=== PATIENT | female | born 1965 | race Caucasian/White ===

== ENCOUNTER → 2016-11-11 | Outpatient (CLI) | payer MEDICARE, MEDICAID ==
[~2016-11-11] MED LIST: AC325T; ASP325T; BNZT2T; BUPR150T6; CLTR1C90; DCS100C; LITH300T27; LVT.05T; RSP1T; RSP2T; TOLTA4; TPR100T
--- NOTE | 2016-11-13 19:16 | Diagnostic Imaging Report ---
Bilateral screening mammogram The current study was also evaluated with a Computer Aided Detection (CAD) system. Indication: Screening. No current complaints stated on the questionnaire. COMPARISON: 10/05/15. FINDINGS: The breasts are composed of scattered fibroglandular densities. There are scattered benign-appearing calcifications. There is a stable 6 mm focal asymmetry in the upper-outer aspect of the left breast from multiple prior exams suggestive of benign etiology. An intramammary lymph node is also suggested in the outer aspect of the right breast. Benign-appearing calcifications are seen. Allowing for technique and positional differences, no suspicious change is seen. IMPRESSION: No significant change. ACR BI-RADS Category 2: Benign findings. Result letter will be mailed to the patient. Note: At least 10% of breast cancer is not imaged by mammography. Dictated by: Dictated on workstation # [id number]
== END ==
LOC: RAD 14:23
PROVIDERS: ATTEND Family Medicine
DX: Z12.31 Encounter for screening mammogram for malignant neoplasm of breast (principal)
CPT/HCPCS: 77067

== ENCOUNTER → 2017-12-03 | Outpatient (CLI) | payer MEDICARE, MEDICAID ==
--- NOTE | 2017-12-03 12:11 | Diagnostic Imaging Report ---
INDICATION: Routine screening. COMPARISON is made with prior study from 11/11/2016 and 10/05/2015. 2-D and 3-D bilateral screening mammography was performed Computer Aided Detection (CAD) system. FINDINGS: Scattered fibroglandular densities are identified bilaterally. There is an enlarging nodular density noted in the right breast mid depth just lateral to the nipple line and superiorly located. This does appear to be fairly well-circumscribed. There are questionable small calcifications associated with the nodule. Additional views are recommended. There are benign calcifications bilaterally. The left breast is unremarkable. The axillae are unremarkable. IMPRESSION: BI-RADS 0 Enlarging nodular density in the upper outer right breast mid depth. Additional views and ultrasound are recommended for further evaluation. ACR BI-RADS Category 0: Incomplete. (Needs additional imaging evaluation). Result letter will be mailed to the patient. Note: At least 10% of breast cancer is not imaged by mammography. Dictated by: Dictated on workstation # [id number]
== END ==
LOC: RAD 11:15
PROVIDERS: ATTEND Family Medicine
DX: Z12.31 Encounter for screening mammogram for malignant neoplasm of breast (principal)
CPT/HCPCS: 77067

== ENCOUNTER → 2017-12-14 | Outpatient (CLI) | payer MEDICARE, MEDICAID ==
--- NOTE | 2017-12-14 15:44 | Diagnostic Imaging Report ---
INDICATION: Right breast density. The patient presents for additional views. COMPARISON: Recent screening study from 12/03/2017 and mammogram from 11/11/2016. TECHNIQUE: 2D and 3D unilateral right diagnostic mammography was performed including spot compression CC and ML as well as conventional mediolateral views. FINDINGS: The additional views confirm the presence of a circumscribed nodular density in the upper and outer right breast approximately 10 cm from the nipple. This contains punctate calcifications along the margin. Further evaluation with ultrasound is recommended. IMPRESSION: Circumscribed nodular density in the upper outer right breast 10 cm from the nipple, as described. Further evaluation with ultrasound is recommended. ACR BI-RADS Category 0: Incomplete. (Needs additional imaging evaluation). Result letter will be mailed to the patient. Note: At least 10% of breast cancer is not imaged by mammography. Dictated by: Dictated on workstation # [id number]
--- NOTE | 2017-12-14 15:50 | Diagnostic Imaging Report ---
INDICATION: Right breast density. This study was performed for further evaluation. COMPARISON: Correlation is made with the diagnostic mammogram from earlier this same day. FINDINGS: Sonographic interrogation of the upper outer right breast was performed. No sonographic abnormality is seen. There does appear to be a small lipoma just below the skin surface at the 9 o'clock location of the right breast measuring 13 mm x 10 mm. No mass is identified 9-10 cm from the nipple in the upper outer right breast to account for the mammographic abnormality. IMPRESSION: No significant sonographic abnormality is seen. In particular, no definite lesion is identified in the upper outer right breast 9-10 cm from the nipple to account for the mammographic abnormality. The mammographic features are benign; however, a followup right mammogram in 6 months is recommended to show continued stability. ACR BI-RADS Category 3: Probably benign findings. Dictated by: Dictated on workstation # [id number]
== END ==
LOC: RAD 14:34
PROVIDERS: ATTEND Family Medicine
DX: N63.11 Unspecified lump in the right breast, upper outer quadrant (principal)

== ENCOUNTER → 2018-06-24 | Outpatient (CLI) | payer MEDICARE, MEDICAID ==
--- NOTE | 2018-06-24 19:21 | Diagnostic Imaging Report ---
INDICATION: Right breast density. Patient presents for six-month followup. COMPARISON: Correlation is made with prior mammograms from 12/03/2017, 11/11/2016, and 10/05/2015. TECHNIQUE: 2D and 3D unilateral right diagnostic mammography was performed. The current study was also evaluated with a Computer Aided Detection (CAD) system. FINDINGS: A circumscribed nodule in the upper-outer right breast at mid depth appears stable. There are small punctate calcifications associated with the mass. No new mass is seen. No malignant-appearing microcalcifications are identified. Axilla is unremarkable. IMPRESSION: Stable right breast nodule. Additional followup in six months is recommended to assure continued stability. ACR BI-RADS Category 3: Probably benign findings. Result letter will be mailed to the patient. Note: At least 10% of breast cancer is not imaged by mammography. Dictated by: Dictated on workstation # [id number]
== END ==
LOC: RAD 12:38
PROVIDERS: ATTEND Family Medicine
DX: N63.10 Unspecified lump in the right breast, unspecified quadrant (principal)

== ENCOUNTER → 2019-06-22 | Outpatient (CLI) | payer MEDICARE, MEDICAID ==
--- NOTE | 2019-06-22 15:56 | Diagnostic Imaging Report ---
INDICATION: 6 month followup right breast nodule. COMPARISON: Correlation is made with the prior mammograms from 12/27/2018, 06/24/2018, 12/03/2017, and 11/11/2016. FINDINGS: The circumscribed nodule with punctate calcifications in the upper and outer aspect of the right breast at mid depth appears stable. No new mass or malignant appearing microcalcifications are seen. The right axilla is unremarkable. IMPRESSION: Stable right breast nodule. This now shows 18 months of stability. An additional 6 month followup to prove 2 years of stability is recommended. ACR BI-RADS Category 3: Probably benign findings. Result letter will be mailed to the patient. Note: At least 10% of breast cancer is not imaged by mammography. Dictated by: Dictated on workstation # [id number]
== END ==
LOC: RAD 13:28
PROVIDERS: ATTEND Family Medicine
DX: N63.10 Unspecified lump in the right breast, unspecified quadrant (principal)

== ENCOUNTER 2019-09-20 20:12 | Emergency (ER) | payer MEDICARE, MEDICAID ==
[~2019-09-20] VITALS: Ht 160 cm; Wt 81.2 kg
--- NOTE | 2019-09-20 20:39 | ED Integumentary General ---
General Chief Complaint: Laceration Stated Complaint: FALL - R EYE LAC Nursing Triage Note: FELL GOING UP THE STAIRS HAS A SMALL SKIN TEAR ON RIGHT EYEBROW Source: patient Exam Limitations: no limitations History of Present Illness Date Seen by Provider: Sep 20, 2019 Time Seen by Provider: 20:39 Allergies and Home Medications Allergies Coded Allergies: No Known Drug Allergies (Verified Allergy, Unknown, 02/25/08) Past Ghvylow-Myxwfh-Aihrfv Hx Patient Social History Recent Foreign Travel: No Contact w/Someone Who Travel: No Recent Infectious Disease Expo: No Past Medical History : No (ON DEPPO SHOT SO NO PERIODS) Physical Exam Vital Signs Vital Signs - First Documented 09/20/19 20:19 Temp 36.4 Pulse 97 Resp 20 B/P (MAP) 128/85 (99) Pulse Ox 95 O2 Delivery Room Air Capillary Refill : Less Than 3 Seconds Progress/Results/Core Measures Results/Orders My Orders Orders - MIRIAM GONZALEZ Dipht,Pertuss(Acell),Tet Adult (Boostrix (09/20/19 20:45) Vital Signs/I&O 09/20/19 20:19 Temp 36.4 Pulse 97 Resp 20 B/P (MAP) 128/85 (99) Pulse Ox 95 O2 Delivery Room Air Blood Pressure Mean: 99 Departure Impression Primary Impression: Skin tear Disposition: 01 HOME, SELF-CARE Condition: Stable/Unchanged Departure-Patient Inst. Decision time for Depature: 20:51 Referrals: BRIANNA VIDES DO (PCP/Family) Primary Care Physician Patient Instructions: Laceration Repair With Glue (DC) Add. Discharge Instructions: Watch for signs of infection such as redness, swelling, drainage, pain. Follow- up with your primary care provider as needed. Let the glue fall off on its own. Return back to the emergency room for worsening symptoms or concerns as needed. All discharge instructions reviewed with patient and/or family. Voiced understanding. MIRIAM GONZALEZ Sep 20, 2019 20:39
[2019-09-20] MEDS ORDERED: TETANUS,DIPTH,PERTUSS P/F (BOOSTRIX) 0.5 ML VIAL IM ONE (20:45)
[2019-09-20 21:15] VITALS: BP 128/85
--- OUTSIDE RECORDS SUMMARY | 2019-09-20 23:26 | XMS REPORT ---
Author Author [employer] Organization [employer] Address [address] [place] [address] Care Team Providers Care Tobacco Shaker Name Role Phone RAMÍREZ MONTOYA Unavailable Unavailable AMBER SANCHEZ Unavailable Unavailable BRENDA, JUANITA Unavailable Unavailable FREDY FINN Unavailable Unavailable RAMÍREZ UMANZOR Unavailable Unavailable BRENDA, JUANITA Unavailable PALLAVI, DAWNY Unavailable PALLAVI, DAWNY Unavailable RAMÍREZ MONTOYA Unavailable Unavailable PALLAVI, DAWNY Unavailable PALLAVI, DAWNY Unavailable BRENDA, JUANITA Unavailable RAMÍREZ MONTOYA Unavailable Unavailable JOHN BASS Unavailable PALLAVI, DAWNY Unavailable RAMÍREZ MONTOYA Unavailable Unavailable DEB CROSS Unavailable PALLAVI, DAWNY Unavailable JOHN BASS Unavailable JOHN BASS Unavailable RAMÍREZ MONTOYA Unavailable Unavailable PALLAVI, DAWNY Unavailable PALLAVI, DAWNY Unavailable PALLAVI, DAWNY Unavailable JOHN BASS Unavailable PALLAVI, DAWNY Unavailable PALLAVI, DAWNY Unavailable MARY ANN SOTO Unavailable PALLAVI, DAWNY Unavailable PALLAVI, DAWNY Unavailable PALLAVI, DAWNY Unavailable PALLAVI, DAWNY Unavailable PALLAVI, DAWNY Unavailable JANLILLIERAMÍREZ Unavailable Unavailable PALLAVI, DAWNY Unavailable GELBRIANNA CRESPO DO A Unavailable Unavailable PCP, NONE Unavailable Unavailable GELLENLEONOR BRIANNA A Unavailable Unavailable PALLAVI, DAWNY Unavailable JOHN BASS Unavailable Allergies Normalized Allergy Reported Date of Reaction(s) Care Provider Facility Allergy Type classification allergen Allergy Onset DA (21 Unclassified No Known Drug 02-25-2008 - no information BRIANNA Not Available sources.) Allergies GELLENDER , DO (46989) Medications Medication Ingredient Drug Dose Dates Status Sig Sig Care Class(es) (Normalized) (Original) Provid er no Vol-Plus no 01-09-20 Active no Vol-Plus no information 27-1 MG information 18 information 27-1 MG name (7 Translation Orally Once (no sources.) s: [ a day 1 phone) Vol-Plus tablet 24h 27-1 MG, Jan, Vol-Plus 30 day(s) 27-1 MG] Active no Vol-Plus no 01-09-20 Active take 1 Vol-Plus no information 27-1 MG information 18 tablet by 27-1 MG n beth (1 source.) mouth once Orally Once (no daily a day 1 phone) tablet 24h Jan, 30 day(s) Active Problems Active Problems Problem Normalized Date of Normalized Normalized Provider Fac ility Classification Problem(s) Problem Problem Problem Sta tus Onset/Resoluti Duration on Mood disorders Bipolar Chronic Active MARY ANN contreras (20 sources.) disorder, [address] [facility] current of [facility] episode [place] ([address]) hypomanic Translations: [ - Bipolar affective disorder, current episode hypomanic F31.0, Bipolar affective disorder, current episode hypomanic, Bipolar affective disorder, current episode hypomanic, Bipolar affective disorder, current episode hypomanic, - Bipolar affective disorder, current episode hypomanic F31.0] Spondylosis; Dorsalgia, Episodic Active [facility]NA [facility] Via intervertebral unspecified GELLENDER , DO [facility] - disorders; [place] other back (24872) problems (3 sources.) Residual Encounter for Episodic Active DAWJAYCE PALLAVI Com munity codes; prophylactic [facility] unclassified fluoride of [facility] (2 sources.) administration [place] ([address]) Translations: [ - Encounter for prophylactic fluoride administration Z29.3] Other injuries Knee, leg, Episodic Active BRIANNA [facility] Vi a and conditions ankle, and GELLENDER , DO [place] due to foot injury Hospital - external [place] causes (3 (91718) sources.) Other Other abnormal Episodic Active BRIANNA Not Marisabel ilable screening for and GELLENDER , DO (98407) suspected inconclusive conditions findings on (not mental diagnostic disorders or imaging of infectious breast disease) (20 Translations: sources.) [ ENCNTR SCREEN MAMMOGRAM FOR MALIGNANT NE, OTH SCREEN MAMMO-MALIGN NEOPLASM OF CHRISTIANO] External cause Other external Episodic Active BRIANNA [facility] Via codes: cause status GELLENDER , DO [place] Unspecified (1 Hospital - source.) [place] ([address]) External cause Unspecified Episodic Active BRIANNA [facility] V ia codes: Fall (1 fall GELLENDER , DO [place] source.) Hospital - [place] (69281) Nonmalignant Unspecified Episodic Active BRIANNA [facility] Via breast lump in the GELLENDER , DO [place] conditions (10 right breast, Hospital - sources.) unspecified [place] quadrant (32431) Translations: [ UNSPECIFIED LUMP IN THE RIGHT BREAST, UP, UNSPECIFIED LUMP IN THE LEFT BREAST, UNS, UNSPECIFIED LUMP IN THE RIGHT BREAST, UN] Past or Other Problems Problem Normalized Date of Normalized Normalized Provider Fac ility Classification Problem(s) Problem Problem Problem Sta tus Onset/Resoluti Duration on Residual Encounter for no information no information RAM[facility]REZ [facility]GENEFormerly [facility] codes; prophylactic 78106 [facility] unclassified fluoride of [facility] (2 sources.) administration [place] () Translations: [ - Encounter for prophylactic fluoride administration Z29.3] External cause Other external no information no information PATRICIA HARD Not Available codes: cause status GELLENDER , DO (40830) Unspecified (2 sources.) External cause Unspecified no information no information IQRA D Not Available codes: Fall (2 fall GELLENDER , DO (05919) sources.) Nonmalignant Unspecified no information no information BRIANNA Not Available breast lump in the GELLENDER , DO (09860) conditions (6 right breast, sources.) upper outer quadrant Translations: [ UNSPECIFIED LUMP IN THE RIGHT BREAST, UN] Procedures Procedure Normalized Procedure Procedure Result Performer Facility Date 06-01-2018 Dental prophylaxis no information no name (no phone ) [facility] ([id number]) 02-09-2018 Dental prophylaxis no information no name (no phone ) [facility] (19269) 10-21-2017 Dental prophylaxis no information no name (no phone ) [facility] (03480) 04-07-2018 [facility] visit, estab pt no information no name (no jolie ne) [facility] (83544) 03-10-2018 [facility] visit, estab pt no information no name (no jolie ne) [facility] (82986) 02-10-2018 [facility] visit, estab pt no information no name (no jolie ne) [facility] ([id number]) 01-08-2018 [facility] visit, estab pt no information no name (no jolie ne) [facility] (23718) 11-27-2017 [facility] visit, estab pt no information no name (no jolie ne) [facility] (42873) 09-29-2018 [facility] visit, estab no information no name (no jolie ne) [facility] (21034) 01-01-2018 [facility] visit, estab no information no name (no jolie ne) [facility] (37072) 09-29-2017 [facility] visit, estab no information no name (no jolie ne) [facility] (00711) 02-09-2018 Intraoral periapical no information no name (no jolie ne) [facility] add [facility] 02-09-2018 [place] ([address]004) - 02-09-2018 02-09-2018 Intraoral periapical no information no name (no jolie ne) [facility] ([id number]) 03-10-2018 LAB NOT BILLED BY no information no name (no phone) [facility] (40411) 09-29-2018 Psychotherapy no information no name (no phone) [facility] ([id number]) 01-01-2018 Psychotherapy no information no name (no phone) [facility] w/patient 30 minutes [facility] ([id number]) 09-29-2017 Psychotherapy no information no name (no phone) Co Critical access hospital w/patient 30 minutes [facility] (16336) 06-01-2018 Topical fluoride no information no name (no phone) [facility]57520[facility] 02-09-2018 Topical fluoride no information no name (no phone) Critical access hospital[facility]ish [facility] (17917) 10-21-2017 Topical fluoride no information no name (no phone) [facility] access hospital[facility] (67910) Immunizations The data below is from unstructured sources No Known Immunizations No Known Immunizations No Known Immunizations No Known Immunizations No Known Immunizations No Known Immunizations No Known Immunizations No Known Immunizations No Known Immunizations No Known Immunizations No Known Immunizations No Known Immunizations No Known Immunizations No Known Immunizations No Known Immunizations No Known Immunizations No Known Immunizations No Known Immunizations No Known Immunizations No Known Immunizations No Known Immunizations No Known Immunizations No Known Immunizations No Known Immunizations No Known Immunizations No Known Immunizations No Known Immunizations No Known Immunizations No Known Immunizations No Known Immunizations No Known Immunizations No Known Immunizations No Known Immunizations No Known Immunizations No Known Immunizations No Known Immunizations No Known Immunizations No Known Immunizations No Known Immunizations No Known Immunizations No Known Immunizations No Known Immunizations No Known Immunizations No Known Immunizations No Known Immunizations No Known Immunizations No Known Immunizations No Known Immunizations No Known Immunizations No Known Immunizations No Known Immunizations No Known Immunizations No Known Immunizations No Known Immunizations No Known Immunizations No Known Immunizations No Known Immunizations No Known Immunizations No Known Immunizations No Known Immunizations No Known Immunizations No Known Immunizations No Known Immunizations No Known Immunizations No Known Immunizations Results Test Name Value Interpretation Reference Range Date Time Fa cility (Normalized) (Normalized) (Medline Reference) No panel information on 2019-01-05 1-Hydroxymidazol no information (no code) [facility] (U) [facility] [Mass/Vol] [facility] (17201) 7-Aminoclonazepa no information (no code) [facility] m (U) [Mass/Vol] [facility] (98980) Alpha no information (no code) [facility] hydroxyalprazola [facility] m (U) [Mass/Vol] [facility] (43297) Alpha no information (no code) [facility] hydroxytriazolam [facility] (U) [Mass/Vol] [facility] (62212) Amphetamines Ql no information (no code) [facility] th (U) [facility] (65516) Barbiturates Ql no information (no code) Community [facility] th (U) [facility] (02437) Benzodiazepines no information (A) [facility] Ql (U) [facility] (20424) Benzoylecgonine no information (no code) Community [facility] Ql (U) [facility] (49421) COMMENT no information (no code) [facility] (42070) Creatinine (U) 18.4 mg/dL (L) [facility] [Mass/Vol] [facility] (88097) Drug screen CONSISTENT (no code) [facility] comment (U) [facility] [Interp] [facility] (66092) Hydroxyethylflur no information (no code) Community [facility] azepam (U) [facility] [Mass/Vol] [facility] (91169) Lorazepam (U) 101 (H) [facility] [Mass/Vol] [facility] (19180) Methadone Ql (U) no information (no code) [facility] (54398) Nordiazepam (U) no information (no code) [facility] [Mass/Vol] [facility] (67342) Opiates Ql (U) no information (no code) [facility] (16355) Oxazepam (U) no information (no code) [facility] [Mass/Vol] [facility] (24152) Oxidants Ql (U) no information (no code) [facility] (69758) Oxycodone Ql (U) no information (no code) Community a [facility] [place] (25353) pH (U) 6.66 [pH] (no code) 4.6 - 8 [pH] [facility] (69428) Phencyclidine Ql no information (no code) [facility] (U) [facility] (51616) Prescribed Drug Lorazepam (no code) [facility] th 1 [facility] (63725) Specific gravity 1.003 (no code) [facility] (U) [Rel [place] [facility] (66041) Temazepam (U) no information (no code) [facility] [Mass/Vol] [facility] (11899) Tetrahydrocannab no information (no code) [facility] inol Ql (U) [facility] (52711) No panel information on 2017-01-22 Bacteria Note (no code) 01-22-2017 Not Available identified Aer 14:54-0400 (03888) cx Nom (Genital specimen) No panel information on 2017-01-21 [employer] Cyto Comment (no code) 01-21-2017 Not Availa ble stain Nom 18:51-0400 ([id number]) (Cvx/Vag) [ID] Diagnosis ICD Comment (no code) 01-21-2017 Not Availabl e code 18:51-0400 ([id number]) [Identifier] Microscopic . (no code) 01-21-2017 Not Available observation 18:51-0400 ([id number]) Other stain Nom (Unsp spec) Note: Comment (no code) 01-21-2017 Not Available 18:51-0400 ([id number]) Pathology report Comment (no code) 01-21-2017 Not Avail able final diagnosis 18:51-0400 ([id number]) Narrative Statement of Comment (no code) 01-21-2017 Not Available adequacy Cyto 18:51-0400 (67518) stain (Cvx/Vag) [Interp] no information Comment (no code) 01-21-2017 Not Availab le 18:51-0400 ([id number]) Vital Signs Vital Sign Value Interpretation Reference Date Time Care Prov ider Facility (Normalized) (Normalized) Range BMI (Body Mass 38.94 kg/m2 (no code) 15 - 25 kg/m2 10-2018 [facility] Index) 12:20-0400 09491 [facility] (59026) BMI (Body Mass 38.94 kg/m2 (no code) 15 - 25 kg/m2 03-10-2018 [facility] Index) 11:40-0400 67108 [facility] (82135) BMI (Body Mass 40.64 kg/m2 (no code) 15 - 25 kg/m2 01-08-2018 D [facility] Index) 15:20-0400 71480 [facility] (37649) BMI (Body Mass 40.93 kg/m2 (no code) 15 - 25 kg/m2 11-27-2017 [facility] Index) 16:00-0400 30145 [facility] (11020) Height 163.32 cm (no code) cm 04-07-2018 [facility] 12:200400 72391 [facility] (47984) Height 163.32 cm (no code) cm 03-10-2018 [facility] 11:40-0400 15227 [facility] (04347) Height 163.32 cm (no code) cm 01-08-2018 [facility] 15:200400 19349 [facility] (20269) Height 163.32 cm (no code) cm 11-27-2017 [facility] 16:000400 51210 [facility] (91710) Weight 103.87 kg (no code) kg 04-07-2018 [facility] 12:20-0400 43920 [facility] (74983) Weight 103.87 kg (no code) kg 03-10-2018 [facility] 11:40-0400 73953 [facility] (49122) Weight 108.41 kg (no code) kg 01-08-2018 [facility] 15:200400 49165 [facility] (26525) Weight 109.18 kg (no code) kg 11-27-2017 [facility] 16:00-0400 97406 [facility] (96514) Interventions No Information Plan of Treatment Normalized Care Care Detail Care Activity Date Care Provider F acility Activity () [facility] 04-30-2018 - MICHELLE JOHNSTONNHART [address] [facility] 04-30-2018 - [facility] F/u 60 min 04-30-2018 [place] (05051) (-60) [facility] 07-08-2018 - RAMÍREZ MONTOYA 16704 [facility] Behavior[facility] Health COUNT INCLUDES THE [facility] 07-08-2018 - [facility] F/u 60 min 07-08-2018 [place] (65657) ([facility]) [facility] 07-14-2018 - [facility] [address] [facility] F/U 20 COUNT INCLUDES THE [facility] 07-14-2018 - [facility] min 07-14-2018 [place] (85753) [facility] 08-17-2019 [facility] [address] [phone] [facility] (33814) [facility] 09-28-2019 JOHN BASS [address] ([address]) [facility] 09-07-2019 [facility] [place] [address] ([address]) [facility] 08-22-2019 - [facility] [phone] [facility] 08-22-2019 - [facility] 08-22-2019 [place] (60153) no information no information no information [facility] 667 49 [facility] (60036) Goals No Information Social History No Information Functional Status No Information Mental Status No Information Encounters Encounter Normalized Encounter Encounter Diagnosis Care Provi lenoor Organization Date Type 04-30-2018 (-60) Behavioral Schizoaffective JOHN ACUNA (no [facility] - Health F/u 60 min disorder, depressive phone) (no phone) 04-30-2018 type - 04-30-2018 06-01-2018 (D-AUDP) Encounter for RAMÍREZ MONTOYA (no [employer] - D-Developmental prophylactic fluoride phone) DENTAL (no phone) 06-01-2018 Program (Adult administration - Outreach) 06-01-2018 02-09-2018 (D-AUDP) Encounter for dental MARY ANNESTRADA SOTO (no ph one) [facility] (no - D-Developmental examination and phone) 02-09-2018 Program (Adult cleaning without - Outreach) abnormal findings 02-09-2018 05-12-2018 (PSY-FU-20) Psychiatry no information MICHELLE MEDINA T (no [facility] - F/U 20 min phone) (no phone) 05-12-2018 - 05-12-2018 04-07-2018 (PSY-FU-20) Psychiatry Schizoaffective MICHELLE NIEVESA RT (no [employer] [facility] - F/U 20 min disorder, depressive phone) (no p steve) 04-07-2018 type - 04-07-2018 03-10-2018 (PSY-FU-20) Psychiatry Schizoaffective MICHELLE NIEVESA RT (no [facility] - F/U 20 min disorder, depressive phone) (no p steve) 03-10-2018 type - 03-10-2018 02-10-2018 (PSY-FU-20) Psychiatry Schizoaffective MICHELLE JOHNSTONNHA RT (no [facility] - F/U 20 min disorder, depressive phone) (no p steve) 02-10-2018 type - 02-10-2018 09-23-2018 [facility] Disorder of teeth and MARY ANN SOTO (n o phone) [facility]GetLikemindsCes[facility] PRICE (no - supporting structures, phone) 09-23-2018 unspecified - 09-23-2018 07-04-2019 [facility] Dental caries, CHICHO TEE (no [facility] - DENTAL unspecified phone) DENTAL (no jolie ne) 07-04-2019 - 07-04-2019 06-01-2019 [facility] Encounter for dental CHICHO RAZO S (no [employer] - DENTAL examination and phone) DENTAL (no phone) 06-01-2019 cleaning without - abnormal findings 06-01-2019 08-17-2019 [facility] Schizoaffective JOHN ACUNA (no [facility] disorder, depressive phone) (no phone) type 08-10-2019 [facility] Schizoaffective DAWNY BARNHAR T (no [facility] disorder, depressive phone) (no phone) type 07-27-2019 [facility] Schizoaffective DAWNY BARNHAR T (no [facility] disorder, depressive phone) (no phone) type 07-20-2019 [facility] Schizoaffective DAWNY BARNHAR T (no [facility] - disorder, depressive phone) (no phone ) 07-20-2019 type - 07-20-2019 06-27-2019 [facility] Schizoaffective JOHN ACUNA (no [facility] - disorder, depressive phone) (no phone ) 06-27-2019 type - 06-27-2019 06-17-2019 [facility] Schizoaffective DAWNY BARNHAR T (no [facility] - disorder, depressive phone) (no phone ) 06-17-2019 type - 06-17-2019 05-06-2019 [facility] Schizoaffective DAWNY BARNHAR T (no [facility] - disorder, depressive phone) (no phone ) 05-06-2019 type - 05-06-2019 05-03-2019 [facility] Schizoaffective JOHN ACUNA (no [facility] - disorder, depressive phone) (no phone ) 05-03-2019 type - 05-03-2019 04-06-2019 [facility] Schizoaffective DAWNY BARNHAR T (no [facility] - disorder, depressive phone) (no phone ) 04-06-2019 type - 04-06-2019 03-08-2019 [facility] Schizoaffective JOHN ACUNA (no [facility] - disorder, depressive phone) (no phone ) 03-08-2019 type - 03-08-2019 01-05-2019 [facility] Schizoaffective JOHN ACUNA (no [facility] - disorder, depressive phone) (no phone ) 01-05-2019 type - 01-05-2019 01-05-2019 [facility] Schizoaffective INÉSNY PRESTONNHAR T (no [facility] - disorder, depressive phone) (no phone ) 01-05-2019 type - 01-05-2019 11-10-2018 [facility] Schizoaffective JOHN ACUNA (no [facility] - disorder, depressive phone) (no phone ) 11-10-2018 type - 11-10-2018 10-06-2018 [facility] Schizoaffective MICHELLE JOHNSTONNHAR T (no [facility] - disorder, depressive phone) (no phone ) 10-06-2018 type - 10-06-2018 09-29-2018 [facility] Schizoaffective JOHN ACUNA (no [facility] - disorder, depressive phone) (no phone ) 09-29-2018 type - 09-29-2018 08-18-2018 [facility] Schizoaffective JOHN ACUNA (no [facility] - disorder, depressive phone) (no phone ) 08-18-2018 type - 08-18-2018 07-26-2018 [facility] Schizoaffective JOHN ACUNA (no [facility] - disorder, depressive phone) (no phone ) 07-26-2018 type - 07-26-2018 07-14-2018 [facility] Schizoaffective MICHELLE NIEVESAR T (no [facility] - disorder, depressive phone) (no phone ) 07-14-2018 type - 07-14-2018 07-08-2018 [facility] Schizoaffective JOHN ACUNA (no [facility] - disorder, depressive phone) (no phone ) 07-08-2018 type - 07-08-2018 01-11-2018 [facility] no information MICHELLE OLIVO (no [facility] - phone) (no phone) 01-11-2018 - 01-11-2018 05-11-2019 [facility] Encounter for dental CHICHO STILILLIE (no [facility] DENTAL examination and phone) [facility] DENTAL (no 05-11-2019 cleaning without phone) - abnormal findings 05-11-2019 01-25-2019 [facility] Disorder of teeth and RAMÍREZTORI ANANDO N (no [facility] DENTAL supporting structures, phone) [facility] (no 01-25-2019 unspecified phone) - 01-25-2019 02-10-2018 Patient encounter no information no name (no phone) no organization name (no phone) 01-08-2018 Patient encounter no information no name (no phone) no organization name (no phone) 01-01-2018 Patient encounter no information no name (no phone) no organization name (no phone) NEGATED Patient encounter no information no name (no phone) no organization name 12-14-2017 (no phone) NEGATED Patient encounter no information no name (no phone) no organization name 12-03-2017 (no phone) NEGATED Patient encounter no information no name (no phone) no organization name 11-27-2017 (no phone) 09-29-2017 Patient encounter no information no name (no phone) no organization name (no phone) 08-19-2017 Patient encounter no information no name (no phone) no organization name (no phone) 07-28-2017 Patient encounter no information no name (no phone) no organization name (no phone) 08-17-2019 Patient encounter no information NONE PCP (no phone ) [facility] (no phone) 08-10-2019 Patient encounter no information no name (no phone) no organization name procedure (no phone) 07-20-2019 Patient encounter no information no name (no phone) no organization name procedure (no phone) 06-22-2019 Patient encounter no information no name (no phone) no organization name procedure (no phone) 06-01-2019 Patient encounter no information no name (no phone) no organization name procedure (no phone) 03-08-2019 Patient encounter no information no name (no phone) no organization name procedure (no phone) 01-05-2019 Patient encounter no information no name (no phone) no organization name procedure (no phone) 12-27-2018 Patient encounter no information no name (no phone) no organization name procedure (no phone) 11-10-2018 Patient encounter no information no name (no phone) no organization name procedure (no phone) 10-06-2018 Patient encounter no information no name (no phone) no organization name procedure (no phone) 08-18-2018 Patient encounter no information no name (no phone) no organization name procedure (no phone) 07-26-2018 Patient encounter no information no name (no phone) no organization name procedure (no phone) 07-14-2018 Patient encounter no information no name (no phone) no organization name procedure (no phone) 07-08-2018 Patient encounter no information no name (no phone) no organization name procedure (no phone) 06-24-2018 Patient encounter no information no name (no phone) no organization name procedure (no phone) 06-24-2018 Patient encounter no information no name (no phone) no organization name procedure (no phone) 12-14-2017 Patient encounter no information no name (no phone) no organization name procedure (no phone) 12-03-2017 Patient encounter no information no name (no phone) no organization name procedure (no phone) 11-11-2016 Patient encounter no information no name (no phone) no organization name procedure (no phone) 03-28-2016 Patient encounter no information no name (no phone) no organization name procedure (no phone) 03-28-2016 Patient encounter no information no name (no phone) no organization name procedure (no phone) 10-05-2015 Patient encounter no information no name (no phone) no organization name procedure (no phone) 10-05-2015 Patient encounter no information no name (no phone) no organization name procedure (no phone) 11-01-2014 Patient encounter no information no name (no phone) no organization name procedure (no phone) 11-01-2014 Patient encounter no information no name (no phone) no organization name procedure (no phone) 09-08-2014 Patient encounter no information no name (no phone) no organization name procedure (no phone) 07-22-2013 Patient encounter no information no name (no phone) no organization name procedure (no phone) 07-08-2012 Patient encounter no information no name (no phone) no organization name procedure (no phone) 07-03-2011 Patient encounter no information no name (no phone) no organization name procedure (no phone) 02-09-2018 Periodic oral no information no name (no phone) no organization name evaluation (no phone) 08-10-2019 Telephone encounter no information MICHELLE NIEVESART ( no [facility] phone) (no phone) 07-13-2019 Telephone encounter Schizoaffective DAWNY PALLAVI (no [facility] - disorder, depressive phone) (no phone ) 07-13-2019 type - 07-13-2019 06-23-2019 Telephone encounter Schizoaffective DAWNY PALLAVI (no [facility] [address] (no - disorder, depressive phone) phone) 06-23-2019 type - 06-23-2019 05-09-2019 Telephone encounter Schizoaffective DAWNY PALLAVI (no [facility] - disorder, depressive phone) (no phone ) 05-09-2019 type - 05-09-2019 05-06-2019 Telephone encounter Schizoaffective DAWNY PALLAVI (no [facility] - disorder, depressive phone) (no phone ) 05-06-2019 type - 05-06-2019 01-18-2019 Telephone encounter Schizoaffective DAWNY PALLAVI (no [facility] - disorder, depressive phone) (no phone ) 01-18-2019 type - 01-18-2019 12-30-2018 Telephone encounter Schizoaffective DAWNY PALLAVI (no [facility] - disorder, depressive phone) (no phone ) 12-30-2018 type - 12-30-2018 12-17-2018 Telephone encounter Schizoaffective DAWNY PALLAVI (no [facility] - disorder, depressive phone) (no phone ) 12-17-2018 type - 12-17-2018 11-19-2018 Telephone encounter Schizoaffective DAWNY PALLAVI (no [facility] - disorder, depressive phone) (no phone ) 11-19-2018 type - 11-19-2018 10-27-2018 Telephone encounter Schizoaffective DAWNY PALLAVI (no [facility] - disorder, depressive phone) (no phone ) 10-27-2018 type - 10-27-2018 09-29-2018 Telephone encounter Schizoaffective MICHELLE OLIVO (no [facility] - disorder, depressive phone) (no phone ) 09-29-2018 type - 09-29-2018 07-05-2018 Telephone encounter Schizoaffective MICHELLE OLIVO (no [facility] - disorder, depressive phone) (no phone ) 07-05-2018 type - 07-05-2018 06-07-2018 Telephone encounter Schizoaffective MICHELLE NIEVESART (no [facility] - disorder, depressive phone) (no phone ) 06-07-2018 type - 06-07-2018 04-16-2018 Telephone encounter Schizoaffective MICHELLE OLIVO (no [facility] - disorder, depressive phone) (no phone ) 04-16-2018 type - 04-16-2018 04-13-2018 Telephone encounter no information MICHELLE OLIVO ( no [facility] - phone) (no phone) 04-13-2018 - 04-13-2018 02-17-2018 Telephone encounter Schizoaffective MICHELLE OLIVO (no [facility] - disorder, depressive phone) (no phone ) 02-17-2018 type - 02-17-2018 02-16-2018 Telephone encounter Schizoaffective MICHELLE OLIVO (no [facility] - disorder, depressive phone) (no phone ) 02-16-2018 type - 02-16-2018 no information Encounter for dental no name (no phone) no or ganization name examination and (no phone) cleaning without abnormal findings no information Dental examination no name (no phone) no orga nization name (no phone) no information Encounter for no name (no phone) no organiza tion name gynecological (no phone) examination (general) (routine) without abnormal findings Medical Equipment No Information Payers No Information History general Narrative - Reported Note Type Note Facility History general Narrative - Reported Type Medical Schizoaffective disorder, d epressive type History Medical Bipolar affective disorder, current episode hypomanic History Surgical No Surgical history informa tion History [facility] ([id number]) Summary Purpose eClinicalWorks SubmissioneClinicalWorks SubmissioneClinicalWorks SubmissioneClinicalWorks SubmissioneClinicalWorks Submission Additional Source Comments This clinical document has been generated using [employer] software that has been certified by the Office of the National Coordinator for Health Information Technology (ONC 15.99.04.3023.Diam.[id number]) and the National Committee for Head Of Partner Development (NCQA, as an eMeasure certified technology). FOR RECORDS PERTAINING TO PATIENTS WHO ARE OR HAVE BEEN ENROLLED IN A CHEMICAL D EPENDENCY/SUBSTANCE ABUSE PROGRAM, SOME INFORMATION MAY BE OMITTED. This clinica l summary was aggregated from multiple sources. Caution should be exercised in using it in the provision of clinical care. This summary normalizes information from multiple sources, and as a consequence, information in this document may ma terially change the coding, format and clinical context of patient data. In frank tion, data may be omitted in some cases. CLINICAL DECISIONS SHOULD BE BASED ON T HE PRIMARY CLINICAL RECORDS. [employer] provides no warranty or guara ntee of the accuracy or completeness of information in this document.The followi ng information is based on time limited clinical information UNRECOGNIZED CONTENT PROVIDED BELOW FOR UNRECOGNIZED SECTION REASON FOR VISIT Requests return [facility] f/[facility] f/udepakote 02/16/2018ADULT OUTREACH CLASS [facility] f/uB f/u WB-MA, LABSMedication questionMedication questionmed refill f /u. Torres RNmed refill f/u UNRECOGNIZED CONTENT PROVIDED BELOW FOR UNRECOGNIZED SECTION MEDICAL (GENERAL) HISTORY Type Description Date Surgical History No know Surgical history
--- OUTSIDE RECORDS SUMMARY | 2019-09-20 23:27 | XMS REPORT ---
Author Author Afshan OLIVO Organization [facility] Address [address] [place] [address] Care Team Providers Care Director Ship Name Role Phone MICHELLE OLIVO Unavailable PROBLEMS Type Condition ICD9-CM Code [id number] Code Onset Dates Condition S tatus SNOMED Code Problem Bipolar affective disorder, current episode hypomanic F31.0 Active 87246138 Problem Schizoaffective disorder, depressive type F25.1 Active [id number] ALLERGIES No Information ENCOUNTERS Encounter Location Date Diagnosis [facility] [address] [id number] [address] [place] [id number] Jul, [facility] [address] [id number] [address] [place] [phone] Jul, [facility] [address] [facility] [id number] [address] [place] [id number] Jun, Schizoaffective disorder, de pressive type F25.1 [facility] [address] [id number] [address] [place] [id number] May, Encounter for prophylactic f luoride administration Z29.3 [facility] [address] [facility] [id number] [address] [place] [id number] Apr, Schizoaffective disorder, de pressive type F25.1 [facility] [address] [facility] [id number] [address] [place] [id number] Apr, Schizoaffective disorder, de pressive type F25.1 [facility] [address] [facility] [id number] [address] [place] [phone] Apr, [facility] [address] [facility] [id number] [address] [place] [phone] Apr, Schizoaffective disorder, de pressive type F25.1 and Bipolar affective disorder, current episode hypomanic F31.0 [facility] [address] [id number] [address] [place] [phone] Mar, Schizoaffective disorder, de pressive type F25.1 and Bipolar affective disorder, current episode hypomanic F31.0 [facility] [address] [id number] [address] [place] [id number] Feb, Schizoaffective disorder, de pressive type F25.1 [facility] [address] [id number] [address] [place] [phone] Feb, Schizoaffective disorder, de pressive type F25.1 [facility] [address] [facility] [id number] [address] [place] [phone] Feb, Schizoaffective disorder, de pressive type F25.1 and BMI 40.0-44.9, adult Z68.41 [facility] [address] [id number] [address] [place] [address] [phone] Feb, Dental examination Z01.20 [facility] [address] [facility] [id number] [address] [place] [phone] Jan, [facility] [address] [facility] [id number] [address] [place] [phone] Jan, Schizoaffective disorder, de pressive type F25.1 and BMI 40.0-44.9, adult Z68.41 [facility] [address] [id number] [address] [place] [phone] Dec, Schizoaffective disorder, de pressive type F25.1 [facility] [address] [facility] [id number] [address] [place] [phone] November, Schizoaffective disorder, de pressive type F25.1 and BMI 40.0-44.9, adult Z68.41 [facility] [address] [id number] [address] [place] [phone] Oct, Schizoaffective disorder, de pressive type F25.1 [facility] [address] [id number] [address] [place] [address] [phone] Oct, Dental examination Z01.20 [facility] [address] [id number] [address] [place] [phone] Sep, Schizoaffective disorder, de pressive type F25.1 [facility] [address] [id number] [address] [place] [phone] Aug, Schizoaffective disorder, de pressive type F25.1 and BMI 40.0-44.9, adult Z68.41 [facility] [address] [id number] [address] [place] [phone] Jul, Schizoaffective disorder, de pressive type F25.1 [facility] [address] [facility] [id number] [address] [place] [id number] Jul, Schizoaffective disorder, de pressive type F25.1 [facility] [address] [id number] [address] [place] [phone] Jul, Schizoaffective disorder, de pressive type F25.1 [facility] [address] [id number] [address] [place] [address] [id number] Jul, Dental examination Z01.20 [facility] [address] [id number] [address] [place] [address] [id number] Jul, Dental examination Z01.20 [facility] [address] [id number] [address] [place] [phone] Jun, Schizoaffective disorder, de pressive type F25.1 [facility] [address] [facility] [id number] [address] [place] [phone] May, Schizoaffective disorder, de pressive type F25.1 and BMI 40.0-44.9, adult Z68.41 [facility] [address] [facility] [id number] [address] [place] [phone] Apr, Schizoaffective disorder, de pressive type F25.1 [facility] [address] [id number] [address] [place] [id number] Mar, Schizoaffective disorder, de pressive type F25.1 [facility] [address] [id number] [address] [place] [address] [id number] Mar, 2017 Dental examination Z01.[id number] [place] [address] [phone] [id number] Feb, 2017 Dental examination Z01.20 [facility] [address] [id number] [address] [place] [phone] Feb, Schizoaffective disorder, de pressive type F25.1 [facility] [address] [facility] [id number] [address] [place] [phone] Feb, Schizoaffective disorder, de pressive type F25.1 [facility] [address] [facility] [id number] [address] [place] [phone] Feb, [facility] [address] [facility] [id number] [address] [place] [phone] Feb, Schizoaffective disorder, de pressive type F25.1 [facility] [address] [facility] [id number] [address] [place] [phone] Jan, Schizoaffective disorder, de pressive type F25.1 [facility] [address] [id number] [address] [place] [phone] Jan, Well woman exam with routine gynecological exam Z01.419 [facility] [address] [id number] [address] [place] [phone] Jan, Schizoaffective disorder, de pressive type F25.1 [facility] [address] [id number] [address] [place] [address] [phone] Dec, Encounter for dental examina tion and cleaning without abnormal findings Z01.[address] [facility] [address] [id number] [place] [id number] Dec, Dental examination Z01.20 [facility] [address] [id number] [address] [place] [phone] Dec, Schizoaffective disorder, de pressive type F25.1 [facility] [address] [id number] [address] [place] [phone] Oct, Schizoaffective disorder, de pressive type F25.1 [facility] [address] [id number] [address] [place] [phone] Oct, Schizoaffective disorder, de pressive type F25.1 [facility] [address] [id number] [address] [place] [address] [phone] Sep, Dental examination Z01.20 [facility] [address] [id number] [address] [place] [phone] Aug, Schizoaffective disorder, de pressive type F25.1 [facility] [address] [id number] [address] [place] [phone] Jul, Schizoaffective disorder, de pressive type F25.1 [facility] [address] [id number] [address] [place] [address] [id number] Jun, Encounter for dental examina tion and cleaning without abnormal findings Z01.[address] [facility] [address] [id number] [id number] Jun, Dental examination Z01.20 [facility] [address] [id number] [address] [place] [phone] Mar, Dental examination Z01.20 [facility] [address] [id number] [address] [place] [address] [phone] Feb, Encounter for dental examina tion and cleaning without abnormal findings Z01.20 [facility] [address] [id number] [id number] November, Encounter for dental examination Z01.20 [facility] [address] [id number] [place] [id number] Oct, Dental examination Z01.20 [facility] [address] [id number] [address] [place] [address] [id number] Oct, Encounter for dental examina tion and cleaning without abnormal findings Z01.20 [facility] [address] [id number] [address] [place] [address] [id number] Jul, Dental examination Z01.20 [facility] [address] [id number] [address] [place] [address] [phone] May, Encounter for dental examina tion Z01.20 [facility] [address] [id number] [address] [place] [address] [id number] Jan, Dental examination V72.2 IMMUNIZATIONS No Known Immunizations SOCIAL HISTORY Never Assessed REASON FOR VISIT med refill PLAN OF CARE VITAL SIGNS MEDICATIONS Medication Instructions Dosage Frequency Start Date End Date Duration S tatus Latuda 120 MG Orally Once a day 1 tablet with food 24h 30 days Active RESULTS No Results PROCEDURES No Known procedures INSTRUCTIONS MEDICATIONS ADMINISTERED No Known Medications MEDICAL (GENERAL) HISTORY Type Description Date Surgical History No know Surgical history
--- OUTSIDE RECORDS SUMMARY | 2019-09-20 23:27 | XMS REPORT ---
Author Author Afshan OLIVO Organization [facility] [address] [place] [address] Care Team Providers Care Quality Compliance Manager Name Role Phone MICHELLE OLIVO Unavailable PROBLEMS Type Condition ICD9-CM Code JDL03-MD Code Onset Dates Condition S tatus SNOMED Code Problem Schizoaffective disorder, depressive type F25.1 Active 48521992 Problem Bipolar affective disorder, current episode hypomanic F31.0 Active 22632910 ALLERGIES No Information ENCOUNTERS Encounter Location Date Diagnosis OUTREACH [facility] [place] [address] [id number] [address] 17 Aug, 2019 [facility] [place] [address] [address] Aug, [facility] [place] [address] [address] Jul, Schizoaffective disorder, depressive typ e F25.1 [facility], [place] [id number] [place] [address] Jul, Schizoaffective disorder, depressive typ e F25.1 [facility] [address] [facility] [place] [address] Jun, Caries K02.9 [facility], [place] [id number] [place] [address] Jun, Schizoaffective disorder, depressive typ e F25.1 [facility] [address] [facility] [address] [id number] [place] [address] Jun, [facility] [address] [facility] [address] [id number] [place] [address] Jun, Schizoaffective disorder, depressive type F25.1 [facility], [place] [id number] [place] [address] Jun, Schizoaffective disorder, depressive typ e F25.1 [facility] [address] [facility] [place] [id number] May, Dental examination Z01.20 and Caries K02 .9 [facility] [address] [address] [id number] [address] May, Dental examination Z01.20 ; Oral health maintenance status requiring routine preventive dental care K08.9 and Caries K02.9 [facility], [place] [address] [address] May, Schizoaffective disorder, depressive typ e F25.1 [facility], [place] [address] [address] May, Schizoaffective disorder, depressive typ e F25.1 [facility] [place] [address] [address] May, Schizoaffective disorder, depressive typ e F25.1 [facility] [place] [address] [address] Apr, Schizoaffective disorder, depressive typ e F25.1 [facility] [place] [address] [address] Apr, Schizoaffective disorder, depressive typ e F25.1 [facility] [place] [address] [address] Mar, Schizoaffective disorder, depressive typ e F25.1 [facility] [address] [address] [id number] [address] Jan, Oral health maintenance stat us requiring routine preventive dental care K08.9 [facility], [place] [address] [address] Jan, Schizoaffective disorder, depressive typ e F25.1 [facility], [place] [address] [address] Jan, Schizoaffective disorder, depressive typ e F25.1 [facility] [place] [address] [address] Jan, Schizoaffective disorder, depressive typ e F25.1 [facility] [place] [address] [address] Dec, Schizoaffective disorder, depressive typ e F25.1 [facility] [place] [address] [address] Dec, Schizoaffective disorder, depressive typ e F25.1 [facility] [place] [address] [address] November, Schizoaffective disorder, depressive typ e F25.1 [facility] [place] [address] [address] November, Schizoaffective disorder, depressive typ e F25.1 [facility] [place] [address] [address] November, Schizoaffective disorder, depressive typ e F25.1 [facility] [place] [address] [address] Oct, Schizoaffective disorder, depressive typ e F25.1 [facility] [place] [address] [address] Oct, Schizoaffective disorder, depressive typ e F25.1 [facility] [place] [address] [address] Sep, Schizoaffective disorder, depressive typ e F25.1 [facility] [place] [address] [address] Sep, Schizoaffective disorder, depressive typ e F25.1 [facility] [address] [id number] [place] [address] Sep, Oral health maintenance status requiring routine preventive dental care K08.9 ; Dental examination Z01.20 and Caries K02.9 [facility], [place] [address] [address] Aug, Schizoaffective disorder, depressive typ e F25.1 [facility] [place] [address] [address] Jul, Schizoaffective disorder, depressive typ e F25.1 [facility] [place] [address] [address] Jul, Schizoaffective disorder, depressive typ e F25.1 [facility] [place] [address] [address] Jul, Schizoaffective disorder, depressive typ e F25.1 [facility] [place] [address] [address] Jun, Schizoaffective disorder, depressive typ e F25.1 [facility] [place] [address] [address] Jun, Schizoaffective disorder, depressive typ e F25.1 [facility] [address] [id number] May, Encounter for prophylactic fluoride admi nistration Z29.3 [facility], [place] [address] [address] Apr, Schizoaffective disorder, depressive typ e F25.1 [facility] [place] [address] [address] Apr, Schizoaffective disorder, depressive typ e F25.1 [facility] [place] [address] [address] Apr, [facility] [place] [address] [address] Apr, Schizoaffective disorder, depressive typ e F25.1 and Bipolar affective disorder, current episode hypomanic F31.0 [facility], [place] [address] [address] 05 Mar, 2018 Schizoaffective disorder, depressive typ e F25.1 and Bipolar affective disorder, current episode hypomanic F31.0 [facility] [place] [address] [address] 15 Feb, 2018 Schizoaffective disorder, depressive typ e F25.1 [facility] [place] [address] [address] Feb, Schizoaffective disorder, depressive typ e F25.1 [facility] [place] [address] [address] 08 Feb, 2018 Schizoaffective disorder, depressive typ e F25.1 and BMI 40.0-44.9, adult Z68.41 [facility] [address] [id number] Feb, Dental examination Z01.20 [facility], [place] [address] [address] Jan, [facility] [place] [address] [address] Jan, Schizoaffective disorder, depressive typ e F25.1 and BMI 40.0-44.9, adult Z68.41 [address] [address] Dec, Schizoaffective disorder, depressive typ e F25.1 [facility], [place] [address] [address] November, Schizoaffective disorder, depressive typ e F25.1 and BMI 40.0-44.9, adult Z68.41 [facility] [place] [address] [address] Oct, Schizoaffective disorder, depressive typ e F25.1 [facility] [address] [id number] Oct, Dental examination Z01.20 [facility] [place] [address] [address] Sep, Schizoaffective disorder, depressive typ e F25.1 [facility], [place] [address] [address] Aug, Schizoaffective disorder, depressive typ e F25.1 and BMI 40.0-44.9, adult Z68.41 [facility] [place] [address] [address] Jul, Schizoaffective disorder, depressive typ e F25.1 [facility], [place] [address] [address] Jul, Schizoaffective disorder, depressive typ e F25.1 [facility] [place] [address] [address] Jul, Schizoaffective disorder, depressive typ e F25.1 [facility] [address] [id number] Jul, Dental examination Z01.20 [facility] [address] [id number] Jul, Dental examination Z01.20 [facility] [place] [address] [address] Jun, Schizoaffective disorder, depressive typ e F25.1 [facility], [place] [address] [address] May, Schizoaffective disorder, depressive typ e F25.1 and BMI 40.0-44.9, adult Z68.41 [facility] [place] [address] [address] Apr, Schizoaffective disorder, depressive typ e F25.1 [facility] [place] [address] [address] Mar, Schizoaffective disorder, depressive typ e F25.1 [facility] [address] [id number] Mar, Dental examination Z01.[address] [facility] [address] [id number] [facility] [id number] Feb, Dental examination Z01.20 [facility], [place] [id number] [place] [address] Feb, Schizoaffective disorder, depressive typ e F25.1 [facility] [place] [address] [address] Feb, Schizoaffective disorder, depressive typ e F25.1 [facility], [place] [address] [address] Feb, [facility] [place] [address] [address] Feb, Schizoaffective disorder, depressive typ e F25.1 [facility], [place] [address] [address] Jan, Schizoaffective disorder, depressive typ e F25.1 [facility], [place] [address] [address] Jan, Well woman exam with routine gynecologic al exam Z01.419 [facility], [place] [address] [address] Jan, Schizoaffective disorder, depressive typ e F25.1 [facility] [address] [facility] [place] [id number] Dec, Encounter for dental examination and macho aning without abnormal findings Z01.20 [facility] [address] [id number] [place] [id number] Dec, Dental examination Z01.20 [facility], [place] [address] [address] Dec, Schizoaffective disorder, depressive typ e F25.1 [facility] [place] [address] [address] Oct, Schizoaffective disorder, depressive typ e F25.1 [facility] [place] [address] [address] Oct, Schizoaffective disorder, depressive typ e F25.1 [facility] [address] [id number] Sep, Dental examination Z01.20 [facility] [place] [address] [address] 08 Aug, 2016 Schizoaffective disorder, depressive typ e F25.1 [facility] [place] [address] [address] Jul, Schizoaffective disorder, depressive typ e F25.1 [facility] [address] [id number] Jun, Encounter for dental examination and macho aning without abnormal findings Z01.20 [facility] [address] [facility] [id number] Jun, Dental examination Z01.20 [facility] [place] [address] [address] Mar, Dental examination Z01.20 [facility] [address] [id number] Feb, Encounter for dental examination and macho aning without abnormal findings Z01.20 [facility] [address] [facility] [id number] November, Encounter for dental examination Z01.20 [facility] [address] [facility] [address] [id number] [id number] Oct, Dental examination Z01.20 [facility] [address] [id number] Oct, Encounter for dental examination and macho aning without abnormal findings Z01.20 [facility] [address] [id number] Jul, Dental examination Z01.20 [facility] [address] [id number] May, Encounter for dental examination Z01.20 [facility] [address] [facility] [id number] [place] [id number] Jan, Dental examination V72.2 IMMUNIZATIONS No Known Immunizations SOCIAL HISTORY Never Assessed REASON FOR VISIT PLAN OF CARE VITAL SIGNS MEDICATIONS Medication Instructions Dosage Frequency Start Date End Date Duration S tatus Vol-Plus 27-1 MG Orally Once a day 1 tablet 24h Jan, 30 day(s) Active RESULTS No Results PROCEDURES No Known procedures INSTRUCTIONS MEDICATIONS ADMINISTERED No Known Medications MEDICAL (GENERAL) HISTORY Type Description Date Medical History Schizoaffective disorder, depressive typ e Medical History Bipolar affective disorder, current epis ode hypomanic Surgical History No Surgical history information
--- OUTSIDE RECORDS SUMMARY | 2019-09-20 23:27 | XMS REPORT ---
Author Author Afshan OLIVO Organization [facility] [address] Address [address] [place] [address] Care Team Providers Care Getterer Name Role Phone MICHELLE OLIVO Unavailable PROBLEMS Type Condition ICD9-CM Code NCU09-PB Code Onset Dates Condition S tatus SNOMED Code Problem Bipolar affective disorder, current episode hypomanic F31.0 Active [id number] Problem Schizoaffective disorder, depressive type F25.1 Active [id number] ALLERGIES No Information ENCOUNTERS Encounter Location Date Diagnosis [place] [id number] [facility] [id number] [address] [place] [address] Jul, [facility] [address] [id number] [address] [place] [address] Apr, [facility] [address] [id number] [address] [place] [address] Apr, Schizoaffective disorder, de pressive type F25.1 [facility] [address] [id number] [address] [place] [address] Apr, [facility] [address] [facility] [id number] [address] [place] [address] Apr, Schizoaffective disorder, de pressive type F25.1 and Bipolar affective disorder, current episode hypomanic F31.0 [facility] [address] [id number] [address] [place] [address] Mar, Schizoaffective disorder, de pressive type F25.1 and Bipolar affective disorder, current episode hypomanic F31.0 [facility] [address] [id number] [address] [place] [address] Feb, Schizoaffective disorder, de pressive type F25.1 [facility] [address] [id number] [address] [place] [address] Feb, Schizoaffective disorder, de pressive type F25.1 [facility] [address] [id number] [address] [place] [address] Feb, Schizoaffective disorder, de pressive type F25.1 and BMI 40.0-44.9, adult Z68.41 [facility] [address] [id number] [address] [place] [id number] Feb, Dental examination Z01.20 [facility] [address] [id number] [address] [place] [address] Jan, [facility] [address] [id number] [address] [place] [phone] Jan, Schizoaffective disorder, de pressive type F25.1 and BMI 40.0-44.9, adult Z68.41 [facility] [address] [id number] [address] [place] [address] Dec, Schizoaffective disorder, de pressive type F25.1 [facility] [address] [id number] [address] [place] [address] November, Schizoaffective disorder, de pressive type F25.1 and BMI 40.0-44.9, adult Z68.41 [facility] [address] [id number] [address] [place] [address] Oct, Schizoaffective disorder, de pressive type F25.1 [facility] [address] [id number] [address] [place] [id number] Oct, Dental examination Z01.20 [facility] [address] [id number] [address] [place] [address] Sep, Schizoaffective disorder, de pressive type F25.1 [facility] [address] [id number] [address] [place] [address] Aug, Schizoaffective disorder, de pressive type F25.1 and BMI 40.0-44.9, adult Z68.41 [facility] [address] [facility] [id number] [address] [place] [address] Jul, Schizoaffective disorder, de pressive type F25.1 [facility] [address] [facility] [id number] [address] [place] [address] Jul, Schizoaffective disorder, de pressive type F25.1 [facility] [address] [id number] [address] [place] [id number] Jul, Schizoaffective disorder, de pressive type F25.1 [facility] [address] [id number] [address] [place] [id number] Jul, Dental examination Z01.20 [facility] [address] [id number] [address] [place] [id number] Jul, Dental examination Z01.20 [facility] [address] [facility] [id number] [address] [place] [address] Jun, Schizoaffective disorder, de pressive type F25.1 [facility] [address] [facility] [id number] [address] [place] [address] May, Schizoaffective disorder, de pressive type F25.1 and BMI 40.0-44.9, adult Z68.41 [facility] [address] [facility] [id number] [address] [place] [id number] Apr, Schizoaffective disorder, de pressive type F25.1 [facility] [address] [facility] [id number] [address] [place] [address] Mar, Schizoaffective disorder, de pressive type F25.1 [facility] [address] [id number] [address] [place] [id number] Mar, Dental examination Z01.20 [place] [id number] [facility] [id number] [id number] Feb, Dental examination Z01.20 [facility] [address] [facility] [id number] [address] [place] [address] Feb, Schizoaffective disorder, de pressive type F25.1 [facility] [address] [facility] [id number] [address] [place] [phone] Feb, Schizoaffective disorder, de pressive type F25.1 [facility] [address] [facility] [id number] [address] [place] [address] Feb, [facility] [address] [facility] [id number] [address] [place] [phone] Feb, Schizoaffective disorder, de pressive type F25.1 [facility] [address] [facility] [id number] [address] [place] [phone] Jan, Schizoaffective disorder, de pressive type F25.1 [facility] [address] [facility] [id number] [address] [place] [phone] Jan, Well woman exam with routine gynecological exam Z01.419 [facility] [address] [facility] [id number] [address] [place] [phone] Jan, Schizoaffective disorder, de pressive type F25.1 [facility] [address] [id number] [address] [place] [phone] Dec, Encounter for dental examina tion and cleaning without abnormal findings Z01.20 [facility] [address] [id number] [id number] Dec, Dental examination Z01.20 [facility] [address] [facility] [id number] [address] [place] [phone] Dec, Schizoaffective disorder, de pressive type F25.1 [facility] [address] [facility] [id number] [address] [place] [phone] Oct, Schizoaffective disorder, de pressive type F25.1 [facility] [address] [id number] [address] [place] [phone] Oct, Schizoaffective disorder, de pressive type F25.1 [facility] [address] [id number] [address] [place] [id number] Sep, Dental examination Z01.20 [facility] [address] [id number] [address] [place] [phone] Aug, Schizoaffective disorder, de pressive type F25.1 [facility] [address] [id number] [address] [place] [phone] Jul, Schizoaffective disorder, de pressive type F25.1 [facility] [address] [id number] [address] [place] [id number] Jun, Encounter for dental examina tion and cleaning without abnormal findings Z01.20 [facility] [address] [id number] [id number] Jun, Dental examination Z01.20 [facility] [address] [id number] [address] [place] [phone] Mar, Dental examination Z01.20 [facility] [address] [id number] [address] [place] [id number] Feb, Encounter for dental examina tion and cleaning without abnormal findings Z01.20 [facility] [address] [id number] [id number] November, Encounter for dental examination Z01.20 [facility] [address] [id number] [id number] Oct, Dental examination Z01.20 [facility] [address] [id number] [address] [place] [phone] Oct, Encounter for dental examina tion and cleaning without abnormal findings Z01.20 [facility] [address] [id number] [address] [place] [id number] Jul, Dental examination Z01.20 [facility] [address] [id number] [address] [id number] May, Encounter for dental examina tion Z01.20 [facility] [address] [id number] [address] [id number] Jan, Dental examination V72.2 IMMUNIZATIONS No Known [...]
--- OUTSIDE RECORDS SUMMARY | 2019-09-20 23:27 | XMS REPORT ---
Author Author Afshan BASS [facility] Address [address] [place] [address] Care Team Providers Care Blow Molding Machine Operator Name Role Phone JOHN BASS Unavailable PROBLEMS Type Condition ICD9-CM Code CPO73-IT Code Onset Dates Condition S tatus SNOMED Code Problem Bipolar affective disorder, current episode hypomanic F31.0 Active 62664973 Problem Schizoaffective disorder, depressive type F25.1 Active [id number] ALLERGIES No Information ENCOUNTERS Encounter Location Date Diagnosis [facility] [address] [facility] [id number] [address] [place] [phone] Jul, [facility] [address] [facility] [id number] [address] [place] [phone] Jul, [facility] [address] [id number] [address] [place] [address] [phone] May, [facility] [address] [facility] [id number] [address] [place] [phone] Apr, Schizoaffective disorder, de pressive type F25.1 [facility] [address] [facility] [id number] [address] [place] [phone] Apr, Schizoaffective disorder, de pressive type F25.1 [facility] [address] [facility] [id number] [address] [place] [phone] Apr, [facility] [address] [facility] [id number] [address] [place] [phone] Apr, Schizoaffective disorder, de pressive type F25.1 and Bipolar affective disorder, current episode hypomanic F31.0 [facility] [address] [facility] [id number] [address] [place] [phone] Mar, Schizoaffective disorder, de pressive type F25.1 and Bipolar affective disorder, current episode hypomanic F31.0 [facility] [address] [id number] [address] [place] [phone] Feb, Schizoaffective disorder, de pressive type F25.1 [facility] [address] [id number] [address] [place] [phone] Feb, Schizoaffective disorder, de pressive type F25.1 [facility] [address] [id number] [address] [place] [phone] Feb, Schizoaffective disorder, de pressive type F25.1 and BMI 40.0-44.9, adult Z68.41 [facility] [address] [id number] [address] [place] [address] [phone] Feb, Dental examination Z01.20 [facility] [address] [id number] [address] [place] [phone] Jan, [facility] [address] [id number] [address] [place] [phone] Jan, Schizoaffective disorder, de pressive type F25.1 and BMI 40.0-44.9, adult Z68.41 [facility] [address] [id number] [address] [place] [phone] Dec, Schizoaffective disorder, de pressive type F25.1 [facility] [address] [id number] [address] [place] [phone] November, Schizoaffective disorder, de pressive type F25.1 and BMI 40.0-44.9, adult Z68.41 [facility] [address] [id number] [address] [place] [phone] Oct, Schizoaffective disorder, de pressive type F25.1 [facility] [address] [id number] [address] [place] [address] [id number] Oct, Dental examination Z01.20 [facility] [address] [id number] [address] [place] [phone] Sep, Schizoaffective disorder, de pressive type F25.1 [facility] [address] [id number] [address] [place] [phone] Aug, Schizoaffective disorder, de pressive type F25.1 and BMI 40.0-44.9, adult Z68.41 [facility] [address] [id number] [address] [place] [phone] Jul, Schizoaffective disorder, de pressive type F25.1 [facility] [address] [id number] [address] [place] [phone] Jul, Schizoaffective disorder, de pressive type F25.1 [facility] [address] [id number] [address] [place] [phone] Jul, Schizoaffective disorder, de pressive type F25.1 [facility] [address] [id number] [address] [place] [address] [phone] Jul, Dental examination Z01.20 [facility] [address] [id number] [address] [place] [address] [phone] Jul, Dental examination Z01.20 [facility] [address] [id number] [address] [place] [phone] Jun, Schizoaffective disorder, de pressive type F25.1 [facility] [address] [id number] [address] [place] [phone] May, Schizoaffective disorder, de pressive type F25.1 and BMI 40.0-44.9, adult Z68.41 [facility] [address] [id number] [address] [place] [id number] Apr, Schizoaffective disorder, de pressive type F25.1 [facility] [address] [id number] [address] [place] [phone] Mar, Schizoaffective disorder, de pressive type F25.1 [facility] [address] [id number] [address] [place] [address] [phone] Mar, 2017 Dental examination Z01.[address] [facility] [address] [id number] [id number] Feb, Dental examination Z01.20 [facility] [address] [facility] [id number] [address] [place] [phone] Feb, Schizoaffective disorder, de pressive type F25.1 [facility] [address] [id number] [address] [place] [phone] Feb, Schizoaffective disorder, de pressive type F25.1 [facility] [address] [facility] [id number] [address] [place] [phone] Feb, [facility] [address] [facility] [id number] [address] [place] [phone] Feb, Schizoaffective disorder, de pressive type F25.1 [facility] [address] [facility] [id number] [address] [place] [phone] Jan, Schizoaffective disorder, de pressive type F25.1 [facility] [address] [facility] [id number] [address] [place] [phone] Jan, Well woman exam with routine gynecological exam Z01.419 [facility] [address] [facility] [id number] [address] [place] [phone] Jan, Schizoaffective disorder, de pressive type F25.1 [facility] [address] [id number] [address] [place] [address] [phone] Dec, Encounter for dental examina tion and cleaning without abnormal findings Z01.20 [facility] [address] [id number] [id number] Dec, Dental examination Z01.20 [facility] [address] [id number] [address] [place] [phone] Dec, Schizoaffective disorder, de pressive type F25.1 [facility] [address] [id number] [address] [place] [phone] Oct, Schizoaffective disorder, de pressive type F25.1 [facility] [address] [id number] [address] [place] [phone] Oct, Schizoaffective disorder, de pressive type F25.1 [facility] [address] [id number] [address] [place] [address] [phone] Sep, Dental examination Z01.20 [facility] [address] [id number] [address] [place] [phone] Aug, Schizoaffective disorder, de pressive type F25.1 [facility] [address] [id number] [address] [place] [phone] Jul, Schizoaffective disorder, de pressive type F25.1 [facility] [address] [id number] [address] [place] [address] [phone] Jun, Encounter for dental examina tion and cleaning without abnormal findings Z01.20 [facility] [address] [id number] [place] [phone] Jun, Dental examination Z01.20 [facility] [address] [id number] [address] [place] [phone] Mar, Dental examination Z01.20 [facility] [address] [id number] [address] [place] [address] [phone] Feb, Encounter for dental examina tion and cleaning without abnormal findings Z01.20 [facility] [address] [id number] [place] [phone] November, [facility]counter [facility] examination [facility]01.20 [facility] [address] [id number] [place] [phone] Oct, Dental examination Z01.20 [facility] [address] [id number] [place] [phone] Oct, Encounter for dental examina tion and cleaning without abnormal findings Z01.20 [facility] [address] [id number] [address] [place] [address] [phone] Jul, Dental examination Z01.20 [facility] [address] [id number] [address] [place] [address] [phone] May, Encounter for dental examina tion Z01.20 [facility] [address] [id number] [address] [place] [address] [phone] Jan, Dental examination V72.2 IMMUNIZATIONS No Known Immunizations SOCIAL HISTORY Never Assessed REASON FOR VISIT f/u PLAN OF CARE Activity Details Follow Up 4 Months, prn, 4 Weeks Reaso n: VITAL SIGNS MEDICATIONS Unknown Medications RESULTS No Results PROCEDURES Procedure Date Ordered Result Body Site [facility] VISIT MENTAL HEALTH ESTAB PT Apr 30, 2018 Psychotherapy, patient &/family, 30 minutes, established patient Apr 30, 2018 INSTRUCTIONS MEDICATIONS ADMINISTERED No Known Medications
--- OUTSIDE RECORDS SUMMARY | 2019-09-20 23:27 | XMS REPORT ---
Author Author Afshan OLIVO Organization [facility] [address] Address [address] [place] [address] Care Team Providers Care Auto Body Mechanic Name Role Phone MICHELLE OLIVO Unavailable PROBLEMS Type Condition ICD9-CM Code ATZ83-TG Code Onset Dates Condition S tatus SNOMED Code Problem Bipolar affective disorder, current episode hypomanic F31.0 Active [id number] Problem Schizoaffective disorder, depressive type F25.1 Active 97515321 ALLERGIES No Information ENCOUNTERS Encounter Location Date Diagnosis [place] [address] [facility] [id number] [address] [place] [phone] Jul, [facility] [address] [id number] [address] [place] [phone] Apr, [facility] [address] [id number] [address] [place] [phone] Apr, Schizoaffective disorder, de pressive type F25.1 [facility] [address] [id number] [address] [place] [phone] Apr, [facility] [address] [facility] [id number] [address] [place] [phone] Apr, Schizoaffective disorder, de pressive type F25.1 and Bipolar affective disorder, current episode hypomanic F31.0 [facility] [address] [id number] [address] [place] [phone] Mar, Schizoaffective disorder, de pressive type F25.1 and Bipolar affective disorder, current episode hypomanic F31.0 [facility] [address] [id number] [address] [place] [phone] Feb, Schizoaffective disorder, de pressive type F25.1 [facility] [address] [id number] [address] [place] [phone] Feb, Schizoaffective disorder, de pressive type F25.1 [facility] [address] [id number] [address] [place] [phone] Feb, Schizoaffective disorder, de pressive type F25.1 and BMI 40.0-44.9, adult Z68.41 [facility] [address] [id number] [address] [place] [address] [id number] Feb, Dental examination Z01.20 [facility] [address] [id number] [address] [place] [phone] Jan, [facility] [address] [id number] [address] [place] [phone] Jan, Schizoaffective disorder, de pressive type F25.1 and BMI 40.0-44.9, adult Z68.41 [facility] [address] [id number] [address] [place] [phone] Dec, Schizoaffective disorder, de pressive type F25.1 [facility] [address] [id number] [address] [place] [phone] November, Schizoaffective disorder, de pressive type F25.1 and BMI 40.0-44.9, adult Z68.41 [facility] [address] [id number] [address] [place] [phone] Oct, Schizoaffective disorder, de pressive type F25.1 [facility] [address] [id number] [address] [place] [address] [phone] Oct, Dental examination Z01.20 [facility] [address] [id number] [address] [place] [phone] Sep, Schizoaffective disorder, de pressive type F25.1 [facility] [address] [id number] [address] [place] [phone] Aug, Schizoaffective disorder, de pressive type F25.1 and BMI 40.0-44.9, adult Z68.41 [facility] [address] [facility] [id number] [address] [place] [phone] Jul, Schizoaffective disorder, de pressive type F25.1 [facility] [address] [facility] [id number] [address] [place] [phone] Jul, Schizoaffective disorder, de pressive type F25.1 [facility] [address] [id number] [address] [place] [phone] Jul, Schizoaffective disorder, de pressive type F25.1 [facility] [address] [id number] [address] [place] [address] [phone] Jul, Dental examination Z01.20 [facility] [address] [id number] [address] [place] [address] [id number] Jul, Dental examination Z01.20 [facility] [address] [facility] [id number] [address] [place] [phone] Jun, Schizoaffective disorder, de pressive type F25.1 [facility] [address] [facility] [id number] [address] [place] [phone] May, Schizoaffective disorder, de pressive type F25.1 and BMI 40.0-44.9, adult Z68.41 [facility] [address] [facility] [id number] [address] [place] [phone] Apr, Schizoaffective disorder, de pressive type F25.1 [facility] [address] [facility] [id number] [address] [place] [phone] Mar, Schizoaffective disorder, de pressive type F25.1 [facility] [address] [id number] [address] [place] [address] [id number] Mar, Dental examination Z01.20 [place] [id number] [facility] [address] [id number] [place] [id number] Feb, Dental examination Z01.20 [facility] [address] [facility] [id number] [address] [place] [phone] Feb, Schizoaffective disorder, de pressive type F25.1 [facility] [address] [facility] [id number] [address] [place] [phone] Feb, Schizoaffective disorder, de pressive type F25.1 [facility] [address] [facility] [id number] [address] [place] [phone] Feb, [facility] [address] [facility] [id number] [address] [place] [phone] Feb, Schizoaffective disorder, de pressive type F25.1 [facility] [address] [facility] [id number] [address] [place] [phone] Jan, Schizoaffective disorder, de pressive type F25.1 [facility] [address] [facility] [id number] [address] [place] [phone] Jan, Well woman exam with routine gynecological exam Z01.419 [facility] [address] [facility] [id number] [address] [place] [phone] Jan, Schizoaffective disorder, de pressive type F25.1 [place] [address] [facility] [address] [id number] [place] [id number] Dec, Dental examination Z01.20 [facility] [address] [facility] [id number] [address] [place] [address] [id number] Dec, Encounter for dental examina tion and cleaning without abnormal findings Z01.20 [facility] [address] [facility] [id number] [address] [place] [phone] Dec, Schizoaffective disorder, de pressive type F25.1 [facility] [address] [facility] [id number] [address] [place] [phone] Oct, Schizoaffective disorder, de pressive type F25.1 [facility] [address] [id number] [address] [place] [phone] Oct, Schizoaffective disorder, de pressive type F25.1 [facility] [address] [id number] [address] [place] [address] [id number] Sep, Dental examination Z01.20 [facility] [address] [id number] [address] [place] [phone] Aug, Schizoaffective disorder, de pressive type F25.1 [facility] [address] [id number] [address] [place] [phone] Jul, Schizoaffective disorder, de pressive type F25.1 [facility] [address] [id number] [place] [id number] Jun, Dental examination Z01.20 [facility] [address] [id number] [address] [place] [address] [phone] Jun, Encounter for dental examina tion and cleaning without abnormal findings Z01.20 [facility] [address] [id number] [address] [place] [phone] Mar, Dental examination Z01.20 [facility] [address] [id number] [address] [place] [address] [id number] Feb, Encounter for dental examina tion and cleaning without abnormal findings Z01.20 [facility] [address] [id number] [place] [id number] November, Encounter for dental examination Z01.20 [facility] [address] [id number] [place] [id number] Oct, Dental examination Z01.20 [facility] [address] [id number] [address] [place] [address] [phone] Oct, Encounter for dental examina tion and cleaning without abnormal findings Z01.20 [facility] [address] [id number] [address] [place] [address] [id number] Jul, Dental examination Z01.20 [facility] [address] [id number] [place] [phone] May, Encounter for dental examina tion Z01.20 [facility] [address] [id number] [address] [id number] Jan, Dental examination V72.2 IMMUNIZATIONS No Known Immunizations SOCIAL HISTORY Never Assessed REASON FOR VISIT Medication question PLAN OF CARE VITAL SIGNS MEDICATIONS Unknown Medications RESULTS No Results PROCEDURES No Known procedures INSTRUCTIONS MEDICATIONS ADMINISTERED No Known Medications
--- OUTSIDE RECORDS SUMMARY | 2019-09-20 23:27 | XMS REPORT ---
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 Name Role Phone JOHN BASS Unavailable PROBLEMS Type Condition ICD9-CM Code MIS39-GP Code Onset Dates Condition S tatus SNOMED Code Problem Schizoaffective disorder, depressive type F25.1 Active [id number] Problem Bipolar affective disorder, current episode hypomanic F31.0 Active 25709299 ALLERGIES No Information ENCOUNTERS Encounter Location Date Diagnosis [place] [address] [address] Sep, [address] [address] Sep, OUTREACH [place] [address] [id number] [place] [address] Aug, [address] [address] Aug, Schizoaffective disorder, depressive typ e F25.1 [place] [address] [address] Aug, Schizoaffective disorder, depressive typ e F25.1 [facility] [address] [address] Aug, [facility] [address] [address] Jul, Schizoaffective disorder, depressive typ e F25.1 [place] [address] [address] Jul, Schizoaffective disorder, depressive typ e F25.1 [place] [address] [place] [id number] [place] [address] Jul, Schizoaffective disorder, depressive typ e F25.1 [facility] [address] [id number] Jun, Caries K02.9 [facility] [address] [address] Jun, Schizoaffective disorder, depressive typ e F25.1 [place] [address] [place] [address] [facility] [place] [address] Jun, [facility] [place] [address] [facility] [place] [address] Jun, Schizoaffective disorder, depressive type F25.1 [facility] [address] [address] Jun, Schizoaffective disorder, depressive typ e F25.1 [facility] [address] [id number] May, Dental examination Z01.20 and Caries K02 .9 OUTREACH [facility] [address] [place] [address] [id number] [address] May, Dental examination Z01.20 ; Oral health maintenance status requiring routine preventive dental care K08.9 and Caries K02.9 [facility] [address] [address] May, Schizoaffective disorder, depressive typ e F25.1 [facility] [address] [address] May, Schizoaffective disorder, depressive typ e F25.1 [facility] [address] [address] May, Schizoaffective disorder, depressive typ e F25.1 [facility] [address] [address] Apr, Schizoaffective disorder, depressive typ e F25.1 [facility] [address] [place] [address] [id number] [place] [address] Apr, Schizoaffective disorder, depressive typ e F25.1 [facility] [address] [place] [address] [id number] [place] [address] Mar, Schizoaffective disorder, depressive typ e F25.1 OUTREACH [facility] [address] [id number] [address] Jan, Oral health maintenance stat us requiring routine preventive dental care K08.9 [facility] [address] [address] Jan, Schizoaffective disorder, depressive typ e F25.1 [facility] [address] [address] Jan, Schizoaffective disorder, depressive typ e F25.1 [facility] [address] [address] Jan, Schizoaffective disorder, depressive typ e F25.1 [facility] [address] [address] Dec, Schizoaffective disorder, depressive typ e F25.1 [facility] [address] [address] Dec, Schizoaffective disorder, depressive typ e F25.1 [facility] [address] [address] November, Schizoaffective disorder, depressive typ e F25.1 [facility] [address] [place] [id number] [place] [address] November, Schizoaffective disorder, depressive typ e F25.1 [facility] [address] [address] November, Schizoaffective disorder, depressive typ e F25.1 [facility] [address] [address] Oct, Schizoaffective disorder, depressive typ e F25.1 [facility] [address] [address] Oct, Schizoaffective disorder, depressive typ e F25.1 [facility] [address] [address] Sep, Schizoaffective disorder, depressive typ e F25.1 [facility] [address] [address] Sep, Schizoaffective disorder, depressive typ e F25.1 [place] [address] [place] [id number] [address] Sep, Oral health maintenance status requiring routine preventive dental care K08.9 ; Dental examination Z01.20 and Caries K02.9 [place] [address] [address] Aug, Schizoaffective disorder, depressive typ e F25.1 [facility] [address] [address] Jul, Schizoaffective disorder, depressive typ e F25.1 [facility] [address] [address] Jul, Schizoaffective disorder, depressive typ e F25.1 [place] [address] [address] Jul, Schizoaffective disorder, depressive typ e F25.1 [facility] [address] [address] Jun, Schizoaffective disorder, depressive typ e F25.1 [facility] [address] [address] Jun, Schizoaffective disorder, depressive typ e F25.1 [facility] [address] [facility] [place] [id number] May, Encounter for prophylactic fluoride admi nistration Z29.3 [facility] [address] [address] Apr, Schizoaffective disorder, depressive typ e F25.1 [facility] [address] [address] Apr, Schizoaffective disorder, depressive typ e F25.1 [facility] [address] [address] Apr, [facility] [address] [address] Apr, Schizoaffective disorder, depressive typ e F25.1 and Bipolar affective disorder, current episode hypomanic F31.0 [facility] [address] [address] Mar, Schizoaffective disorder, depressive typ e F25.1 and Bipolar affective disorder, current episode hypomanic F31.0 [facility] [address] [address] Feb, Schizoaffective disorder, depressive typ e F25.1 [facility] [address] [address] Feb, Schizoaffective disorder, depressive typ e F25.1 [facility] [address] [address] Feb, Schizoaffective disorder, depressive typ e F25.1 and BMI 40.0-44.9, adult Z68.41 [facility] [address] [place] [id number] [place] [id number] Feb, Dental examination Z01.20 [facility] [address] [address] Jan, [facility] [address] [address] Jan, Schizoaffective disorder, depressive typ e F25.1 and BMI 40.0-44.9, adult Z68.41 [facility] [address] [address] Dec, Schizoaffective disorder, depressive typ e F25.1 [place] [address] [address] November, Schizoaffective disorder, depressive typ e F25.1 and BMI 40.0-44.9, adult Z68.41 [place] [address] [address] Oct, Schizoaffective disorder, depressive typ e F25.1 [facility] [address] [id number] Oct, Dental examination Z01.20 [place] [address] [address] Sep, Schizoaffective disorder, depressive typ e F25.1 [place] [address] [address] Aug, Schizoaffective disorder, depressive typ e F25.1 and BMI 40.0-44.9, adult Z68.41 [place] [address] [address] Jul, Schizoaffective disorder, depressive typ e F25.1 [place] [address] [address] Jul, Schizoaffective disorder, depressive typ e F25.1 [facility] [address] [address] Jul, Schizoaffective disorder, depressive typ e F25.1 [facility] [address] [id number] Jul, Dental examination Z01.20 [facility] [address] [id number] Jul, Dental examination Z01.20 [facility] [address] [address] Jun, Schizoaffective disorder, depressive typ e F25.1 [facility] [address] [address] May, Schizoaffective disorder, depressive typ e F25.1 and BMI 40.0-44.9, adult Z68.41 [facility] [address] [address] Apr, Schizoaffective disorder, depressive typ e F25.1 [facility] [address] [address] Mar, Schizoaffective disorder, depressive typ e F25.1 [facility] [address] [facility] [place] [address] Mar, Dental examination Z01.20 [facility] [address] [facility] [id number] Feb, Dental examination Z01.20 [place] [address] [address] Feb, Schizoaffective disorder, depressive typ e F25.1 [place] [address] [address] Feb, Schizoaffective disorder, depressive typ e F25.1 [place] [address] [address] Feb, [facility] [address] [address] Feb, Schizoaffective disorder, depressive typ e F25.1 [facility] [address] [address] Jan, Schizoaffective disorder, depressive typ e F25.1 [facility] [address] [address] Jan, Well woman exam with routine gynecologic al exam Z01.419 [facility] [address] [address] Jan, Schizoaffective disorder, depressive typ e F25.1 [facility] [address] [id number] Dec, Encounter for dental examination and macho aning without abnormal findings Z01.20 [facility] [address] [id number] [id number] Dec, Dental examination Z01.20 [facility] [address] [address] Dec, Schizoaffective disorder, depressive typ e F25.1 [facility] [address] [address] Oct, Schizoaffective disorder, depressive typ e F25.1 [facility] [address] [address] Oct, Schizoaffective disorder, depressive typ e F25.1 [facility] [address] [id number] Sep, Dental examination Z01.20 [facility] [address] [address] Aug, Schizoaffective disorder, depressive typ e F25.1 [facility] [address] [address] Jul, Schizoaffective disorder, depressive typ e F25.1 [facility] [address] [id number] Jun, Encounter for dental examination and macho aning without abnormal findings Z01.20 [facility] [address] [id number] [id number] Jun, Dental examination Z01.20 [facility] [address] [address] Mar, Dental examination Z01.20 [facility] [address] [id number] Feb, Encounter for dental examination and macho aning without abnormal findings Z01.20 [facility] [address] [id number] [place] [id number] November, Encounter for dental examination Z01.20 [facility] [address] [id number] [place] [id number] Oct, Dental examination Z01.20 [facility] [address] [place] [id number] [place] [id number] Oct, Encounter for dental examination and macho aning without abnormal findings Z01.20 [facility] [address] [id number] Jul, Dental examination Z01.20 [facility] [address] [id number] May, Encounter for dental examination Z01.20 [facility] [address] [place] [id number] [place] [id number] Jan, Dental examination V72.2 IMMUNIZATIONS No Known Immunizations SOCIAL HISTORY Never Assessed REASON FOR VISIT f/u PLAN OF CARE Activity Details Follow Up 6 Weeks Reason: VITAL SIGNS MEDICATIONS Unknown Medications RESULTS No Results PROCEDURES Procedure Date Ordered Result Body Site Psychotherapy, patient &/family, 30 minutes, established pat ient September 29, 2018 [facility] VISIT MENTAL HEALTH ESTAB PT September 29, 2018 INSTRUCTIONS MEDICATIONS ADMINISTERED No Known Medications MEDICAL (GENERAL) HISTORY Type Description Date Medical History Schizoaffective disorder, depressive typ e Medical History Bipolar affective disorder, current epis ode hypomanic Surgical History No Surgical history information
--- OUTSIDE RECORDS SUMMARY | 2019-09-20 23:27 | XMS REPORT ---
Author Author Afshan OLIVO Organization [facility] [address] [place] Address [address] [place] [address] Care Team Providers Care Bender Machine Name Role Phone MICHELLE OLIVO Unavailable PROBLEMS Type Condition ICD9-CM Code HKX96-SB Code Onset Dates Condition S tatus SNOMED Code Problem Bipolar affective disorder, current episode hypomanic F31.0 Active 89078984 Problem Schizoaffective disorder, depressive type F25.1 Active 75701100 ALLERGIES No Information ENCOUNTERS Encounter Location Date Diagnosis [place] [address] [facility] [id number] [address] [place] [address] Jul, [facility] [address] [id number] [address] [place] [address] Apr, [facility] [address] [id number] [address] [place] [address] Apr, Schizoaffective disorder, de pressive type F25.1 [facility] [address] [id number] [address] [place] [address] Apr, [facility] [address] [facility] [id number] [address] [place] [address] Apr, Schizoaffective disorder, de pressive type F25.1 and Bipolar affective disorder, current episode hypomanic F31.0 [facility] [address] [id number] [address] [place] [address] Mar, Schizoaffective disorder, de pressive type F25.1 and Bipolar affective disorder, current episode hypomanic F31.0 [facility] [address] [id number] [address] [place] [address] Feb, Schizoaffective disorder, de pressive type F25.1 [facility] [address] [id number] [address] [place] [address] Feb, Schizoaffective disorder, de pressive type F25.1 [facility] [address] [id number] [address] [place] [address] Feb, Schizoaffective disorder, de pressive type F25.1 and BMI 40.0-44.9, adult Z68.41 [facility] [address] [id number] [address] [place] [id number] Feb, Dental examination Z01.20 [facility] [address] [id number] [address] [place] [address] Jan, [facility] [address] [id number] [address] [place] [address] Jan, Schizoaffective disorder, de pressive type F25.1 and BMI 40.0-44.9, adult Z68.41 [facility] [address] [id number] [address] [place] [address] Dec, Schizoaffective disorder, de pressive type F25.1 [facility] [address] [id number] [address] [place] [address] November, Schizoaffective disorder, de pressive type F25.1 and BMI 40.0-44.9, adult Z68.41 [facility] [address] [id number] [address] [place] [address] Oct, Schizoaffective disorder, de pressive type F25.1 [facility] [address] [id number] [address] [place] [id number] Oct, Dental examination Z01.20 [facility] [address] [id number] [address] [place] [address] Sep, Schizoaffective disorder, de pressive type F25.1 [facility] [address] [id number] [address] [place] [address] Aug, Schizoaffective disorder, de pressive type F25.1 and BMI 40.0-44.9, adult Z68.41 [facility] [address] [facility] [id number] [address] [place] [address] Jul, Schizoaffective disorder, de pressive type F25.1 [facility] [address] [facility] [id number] [address] [place] [address] Jul, Schizoaffective disorder, de pressive type F25.1 [facility] [address] [id number] [address] [place] [address] Jul, Schizoaffective disorder, de pressive type F25.1 [facility] [address] [id number] [address] [place] [id number] Jul, Dental examination Z01.20 [facility] [address] [id number] [address] [place] [id number] Jul, Dental examination Z01.20 [facility] [address] [facility] [id number] [address] [place] [address] Jun, Schizoaffective disorder, de pressive type F25.1 [facility] [address] [facility] [id number] [address] [place] [address] May, Schizoaffective disorder, de pressive type F25.1 and BMI 40.0-44.9, adult Z68.41 [facility] [address] [facility] [id number] [address] [place] [address] Apr, Schizoaffective disorder, de pressive type F25.1 [facility] [address] [facility] [id number] [address] [place] [address] Mar, Schizoaffective disorder, de pressive type F25.1 [facility] [address] [id number] [address] [place] [id number] Mar, Dental examination Z01.20 [place] [address] [facility] [address] [id number] [id number] Feb, Dental examination Z01.20 [facility] [address] [facility] [id number] [address] [place] [address] Feb, Schizoaffective disorder, de pressive type F25.1 [facility] [address] [facility] [id number] [address] [place] [address] Feb, Schizoaffective disorder, de pressive type F25.1 [facility] [address] [facility] [id number] [address] [place] [address] Feb, [facility] [address] [facility] [id number] [address] [place] [address] Feb, Schizoaffective disorder, de pressive type F25.1 [facility] [address] [facility] [id number] [address] [place] [address] Jan, Schizoaffective disorder, de pressive type F25.1 [facility] [address] [facility] [id number] [address] [place] [address] Jan, Well woman exam with routine gynecological exam Z01.419 [facility] [address] [facility] [id number] [address] [place] [address] Jan, Schizoaffective disorder, de pressive type F25.1 [facility] [address] [id number] [address] [place] [id number] Dec, Encounter for dental examina tion and cleaning without abnormal findings Z01.20 [facility] [address] [id number] [id number] Dec, Dental examination Z01.20 [facility] [address] [facility] [id number] [address] [place] [address] Dec, Schizoaffective disorder, de pressive type F25.1 [facility] [address] [facility] [id number] [address] [place] [address] Oct, Schizoaffective disorder, de pressive type F25.1 [facility] [address] [id number] [address] [place] [address] Oct, Schizoaffective disorder, de pressive type F25.1 [facility] [address] [id number] [address] [place] [id number] Sep, Dental examination Z01.20 [facility] [address] [id number] [address] [place] [address] Aug, Schizoaffective disorder, de pressive type F25.1 [facility] [address] [id number] [address] [place] [address] Jul, Schizoaffective disorder, de pressive type F25.1 [facility] [address] [id number] [address] [place] [id number] Jun, Encounter for dental examina tion and cleaning without abnormal findings Z01.20 [facility] [address] [id number] [id number] Jun, Dental examination Z01.20 [facility] [address] [id number] [address] [place] [address] Mar, Dental examination Z01.20 [facility] [address] [id number] [address] [place] [id number] Feb, Encounter for dental examina tion and cleaning without abnormal findings Z01.20 [facility] [address] [id number] [id number] November, Encounter for dental examination Z01.20 [facility] [address] [id number] [id number] Oct, Dental examination Z01.20 [facility] [address] [id number] [address] [place] [address] [id number] Oct, Encounter for dental examina tion and cleaning without abnormal findings Z01.20 [facility] [address] [id number] [address] [place] [id number] Jul, Dental examination Z01.20 [facility] [address] [id number] [address] [place] [id number] May, Encounter for dental examina tion Z01.20 [facility] [address] [id number] [address] [place] [id number] Jan, Dental examination V72.2 IMMUNIZATIONS No Known Immunizations SOCIAL HISTORY Never Assessed REASON FOR VISIT f/max Macdonald RN PLAN OF CARE Activity Details Follow Up 3 Months Reason: VITAL SIGNS Height 64.3 in 2018-04-07 Weight 229 lbs 2018-04-07 Heart Rate 78 bpm 2018-04-07 Respiratory Rate 20 2018-04-07 BMI 38.94 kg/m2 2018-04-07 Blood pressure systolic 128 mmHg 2018-04-07 Blood pressure diastolic 72 mmHg 2018-04-07 MEDICATIONS Medication Instructions Dosage Frequency Start Date End Date Duration S tatus Levothyroxine Sodium 88 MCG Orally Once a day 1 tablet 24h Active Depakote ER 500 mg Orally 2 times a day 2 tablet 12h 30 days Active Lorazepam 1 MG Orally Once a day 1 tablet at bedtime as needed 24h 30 days Active Oxybutynin Chloride 5 mg Orally Once a day 1 tablet 24h Active Vol-Plus 27-1 MG Orally Once a day 1 tablet 24h Jan, 30 day(s) Active Loratadine 10 MG Orally Once a day 1 tablet 24h Active Imipramine HCl 10 mg Orally Once a day 2 tablets at bedtime 24h Active Acetaminophen 325 MG Orally every 6 hrs 1 tablet as needed 6h Active Aspirin 325 MG Orally Once a day 1 tablet 24h Active Docusate Sodium 100 mg Orally twice a day 1 capsule as needed 12h Active Latuda 120 MG Orally Once a day 1 tablet with food 24h 30 days Active Topamax 25 MG Orally Once a day 1 tablet 24h 30 days Active Depo-Provera 150 MG/ML 1 ml A ctive RESULTS No Results PROCEDURES Procedure Date Ordered Result Body Site [facility] VISIT ESTABLISHED PATIENT Apr 07, 2018 INSTRUCTIONS MEDICATIONS ADMINISTERED No Known Medications
--- OUTSIDE RECORDS SUMMARY | 2019-09-20 23:27 | XMS REPORT ---
Author Author Afshan MONTOYA Organization [facility] Address [address] [place] [address] Phone Unavailable Care Team Providers Care Quality Control Lab Tech Name Role Phone RAMÍREZ MONTOYA Unavailable Unavailable PROBLEMS Type Condition ICD9-CM Code DZO02-AI Code Onset Dates Condition S tatus SNOMED Code Problem Bipolar affective disorder, current episode hypomanic F31.0 Active 00994927 Problem Schizoaffective disorder, depressive type F25.1 Active [id number] ALLERGIES Substance Reaction Event Type Date Status Risperidone Unknown Drug Allergy May, Active Risperdal Unknown Drug Allergy May, Active ENCOUNTERS Encounter Location Date Diagnosis [place] [address] [id number] [place] [phone] Jul, [facility] [id number] [address] [place] [phone] Jul, [facility] [id number] [place] [address] [phone] May, Encounter for prophylactic f luoride administration Z29.3 [place] [address] [id number] [address] [place] [phone] Apr, Schizoaffective disorder, de pressive type F25.1 [facility] [address] [id number] [address] [place] [phone] Apr, Schizoaffective disorder, de pressive type F25.1 [facility] [address] [id number] [address] [place] [phone] Apr, [facility] [address] [id number] [address] [place] [phone] Apr, Schizoaffective disorder, de pressive type F25.1 and Bipolar affective disorder, current episode hypomanic F31.0 [place] [address] [id number] [address] [place] [phone] Mar, Schizoaffective disorder, de pressive type F25.1 and Bipolar affective disorder, current episode hypomanic F31.0 [facility] [address] [id number] [address] [place] [phone] Feb, Schizoaffective disorder, de pressive type F25.1 [facility] [address] [id number] [address] [place] [phone] Feb, Schizoaffective disorder, de pressive type F25.1 [facility] [address] [id number] [address] [place] [phone] Feb, Schizoaffective disorder, de pressive type F25.1 and BMI 40.0-44.9, adult Z68.41 [facility] [address] [id number] [address] [place] [address] [phone] Feb, Dental examination Z01.20 [facility] [address] [id number] [address] [place] [phone] Jan, [facility] [address] [facility] [id number] [address] [place] [phone] Jan, Schizoaffective disorder, de pressive type F25.1 and BMI 40.0-44.9, adult Z68.41 [facility] [address] [id number] [address] [place] [phone] Dec, Schizoaffective disorder, de pressive type F25.1 [facility] [address] [id number] [address] [place] [phone] November, Schizoaffective disorder, de pressive type F25.1 and BMI 40.0-44.9, adult Z68.41 [facility] [address] [id number] [address] [place] [phone] Oct, Schizoaffective disorder, de pressive type F25.1 [facility] [address] [id number] [address] [place] [address] [phone] Oct, Dental examination Z01.20 [facility] [address] [id number] [address] [place] [phone] Sep, Schizoaffective disorder, de pressive type F25.1 [facility] [address] [id number] [address] [place] [phone] Aug, Schizoaffective disorder, de pressive type F25.1 and BMI 40.0-44.9, adult Z68.41 [facility] [address] [id number] [address] [place] [phone] Jul, Schizoaffective disorder, de pressive type F25.1 [facility] [address] [id number] [address] [place] [phone] Jul, Schizoaffective disorder, de pressive type F25.1 [facility] [address] [id number] [address] [place] [phone] Jul, Schizoaffective disorder, de pressive type F25.1 [facility] [address] [id number] [address] [place] [address] [phone] Jul, Dental examination Z01.20 [facility] [address] [id number] [address] [place] [address] [phone] Jul, Dental examination Z01.20 [facility] [address] [id number] [address] [place] [phone] Jun, Schizoaffective disorder, de pressive type F25.1 [facility] [address] [id number] [address] [place] [phone] May, Schizoaffective disorder, de pressive type F25.1 and BMI 40.0-44.9, adult Z68.41 [facility] [address] [id number] [address] [place] [phone] Apr, Schizoaffective disorder, de pressive type F25.1 [facility] [address] [id number] [address] [place] [phone] Mar, Schizoaffective disorder, de pressive type F25.1 [facility] [address] [id number] [address] [place] [address] [phone] Mar, 2017 Dental examination Z01.20 [facility] [address] [id number] [id number] Feb, Dental examination Z01.20 [facility] [address] [id number] [address] [place] [phone] Feb, Schizoaffective disorder, de pressive type F25.1 [facility] [address] [id number] [address] [place] [phone] Feb, Schizoaffective disorder, de pressive type F25.1 [facility] [address] [facility] [id number] [address] [place] [phone] Feb, [facility] [address] [id number] [address] [place] [phone] Feb, Schizoaffective disorder, de pressive type F25.1 [facility] [address] [facility] [id number] [address] [place] [phone] Jan, Schizoaffective disorder, de pressive type F25.1 [facility] [address] [facility] [id number] [address] [place] [phone] Jan, Well woman exam with routine gynecological exam Z01.419 [facility] [address] [id number] [address] [place] [phone] Jan, Schizoaffective disorder, de pressive type F25.1 [facility] [address] [id number] [id number] Dec, Dental examination Z01.20 [facility] [address] [id number] [address] [place] [address] [phone] Dec, Encounter for dental examina tion and cleaning without abnormal findings Z01.20 [facility] [address] [id number] [address] [place] [phone] Dec, Schizoaffective disorder, de pressive type F25.1 [facility] [address] [id number] [address] [place] [phone] Oct, Schizoaffective disorder, de pressive type F25.1 [facility] [address] [id number] [address] [place] [phone] Oct, Schizoaffective disorder, de pressive type F25.1 [facility] [address] [id number] [address] [place] [address] [phone] Sep, Dental examination Z01.20 [facility] [address] [id number] [address] [place] [phone] Aug, Schizoaffective disorder, de pressive type F25.1 [facility] [address] [id number] [address] [place] [phone] Jul, Schizoaffective disorder, de pressive type F25.1 [facility] [address] [id number] [id number] Jun, Dental examination Z01.20 [facility] [address] [id number] [address] [place] [address] [phone] Jun, Encounter for dental examina tion and cleaning without abnormal findings Z01.20 [facility] [address] [id number] [address] [place] [phone] Mar, Dental examination Z01.20 [facility] [address] [id number] [address] [place] [address] [phone] Feb, Encounter for dental examina tion and cleaning without abnormal findings Z01.20 [facility] [address] [id number] [place] [phone] November, Encounter for dental examination Z01.20 [facility] [address] [id number] [place] [id number] Oct, Dental examination Z01.20 [facility] [address] [id number] [address] [place] [address] [phone] Oct, Encounter for dental examina tion and cleaning without abnormal findings Z01.20 [facility] [address] [id number] [address] [place] [address] [phone] Jul, Dental examination Z01.20 [facility] [address] [id number] [address] [place] [address] [phone] May, Encounter for dental examina tion Z01.20 [facility] [address] [id number] [address] [place] [address] [phone] Jan, Dental examination V72.2 IMMUNIZATIONS No Known Immunizations SOCIAL HISTORY Never Assessed REASON FOR VISIT PLAN OF CARE Activity Details Follow Up 3 Months Reason:on site reca ll VITAL SIGNS MEDICATIONS Medication Instructions Dosage Frequency Start Date End Date Duration S tatus Depakote ER 500 mg Orally 2 times a day 2 tablet 12h 30 days Active Topamax 25 MG Orally Once a day 1 tablet 24h 30 days Active Depo-Provera 150 MG/ML 1 ml A ctive Latuda 120 MG Orally Once a day 1 tablet with food 24h 30 days Active Aspirin 325 MG Orally Once a day 1 tablet 24h Active Acetaminophen 325 MG Orally every 6 hrs 1 tablet as needed 6h Active Lorazepam 1 MG Orally Once a day 1 tablet at bedtime as needed 24h 30 days Active Vol-Plus 27-1 MG Orally Once a day 1 tablet 24h Jan, 30 day(s) Active Oxybutynin Chloride 5 mg Orally Once a day 1 tablet 24h Active Loratadine 10 MG Orally Once a day 1 tablet 24h Active Docusate Sodium 100 mg Orally twice a day 1 capsule as needed 12h Active Imipramine HCl 10 mg Orally Once a day 2 tablets at bedtime 24h Active Levothyroxine Sodium 88 MCG Orally Once a day 1 tablet 24h Active RESULTS No Results PROCEDURES Procedure Date Ordered Result Body Site PROPHYLAXIS - ADULT Jun 01, 2018 TOPICAL FLUORIDE VARNISH Jun 01, 2018 INSTRUCTIONS MEDICATIONS ADMINISTERED No Known Medications MEDICAL (GENERAL) HISTORY Type Description Date Surgical History No know Surgical history
--- OUTSIDE RECORDS SUMMARY | 2019-09-20 23:28 | XMS REPORT ---
Author Author Afshan OLIVO Organization [facility] [address] Address [address] [place] [address] Care Team Providers Care Surgical Device Sales Representative Name Role Phone MICHELLE OLIVO Unavailable PROBLEMS Type Condition ICD9-CM Code AQP58-QK Code Onset Dates Condition S tatus SNOMED Code Problem Bipolar affective disorder, current episode hypomanic F31.0 Active 17926446 Problem Schizoaffective disorder, depressive type F25.1 Active 17481975 ALLERGIES No Information ENCOUNTERS Encounter Location Date Diagnosis [place] [address] [id number] [address] [place] [phone] May, [place] [address] [address] [id number] [address] [place] [phone] Apr, [place] [address] [place] [address] [id number] [address] [place] [phone] Apr, [place] [address] [id number] [address] [place] [phone] Mar, Schizoaffective disorder, de pressive type F25.1 and Bipolar affective disorder, current episode hypomanic F31.0 [place] [address] [id number] [address] [place] [phone] Feb, Schizoaffective disorder, de pressive type F25.1 [place] [address] [facility] [id number] [address] [place] [phone] Feb, Schizoaffective disorder, de pressive type F25.1 [place] [address] [facility] [id number] [address] [place] [phone] Feb, Schizoaffective disorder, de pressive type F25.1 and BMI 40.0-44.9, adult Z68.41 [facility] [address] [id number] [place] [id number] Feb, Dental examination Z01.20 [facility] [address] [id number] [address] [place] [phone] Jan, [facility] [address] [id number] [address] [place] [phone] Jan, Schizoaffective disorder, de pressive type F25.1 and BMI 40.0-44.9, adult Z68.41 [facility] [address] [id number] [address] [place] [phone] Dec, Schizoaffective disorder, de pressive type F25.1 [facility] [address] [id number] [address] [place] [phone] November, Schizoaffective disorder, de pressive type F25.1 and BMI 40.0-44.9, adult Z68.41 [facility] [address] [id number] [address] [place] [phone] Oct, Schizoaffective disorder, de pressive type F25.1 [facility] [address] [id number] [address] [place] [address] [phone] Oct, Dental examination Z01.20 [facility] [address] [id number] [address] [place] [phone] Sep, Schizoaffective disorder, de pressive type F25.1 [facility] [address] [id number] [address] [place] [phone] Aug, Schizoaffective disorder, de pressive type F25.1 and BMI 40.0-44.9, adult Z68.41 [facility] [address] [id number] [address] [place] [phone] Jul, Schizoaffective disorder, de pressive type F25.1 [facility] [address] [id number] [address] [place] [phone] Jul, Schizoaffective disorder, de pressive type F25.1 [facility] [address] [id number] [address] [place] [phone] Jul, Schizoaffective disorder, de pressive type F25.1 [facility] [address] [id number] [address] [place] [address] [id number] Jul, Dental examination Z01.20 [facility] [address] [id number] [address] [place] [address] [id number] Jul, Dental examination Z01.20 [facility] [address] [id number] [address] [place] [phone] Jun, Schizoaffective disorder, de pressive type F25.1 [facility] [address] [id number] [address] [place] [phone] May, Schizoaffective disorder, de pressive type F25.1 and BMI 40.0-44.9, adult Z68.41 [facility] [address] [facility] [id number] [address] [place] [phone] Apr, Schizoaffective disorder, de pressive type F25.1 [facility] [address] [facility] [id number] [address] [place] [phone] Mar, Schizoaffective disorder, de pressive type F25.1 [facility] [address] [id number] [address] [place] [address] [id number] Mar, Dental examination Z01.20 [facility] [id number] [place] [address] [phone] Feb, Dental examination Z01.20 [facility] [address] [id number] [address] [place] [phone] Feb, Schizoaffective disorder, de pressive type F25.1 [facility] [address] [facility] [id number] [address] [place] [phone] Feb, Schizoaffective disorder, de pressive type F25.1 [facility] [address] [id number] [address] [place] [phone] Feb, [facility] [address] [id number] [address] [place] [phone] Feb, Schizoaffective disorder, de pressive type F25.1 [facility] [address] [id number] [address] [place] [phone] Jan, Schizoaffective disorder, de pressive type F25.1 [facility] [address] [id number] [address] [place] [phone] Jan, Well woman exam with routine gynecological exam Z01.419 [facility] [address] [id number] [address] [place] [phone] Jan, Schizoaffective disorder, de pressive type F25.1 [facility] [address] [id number] [address] [place] [address] [phone] Dec, Encounter for dental examina tion and cleaning without abnormal findings Z01.[id number] [place] [address] [phone] Dec, Dental examination Z01.20 [facility] [address] [id number] [address] [place] [phone] Dec, Schizoaffective disorder, de pressive type F25.1 [facility] [address] [id number] [address] [place] [phone] Oct, Schizoaffective disorder, de pressive type F25.1 [facility] [address] [id number] [address] [place] [phone] Oct, Schizoaffective disorder, de pressive type F25.1 [facility] [address] [id number] [address] [place] [address] [id number] Sep, Dental examination Z01.20 [facility] [address] [id number] [address] [place] [phone] 08 Aug, 2016 Schizoaffective disorder, de pressive type F25.1 [facility] [address] [id number] [address] [place] [phone] Jul, Schizoaffective disorder, de pressive type F25.1 [facility] [address] [id number] [address] [place] [address] [phone] Jun, Encounter for dental examina tion and cleaning without abnormal findings Z01.20 [facility] [address] [id number] [phone] Jun, Dental examination Z01.20 [facility] [address] [id number] [address] [place] [phone] Mar, Dental examination Z01.20 [facility] [address] [id number] [address] [place] [address] [phone] Feb, Encounter for dental examina tion and cleaning without abnormal findings Z01.20 [facility] [address] [id number] [phone] November, Encounter for dental examination Z01.20 [facility] [address] [facility] [address] [id number] [id number] Oct, Dental examination Z01.20 [facility] [address] [id number] [address] [place] [address] [phone] Oct, Encounter for dental examina tion and cleaning without abnormal findings Z01.20 [facility] [address] [id number] [address] [place] [address] [id number] Jul, Dental examination Z01.20 [facility] [address] [id number] [address] [place] [address] [phone] May, Encounter for dental examina tion Z01.20 [facility] [address] [id number] [address] [place] [address] [id number] Jan, Dental examination V72.2 IMMUNIZATIONS No Known Immunizations SOCIAL HISTORY Never Assessed REASON FOR VISIT depakote 02/16/2018 PLAN OF CARE VITAL SIGNS MEDICATIONS Medication Instructions Dosage Frequency Start Date End Date Duration S gretta Depakote ER 500 mg Orally 2 times a day 1 tablet in tablet in the Am and 2 tabs at night 12h 30 days Active RESULTS No Results PROCEDURES No Known procedures INSTRUCTIONS MEDICATIONS ADMINISTERED No Known Medications
--- OUTSIDE RECORDS SUMMARY | 2019-09-20 23:28 | XMS REPORT ---
Author Author Afshan OLIVO [facility] Address [address] [place] [address] Care Team Providers Care Well Logging Mud Analysis Captain Name Role Phone PALLAVI, DAWJAYCE Unavailable PROBLEMS Type Condition ICD9-CM Code LZM26-HC Code Onset Dates Condition S tatus SNOMED Code Problem Schizoaffective disorder, depressive type F25.1 Active [id number] ALLERGIES No Information ENCOUNTERS Encounter Location Date Diagnosis [place] [address] [place] [id number] [address] [place] [phone] May, [facility] [address] [place] [id number] [address] [place] [phone] Apr, [facility] [address] [id number] [address] [place] [phone] Mar, [place] [address] [place] [id number] [address] [place] [phone] Feb, Schizoaffective disorder, de pressive type F25.1 [place] [address] [place] [id number] [address] [place] [phone] Feb, Schizoaffective disorder, de pressive type F25.1 [facility] [address] [place] [id number] [address] [place] [phone] 08 Feb, 2018 Schizoaffective disorder, de pressive type F25.1 and BMI 40.0-44.9, adult Z68.41 [facility] [address] [facility] [id number] [address] [place] [address] [phone] Feb, Dental examination Z01.20 [facility] [address] [place] [id number] [address] [place] [phone] Jan, [place] [id number] [facility] [id number] [address] [place] [phone] Jan, Schizoaffective disorder, de pressive type F25.1 and BMI 40.0-44.9, adult Z68.41 [facility] [address] [facility] [id number] [address] [place] [phone] Dec, Schizoaffective disorder, de pressive type F25.1 [facility] [address] [facility] [id number] [address] [place] [phone] November, Schizoaffective disorder, de pressive type F25.1 and BMI 40.0-44.9, adult Z68.41 [facility] [address] [facility] [id number] [address] [place] [phone] Oct, Schizoaffective disorder, de pressive type F25.1 [facility] [address] [facility] [id number] [address] [place] [address] [phone] Oct, Dental examination Z01.20 [facility] [address] [facility] [id number] [address] [place] [phone] Sep, Schizoaffective disorder, de pressive type F25.1 [facility] [address] [facility] [id number] [address] [place] [phone] Aug, Schizoaffective disorder, de pressive type F25.1 and BMI 40.0-44.9, adult Z68.41 [facility] [address] [facility] [id number] [address] [place] [phone] Jul, Schizoaffective disorder, de pressive type F25.1 [facility] [address] [facility] [id number] [address] [place] [phone] Jul, Schizoaffective disorder, de pressive type F25.1 [facility] [address] [facility] [id number] [address] [place] [phone] Jul, Schizoaffective disorder, de pressive type F25.1 [facility] [address] [id number] [address] [place] [address] [id number] Jul, Dental examination Z01.20 [facility] [address] [id number] [address] [place] [address] [phone] Jul, Dental examination Z01.20 [facility] [address] [id number] [address] [place] [phone] Jun, Schizoaffective disorder, de pressive type F25.1 [facility] [address] [id number] [address] [place] [phone] May, Schizoaffective disorder, de pressive type F25.1 and BMI 40.0-44.9, adult Z68.41 [facility] [address] [id number] [address] [place] [phone] Apr, Schizoaffective disorder, de pressive type F25.1 [facility] [address] [facility] [id number] [address] [place] [phone] Mar, Schizoaffective disorder, de pressive type F25.1 [facility] [address] [id number] [address] [place] [address] [phone] Mar, Dental examination Z01.20 [place] [id number] [facility] [id number] [place] [address] [id number] Feb, Dental examination Z01.20 [facility] [address] [facility] [id number] [address] [place] [phone] Feb, Schizoaffective disorder, de pressive type F25.1 [facility] [address] [id number] [address] [place] [phone] Feb, Schizoaffective disorder, de pressive type F25.1 [facility] [address] [id number] [address] [place] [phone] Feb, [facility] [address] [id number] [address] [place] [phone] Feb, Schizoaffective disorder, de pressive type F25.1 [facility] [address] [facility] [id number] [address] [place] [phone] Jan, Schizoaffective disorder, de pressive type F25.1 [facility] [address] [id number] [address] [place] [phone] Jan, Well woman exam with routine gynecological exam Z01.419 [facility] [address] [id number] [address] [place] [phone] Jan, Schizoaffective disorder, de pressive type F25.1 [facility] [address] [facility] [id number] [place] [address] [phone] Dec, Dental examination Z01.20 [facility] [address] [id number] [address] [place] [address] [phone] Dec, Encounter for dental examina tion and cleaning without abnormal findings Z01.20 [facility] [address] [id number] [address] [place] [phone] Dec, Schizoaffective disorder, de pressive type F25.1 [facility] [address] [facility] [id number] [address] [place] [phone] Oct, Schizoaffective disorder, de pressive type F25.1 [facility] [address] [facility] [id number] [address] [place] [phone] Oct, Schizoaffective disorder, de pressive type F25.1 [facility] [address] [id number] [address] [place] [address] [phone] Sep, Dental examination Z01.20 [facility] [address] [id number] [address] [place] [phone] Aug, Schizoaffective disorder, de pressive type F25.1 [facility] [address] [facility] [id number] [address] [place] [phone] Jul, Schizoaffective disorder, de pressive type F25.1 [facility] [address] [facility] [address] [id number] [place] [phone] Jun, Dental examination Z01.20 [facility] [address] [id number] [address] [place] [address] [id number] Jun, Encounter for dental examina tion and cleaning without abnormal findings Z01.20 [facility] [address] [id number] [address] [place] [phone] Mar, Dental examination Z01.20 [facility] [address] [id number] [address] [place] [address] [phone] Feb, Encounter for dental examina tion and cleaning without abnormal findings Z01.20 [facility] [address] [facility] [address] [id number] [place] [phone] November, Encounter for dental examination Z01.20 [facility] [address] [facility] [address] [id number] [place] [id number] Oct, Dental examination Z01.20 [facility] [address] [id number] [address] [place] [address] [phone] Oct, Encounter for dental examina tion and cleaning without abnormal findings Z01.20 [facility] [address] [id number] [address] [place] [address] [phone] Jul, Dental examination Z01.20 [facility] [address] [id number] [address] [place] [address] [phone] May, Encounter for dental examina tion Z01.20 [facility] [address] [id number] [address] [place] [address] [phone] Jan, Dental examination V72.2 IMMUNIZATIONS No Known Immunizations SOCIAL HISTORY Never Assessed REASON FOR VISIT Requests return call PLAN OF CARE VITAL SIGNS MEDICATIONS Unknown Medications RESULTS No Results PROCEDURES No Known procedures INSTRUCTIONS MEDICATIONS ADMINISTERED No Known Medications
--- OUTSIDE RECORDS SUMMARY | 2019-09-20 23:28 | XMS REPORT ---
Author Author Afshan OLIVO Organization [facility] [address] Address [address] [place] [address] Care Team Providers Care Software Engineering Manager Name Role Phone MICHELLE OLIVO Unavailable PROBLEMS Type Condition ICD9-CM Code XXB64-EI Code Onset Dates Condition S tatus SNOMED Code Problem Bipolar affective disorder, current episode hypomanic F31.0 Active 04194475 Problem Schizoaffective disorder, depressive type F25.1 Active [id number] ALLERGIES No Information ENCOUNTERS Encounter Location Date Diagnosis [place] [address] [place] [id number] [address] [place] [phone] May, [place] [address] [place] [id number] [address] [place] [phone] Apr, [place] [address] [place] [id number] [address] [place] [phone] Apr, [place] [address] [place] [id number] [address] [place] [phone] Mar, Schizoaffective disorder, de pressive type F25.1 and Bipolar affective disorder, current episode hypomanic F31.0 [place] [address] [place] [id number] [address] [place] [phone] Feb, Schizoaffective disorder, de pressive type F25.1 [place] [address] [facility] [id number] [address] [place] [phone] Feb, Schizoaffective disorder, de pressive type F25.1 [place] [address] [facility] [id number] [address] [place] [phone] Feb, Schizoaffective disorder, de pressive type F25.1 and BMI 40.0-44.9, adult Z68.41 [facility] [address] [id number] [place] [id number] Feb, Dental examination Z01.20 [facility] [place] [address] [id number] [address] [place] [phone] Jan, [facility] [place] [address] [id number] [address] [place] [phone] Jan, Schizoaffective disorder, de pressive type F25.1 and BMI 40.0-44.9, adult Z68.41 [facility] [place] [address] [id number] [address] [place] [phone] Dec, Schizoaffective disorder, de pressive type F25.1 [facility] [place] [address] [id number] [address] [place] [phone] November, Schizoaffective disorder, de pressive type F25.1 and BMI 40.0-44.9, adult Z68.41 [facility] [place] [address] [id number] [address] [place] [phone] Oct, Schizoaffective disorder, de pressive type F25.1 [facility] [address] [id number] [address] [place] [address] [phone] Oct, Dental examination Z01.20 [facility] [place] [address] [id number] [address] [place] [phone] Sep, Schizoaffective disorder, de pressive type F25.1 [facility] [place] [address] [id number] [address] [place] [phone] Aug, Schizoaffective disorder, de pressive type F25.1 and BMI 40.0-44.9, adult Z68.41 [facility] [place] [address] [id number] [address] [place] [phone] Jul, Schizoaffective disorder, de pressive type F25.1 [facility] [place] [address] [id number] [address] [place] [phone] Jul, Schizoaffective disorder, de pressive type F25.1 [facility] [place] [address] [id number] [address] [place] [phone] Jul, Schizoaffective disorder, de pressive type F25.1 [facility] [address] [id number] [address] [place] [address] [phone] Jul, Dental examination Z01.20 [facility] [address] [id number] [address] [place] [address] [phone] Jul, Dental examination Z01.20 [facility] [place] [address] [id number] [address] [place] [phone] Jun, Schizoaffective disorder, de pressive type F25.1 [facility] [place] [address] [id number] [address] [place] [phone] May, Schizoaffective disorder, de pressive type F25.1 and BMI 40.0-44.9, adult Z68.41 [facility] [place] [address] [facility] [id number] [address] [place] [phone] Apr, Schizoaffective disorder, de pressive type F25.1 [facility] [place] [address] [facility] [id number] [address] [place] [phone] Mar, Schizoaffective disorder, de pressive type F25.1 [facility] [address] [id number] [address] [place] [address] [phone] Mar, Dental examination Z01.20 [facility] [address] [id number] [place] [address] [phone] Feb, Dental examination Z01.20 [facility] [place] [address] [id number] [address] [place] [phone] Feb, Schizoaffective disorder, de pressive type F25.1 [facility] [place] [address] [facility] [id number] [address] [place] [phone] Feb, Schizoaffective disorder, de pressive type F25.1 [facility] [place] [address] [id number] [address] [place] [phone] Feb, [facility] [place] [address] [id number] [address] [place] [phone] Feb, Schizoaffective disorder, de pressive type F25.1 [facility] [place] [address] [id number] [address] [place] [phone] Jan, Schizoaffective disorder, de pressive type F25.1 [facility] [place] [address] [id number] [address] [place] [phone] Jan, Well woman exam with routine gynecological exam Z01.419 [facility] [place] [address] [id number] [address] [place] [phone] Jan, Schizoaffective disorder, de pressive type F25.1 [facility] [address] [id number] [address] [place] [address] [phone] Dec, Encounter for dental examina tion and cleaning without abnormal findings Z01.[address] [id number] [place] [address] [phone] Dec, Dental examination Z01.20 [facility] [place] [address] [id number] [address] [place] [phone] Dec, Schizoaffective disorder, de pressive type F25.1 [facility] [place] [address] [id number] [address] [place] [phone] Oct, Schizoaffective disorder, de pressive type F25.1 [facility] [place] [address] [id number] [address] [place] [phone] Oct, Schizoaffective disorder, de pressive type F25.1 [facility] [address] [id number] [address] [place] [address] [phone] Sep, Dental examination Z01.20 [facility] [place] [address] [id number] [address] [place] [phone] 08 Aug, 2016 Schizoaffective disorder, de pressive type F25.1 [facility] [place] [address] [id number] [address] [place] [phone] Jul, Schizoaffective disorder, de pressive type F25.1 [facility] [address] [id number] [address] [place] [address] [phone] Jun, Encounter for dental examina tion and cleaning without abnormal findings Z01.20 [facility] [address] [address] [id number] [id number] Jun, Dental examination Z01.20 [facility] [place] [address] [id number] [address] [place] [phone] Mar, Dental examination Z01.20 [facility] [address] [id number] [address] [place] [address] [phone] Feb, Encounter for dental examina tion and cleaning without abnormal findings Z01.20 [facility] [address] [id number] [id number] November, Encounter for dental examination Z01.20 [facility] [address] [facility] [address] [id number] [place] [phone] Oct, Dental examination Z01.20 [facility] [address] [id number] [address] [place] [address] [phone] Oct, Encounter for dental examina tion and cleaning without abnormal findings Z01.20 [facility] [address] [id number] [address] [place] [address] [phone] Jul, Dental examination Z01.20 [facility] [address] [id number] [address] [place] [address] [phone] May, Encounter for dental examina tion Z01.20 [facility] [address] [id number] [address] [place] [address] [phone] Jan, Dental examination V72.2 IMMUNIZATIONS No Known Immunizations SOCIAL HISTORY Never Assessed REASON FOR VISIT f/u PLAN OF CARE Activity Details Follow Up 3 Months Reason: VITAL SIGNS MEDICATIONS Medication Instructions Dosage Frequency Start Date End Date Duration S tatus Topamax 25 MG Orally Once a day 1 tablet 24h 30 days Active Oxybutynin Chloride 5 mg Orally Once a day 1 tablet 24h Active Latuda 80 MG Orally Once a day 1 tablet with food 24h 30 days Active Depakote ER 500 mg Orally 2 times a day 1 tablet in tablet in the Am and 2 tabs at night 12h 30 days Active Levothyroxine Sodium 88 MCG Orally Once a day 1 tablet 24h Active Docusate Sodium 100 mg Orally twice a day 1 capsule as needed 12h Active Depo-Provera 150 MG/ML 1 ml A ctive Vol-Plus 27-1 MG Orally Once a day 1 tablet 24h Jan, 30 day(s) Active Aspirin 325 MG Orally Once a day 1 tablet 24h Active Imipramine HCl 10 mg Orally Once a day 2 tablets at bedtime 24h Active Acetaminophen 325 MG Orally every 6 hrs 1 tablet as needed 6h Active Lorazepam 1 MG Orally Once a day 1 tablet at bedtime as needed 24h 30 days Active Latuda 20 mg Orally Once a day 1 tablet with food 24h 30 day(s) Active Loratadine 10 MG Orally Once a day 1 tablet 24h Active RESULTS No Results PROCEDURES Procedure Date Ordered Result Body Site [facility] VISIT ESTABLISHED PATIENT Feb 10, 2018 INSTRUCTIONS MEDICATIONS ADMINISTERED No Known Medications
--- OUTSIDE RECORDS SUMMARY | 2019-09-20 23:28 | XMS REPORT ---
Author Author Afshan OLIVO Organization [facility] [address] Address [address] [place] [address] Care Team Providers Care Technical Project Coordinator Name Role Phone MICHELLE OLIVO Unavailable PROBLEMS Type Condition ICD9-CM Code [id number] Code Onset Dates Condition S tatus SNOMED Code Problem Bipolar affective disorder, current episode hypomanic F31.0 Active 05422495 Problem Schizoaffective disorder, depressive type F25.1 Active 12240075 ALLERGIES No Information ENCOUNTERS Encounter Location Date Diagnosis [place] [address] [id number] [address] [place] [phone] May, [place] [address] [place] [id number] [address] [place] [phone] Apr, [place] [address] [place] [id number] [address] [place] [phone] Apr, [place] [address] [place] [id number] [address] [place] [phone] Mar, Schizoaffective disorder, de pressive type F25.1 and Bipolar affective disorder, current episode hypomanic F31.0 [place] [address] [place] [id number] [address] [place] [phone] Feb, Schizoaffective disorder, de pressive type F25.1 [place] [address] [facility] [id number] [address] [place] [phone] Feb, Schizoaffective disorder, de pressive type F25.1 [place] [address] [facility] [id number] [address] [place] [phone] Feb, Schizoaffective disorder, de pressive type F25.1 and BMI 40.0-44.9, adult Z68.41 [facility] [address] [id number] [place] [id number] Feb, Dental examination Z01.20 [facility] [address] [id number] [address] [place] [phone] Jan, [facility] [address] [id number] [address] [place] [phone] Jan, Schizoaffective disorder, de pressive type F25.1 and BMI 40.0-44.9, adult Z68.41 [facility] [address] [id number] [address] [place] [phone] Dec, Schizoaffective disorder, de pressive type F25.1 [facility] [address] [id number] [address] [place] [phone] November, Schizoaffective disorder, de pressive type F25.1 and BMI 40.0-44.9, adult Z68.41 [facility] [address] [id number] [address] [place] [phone] Oct, Schizoaffective disorder, de pressive type F25.1 [facility] [address] [id number] [address] [place] [address] [id number] Oct, Dental examination Z01.20 [facility] [address] [id number] [address] [place] [phone] Sep, Schizoaffective disorder, de pressive type F25.1 [facility] [address] [id number] [address] [place] [phone] Aug, Schizoaffective disorder, de pressive type F25.1 and BMI 40.0-44.9, adult Z68.41 [facility] [address] [id number] [address] [place] [phone] Jul, Schizoaffective disorder, de pressive type F25.1 [facility] [address] [id number] [address] [place] [phone] Jul, Schizoaffective disorder, de pressive type F25.1 [facility] [address] [id number] [address] [place] [phone] Jul, Schizoaffective disorder, de pressive type F25.1 [facility] [address] [id number] [address] [place] [address] [phone] Jul, Dental examination Z01.20 [facility] [address] [id number] [address] [place] [address] [id number] Jul, Dental examination Z01.20 [facility] [address] [id number] [address] [place] [phone] Jun, Schizoaffective disorder, de pressive type F25.1 [facility] [address] [id number] [address] [place] [phone] May, Schizoaffective disorder, de pressive type F25.1 and BMI 40.0-44.9, adult Z68.41 [facility] [address] [facility] [id number] [address] [place] [phone] Apr, Schizoaffective disorder, de pressive type F25.1 [facility] [address] [facility] [id number] [address] [place] [phone] Mar, Schizoaffective disorder, de pressive type F25.1 [facility] [address] [id number] [address] [place] [address] [phone] Mar, Dental examination Z01.20 [facility] IRZZO [facility] [id number] [place] [address] [id number] Feb, Dental examination Z01.20 [facility] [address] [id number] [address] [place] [phone] Feb, Schizoaffective disorder, de pressive type F25.1 [facility] [address] [facility] [id number] [address] [place] [phone] Feb, Schizoaffective disorder, de pressive type F25.1 [facility] [address] [id number] [address] [place] [phone] Feb, [facility] [address] [id number] [address] [place] [phone] Feb, Schizoaffective disorder, de pressive type F25.1 [facility] [address] [id number] [address] [place] [phone] Jan, Schizoaffective disorder, de pressive type F25.1 [facility] [address] [id number] [address] [place] [phone] Jan, Well woman exam with routine gynecological exam Z01.419 [facility] [address] [id number] [address] [place] [phone] Jan, Schizoaffective disorder, de pressive type F25.1 [facility] [address] [id number] [address] [place] [address] [phone] Dec, Encounter for dental examina tion and cleaning without abnormal findings Z01.[id number] [place] [address] [id number] Dec, Dental examination Z01.20 [facility] [address] [id number] [address] [place] [phone] Dec, Schizoaffective disorder, de pressive type F25.1 [facility] [address] [id number] [address] [place] [phone] Oct, Schizoaffective disorder, de pressive type F25.1 [facility] [address] [id number] [address] [place] [phone] Oct, Schizoaffective disorder, de pressive type F25.1 [facility] [address] [id number] [address] [place] [address] [id number] Sep, Dental examination Z01.20 [facility] [address] [id number] [address] [place] [phone] 08 Aug, 2016 Schizoaffective disorder, de pressive type F25.1 [facility] [address] [id number] [address] [place] [phone] Jul, Schizoaffective disorder, de pressive type F25.1 [facility] [address] [id number] [address] [place] [address] [phone] Jun, Encounter for dental examina tion and cleaning without abnormal findings Z01.20 [facility] [address] [id number] [id number] Jun, Dental examination Z01.20 [facility] [address] [id number] [address] [place] [phone] Mar, Dental examination Z01.20 [facility] [address] [id number] [address] [place] [address] [phone] Feb, Encounter for dental examina tion and cleaning without abnormal findings Z01.20 [facility] [address] [id number] [phone] November, Encounter for dental examination Z01.20 [facility] [address] [facility] [address] [id number] [id number] Oct, Dental examination Z01.20 [facility] [address] [id number] [address] [place] [address] [id number] Oct, Encounter for dental examina tion and cleaning without abnormal findings Z01.20 [facility] [address] [id number] [address] [place] [address] [phone] Jul, Dental examination Z01.20 [facility] [address] [id number] [address] [place] [address] [phone] May, Encounter for dental examina tion Z01.20 [facility] [address] [id number] [address] [place] [address] [id number] Jan, Dental examination V72.2 IMMUNIZATIONS No Known Immunizations SOCIAL HISTORY Never Assessed REASON FOR VISIT BH f/u WB-MA, LABS PLAN OF CARE Activity Details Follow Up 4 Weeks Reason: VITAL SIGNS Height 64.3 in 2018-01-08 Weight 239 lbs 2018-01-08 Heart Rate 76 bpm 2018-01-08 Respiratory Rate 20 2018-01-08 BMI 40.64 kg/m2 2018-01-08 Blood pressure systolic 122 mmHg 2018-01-08 Blood pressure diastolic 80 mmHg 2018-01-08 MEDICATIONS Medication Instructions Dosage Frequency Start Date End Date Duration S tatus Imipramine HCl 10 mg Orally Once a day 2 tablets at bedtime 24h Active Depo-Provera 150 MG/ML 1 ml A ctive Levothyroxine Sodium 88 MCG Orally Once a day 1 tablet 24h Active Aspirin 325 MG Orally Once a day 1 tablet 24h Active Depakote ER 500 mg Orally 2 times a day 1 tablets in the Am and 2 a t night 12h 30 days Active Latuda 80 MG Orally Once a day 1 tablet with food 24h 30 days Active Latuda 20 mg Orally Once a day 1 tablet with food 24h November, 30 days Active Loratadine 10 MG Orally Once a day 1 tablet 24h Active Zovirax 5 % Externally every 3 hrs 1 application to affected area 3h Not-Taking Docusate Sodium 100 mg Orally twice a day 1 capsule as needed 12h Active Topamax 25 MG Orally Once a day 1 tablet 24h 30 days Active Acetaminophen 325 MG Orally every 6 hrs 1 tablet as needed 6h Active Oxybutynin Chloride 5 mg Orally Once a day 1 tablet 24h Active Vol-Plus 27-1 MG Orally Once a day 1 tablet 24h Jan, 30 day(s) Active Lorazepam 1 MG Orally Once a day 1 tablet at bedtime as needed 24h 30 days Active RESULTS No Results PROCEDURES Procedure Date Ordered Result Body Site [facility] V[facility] ESTABLISHED PATIENT January 08, 2018 INSTRUCTIONS MEDICATIONS ADMINISTERED No Known Medications
--- OUTSIDE RECORDS SUMMARY | 2019-09-20 23:28 | XMS REPORT ---
Author Author Afshan MONTOYA Organization [facility] Address [address] [place] [address] Phone Unavailable Care Team Providers Care Housing Inspector Name Role Phone RAMÍREZ MONTOYA Unavailable Unavailable PROBLEMS Type Condition ICD9-CM Code [id number] Code Onset Dates Condition S tatus SNOMED Code Problem Schizoaffective disorder, depressive type F25.1 Active [id number] ALLERGIES Substance Reaction Event Type Date Status Risperidone Unknown Drug Allergy Oct, Active Risperdal Unknown Drug Allergy Oct, Active ENCOUNTERS Encounter Location Date Diagnosis [facility] [address] [facility] [place] [id number] [address] [place] [phone] Apr, [facility] [address] [place] [id number] [address] [place] [phone] Feb, [id number] [place] [address] [phone] Feb, [facility] [address] [facility] [place] [id number] [address] [place] [phone] Jan, [facility] [address] [place] [address] [id number] [address] [place] [phone] Jan, Schizoaffective disorder, de pressive type F25.1 and BMI 40.0-44.9, adult Z68.41 [facility] [address] [facility] [place] [id number] [address] [place] [phone] Dec, Schizoaffective disorder, de pressive type F25.1 [facility] [address] [facility] [place] [id number] [address] [place] [phone] November, Schizoaffective disorder, de pressive type F25.1 and BMI 40.0-44.9, adult Z68.41 [facility] [address] [facility] [place] [id number] [address] [place] [phone] Oct, Schizoaffective disorder, de pressive type F25.1 [facility] [address] [id number] [address] [place] [address] [phone] Oct, Dental examination Z01.20 [facility] [address] [facility] [place] [id number] [address] [place] [phone] Sep, Schizoaffective disorder, de pressive type F25.1 [facility] [address] [facility] [place] [id number] [address] [place] [phone] Aug, Schizoaffective disorder, de pressive type F25.1 and BMI 40.0-44.9, adult Z68.41 [facility] [address] [facility] [place] [id number] [address] [place] [phone] Jul, Schizoaffective disorder, de pressive type F25.1 [facility] [address] [facility] [place] [id number] [address] [place] [phone] Jul, Schizoaffective disorder, de pressive type F25.1 [facility] [address] [facility] [place] [id number] [address] [place] [phone] Jul, Schizoaffective disorder, de pressive type F25.1 [facility] [address] [id number] [address] [place] [address] [id number] Jul, Dental examination Z01.20 [facility] [address] [id number] [address] [place] [address] [id number] Jul, Dental examination Z01.20 [facility] [address] [facility] [place] [id number] [address] [place] [phone] Jun, Schizoaffective disorder, de pressive type F25.1 [facility] [address] [facility] [place] [id number] [address] [place] [phone] May, Schizoaffective disorder, de pressive type F25.1 and BMI 40.0-44.9, adult Z68.41 [facility] [address] [facility] [place] [id number] [address] [place] [phone] Apr, Schizoaffective disorder, de pressive type F25.1 [facility] [address] [facility] [place] [id number] [address] [place] [phone] Mar, Schizoaffective disorder, de pressive type F25.1 [facility] [address] [id number] [address] [place] [address] [id number] Mar, 2017 Dental examination Z01.20 [place] [id number] [facility] [id number] [place] [id number] Feb, Dental examination Z01.20 [facility] [address] [facility] [place] [id number] [address] [place] [phone] Feb, Schizoaffective disorder, de pressive type F25.1 [facility] [address] [facility] [place] [id number] [address] [place] [phone] Feb, Schizoaffective disorder, de pressive type F25.1 [facility] [address] [facility] [place] [id number] [address] [place] [phone] Feb, [facility] [address] [facility] [place] [id number] [address] [place] [phone] Feb, Schizoaffective disorder, de pressive type F25.1 [facility] [address] [facility] [place] [id number] [address] [place] [phone] Jan, Schizoaffective disorder, de pressive type F25.1 [facility] [address] [facility] [place] [id number] [address] [place] [phone] Jan, Well woman exam with routine gynecological exam Z01.419 [facility] [address] [id number] [address] [place] [phone] Jan, Schizoaffective disorder, de pressive type F25.1 [facility] [address] [id number] [address] [place] [address] [id number] Dec, Encounter for dental examina tion and cleaning without abnormal findings Z01.20 [facility] [address] [id number] [place] [id number] Dec, Dental examination Z01.20 [facility] [address] [id number] [address] [place] [phone] Dec, Schizoaffective disorder, de pressive type F25.1 [facility] [address] [id number] [address] [place] [phone] Oct, Schizoaffective disorder, de pressive type F25.1 [facility] [address] [id number] [address] [place] [phone] Oct, Schizoaffective disorder, de pressive type F25.1 [facility] [address] [id number] [address] [place] [address] [id number] Sep, Dental examination Z01.20 [facility] [address] [id number] [address] [place] [phone] Aug, Schizoaffective disorder, de pressive type F25.1 [facility] [address] [id number] [address] [place] [phone] Jul, Schizoaffective disorder, de pressive type F25.1 [facility] [address] [id number] [address] [place] [address] [id number] Jun, Encounter for dental examina tion and cleaning without abnormal findings Z01.20 [facility] [address] [id number] [place] [id number] Jun, Dental examination Z01.20 [facility] [address] [id number] [address] [place] [phone] Mar, Dental examination Z01.20 [facility] [address] [id number] [address] [place] [address] [phone] Feb, Encounter for dental examina tion and cleaning without abnormal findings Z01.20 [facility] [address] [id number] [place] [id number] November, Encounter for dental examination Z01.20 [facility] [address] [id number] [place] [id number] Oct, Dental examination Z01.20 [facility] [address] [id number] [address] [place] [address] [id number] Oct, Encounter for dental examina tion and cleaning without abnormal findings Z01.20 [facility] [address] [id number] [address] [place] [address] [id number] Jul, Dental examination Z01.20 [facility] [address] [id number] [address] [place] [address] [id number] May, Encounter for dental examina tion Z01.20 [facility] [address] [id number] [address] [place] [address] [phone] Jan, Dental examination V72.2 IMMUNIZATIONS No Known Immunizations SOCIAL HISTORY Never Assessed REASON FOR VISIT PLAN OF CARE Activity Details Follow Up prn Reason: VITAL SIGNS MEDICATIONS Medication Instructions Dosage Frequency Start Date End Date Duration S tatus Loratadine 10 MG Orally Once a day 1 tablet 24h Active Imipramine HCl 10 mg Orally Once a day 2 tablets at bedtime 24h Active Aspirin 325 MG Orally Once a day 1 tablet 24h Active Depo-Provera 150 MG/ML 1 ml A ctive Lorazepam 1 MG Orally Once a day 1 tablet at bedtime as needed 24h 30 days Active Topamax 25 MG Orally Once a day 1 tablet 24h 30 days Active Docusate Sodium 100 mg Orally twice a day 1 capsule as needed 12h Active Levothyroxine Sodium 88 MCG Orally Once a day 1 tablet 24h Active Acetaminophen 325 MG Orally every 6 hrs 1 tablet as needed 6h Active Latuda 80 MG Orally Once a day 1 tablet with food 24h 30 days Active Oxybutynin Chloride 5 mg Orally Once a day 1 tablet 24h Active Depakote ER 500 mg Orally 2 times a day 2 tablets 12h 25 Oct, 2016 30 days Active Zovirax 5 % Externally every 3 hrs 1 application to affected area 3h Not-Taking RESULTS No Results PROCEDURES Procedure Date Ordered Result Body Site PROPHYLAXIS - ADULT October 21, 2017 TOPICAL FLUORIDE VARNISH October 21, 2017 INSTRUCTIONS MEDICATIONS ADMINISTERED No Known Medications
--- OUTSIDE RECORDS SUMMARY | 2019-09-20 23:28 | XMS REPORT ---
Author Author Afshan OLIVO [address] Address [address] [place] [address] Care Team Providers Care Robot Operator Name Role Phone INÉS OLIVOJAYCE Unavailable PROBLEMS Type Condition ICD9-CM Code DUD42-GJ Code Onset Dates Condition S tatus SNOMED Code Problem Schizoaffective disorder, depressive type F25.1 Active 54978732 ALLERGIES Substance Reaction Event Type Date Status Risperidone Unknown Drug Allergy November, Active Risperdal Unknown Drug Allergy November, Active ENCOUNTERS Encounter Location Date Diagnosis [place] [address] [id number] [address] [place] [phone] May, [place] [address] [id number] [address] [place] [phone] Apr, [place] [address] [phone] Feb, Schizoaffective disorder, de pressive type F25.1 [facility] [address] [place] [phone] Feb, Schizoaffective disorder, de pressive type F25.1 [facility] [address] [id number] [address] [place] [phone] 08 Feb, 2018 Schizoaffective disorder, de pressive type F25.1 and BMI 40.0-44.9, adult Z68.41 [facility] [address] [id number] [address] [place] [address] [id number] 07 Feb, 2018 Dental examination Z01.20 [facility] [address] [id number] [address] [place] [phone] Jan, [facility] [address] [place] [phone] Jan, Schizoaffective disorder, de pressive type F25.1 and BMI 40.0-44.9, adult Z68.41 [facility] [address] [facility] [id number] [address] [place] [phone] Dec, Schizoaffective disorder, de pressive type F25.1 [facility] [address] [facility] [id number] [address] [place] [phone] November, Schizoaffective disorder, de pressive type F25.1 and BMI 40.0-44.9, adult Z68.41 [facility] [address] [facility] [id number] [address] [place] [phone] Oct, Schizoaffective disorder, de pressive type F25.1 [facility] [address] [id number] [address] [place] [address] [phone] Oct, Dental examination Z01.20 [facility] [address] [facility] [id number] [address] [place] [phone] Sep, Schizoaffective disorder, de pressive type F25.1 [facility] [address] [facility] [id number] [address] [place] [phone] Aug, Schizoaffective disorder, de pressive type F25.1 and BMI 40.0-44.9, adult Z68.41 [facility] [address] [facility] [id number] [address] [place] [phone] Jul, Schizoaffective disorder, de pressive type F25.1 [facility] [address] [facility] [id number] [address] [place] [phone] Jul, Schizoaffective disorder, de pressive type F25.1 [facility] [address] [facility] [id number] [address] [place] [phone] Jul, Schizoaffective disorder, de pressive type F25.1 [facility] [address] [id number] [address] [place] [address] [id number] Jul, Dental examination Z01.20 [facility] [address] [id number] [address] [place] [address] [phone] Jul, Dental examination Z01.20 [facility] [address] [facility] [id number] [address] [place] [phone] Jun, Schizoaffective disorder, de pressive type F25.1 [facility] [address] [facility] [id number] [address] [place] [phone] May, Schizoaffective disorder, de pressive type F25.1 and BMI 40.0-44.9, adult Z68.41 [facility] [address] [facility] [id number] [address] [place] [phone] Apr, Schizoaffective disorder, de pressive type F25.1 [facility] [address] [facility] [id number] [address] [place] [phone] Mar, Schizoaffective disorder, de pressive type F25.1 [facility] [address] [id number] [address] [place] [address] [phone] Mar, Dental examination Z01.20 [place] [address] [facility] [id number] [place] [address] [phone] Feb, Dental examination Z01.20 [facility] [address] [facility] [id number] [address] [place] [phone] Feb, Schizoaffective disorder, de pressive type F25.1 [facility] [address] [facility] [id number] [address] [place] [phone] Feb, Schizoaffective disorder, de pressive type F25.1 [facility] [address] [facility] [id number] [address] [place] [phone] Feb, [facility] [address] [facility] [id number] [address] [place] [phone] Feb, Schizoaffective disorder, de pressive type F25.1 [facility] [address] [id number] [address] [place] [phone] Jan, Schizoaffective disorder, de pressive type F25.1 [facility] [address] [id number] [address] [place] [phone] Jan, Well woman exam with routine gynecological exam Z01.419 [facility] [address] [id number] [address] [place] [phone] Jan, Schizoaffective disorder, de pressive type F25.1 [facility] [address] [id number] [address] [place] [address] [phone] Dec, Encounter for dental examina tion and cleaning without abnormal findings Z01.20 [facility] [address] [facility] [id number] [place] [id number] Dec, Dental examination Z01.20 [facility] [address] [id number] [address] [place] [phone] Dec, Schizoaffective disorder, de pressive type F25.1 [facility] [address] [id number] [address] [place] [phone] Oct, Schizoaffective disorder, de pressive type F25.1 [facility] [address] [id number] [address] [place] [phone] Oct, Schizoaffective disorder, de pressive type F25.1 [facility] [address] [id number] [address] [place] [address] [phone] Sep, Dental examination Z01.20 [facility] [address] [id number] [address] [place] [phone] Aug, Schizoaffective disorder, de pressive type F25.1 [facility] [address] [id number] [address] [place] [phone] Jul, Schizoaffective disorder, de pressive type F25.1 [facility] [address] [id number] [address] [place] [address] [phone] Jun, Encounter for dental examina tion and cleaning without abnormal findings Z01.20 [facility] [address] [facility] [id number] [place] [id number] Jun, Dental examination Z01.20 [facility] [address] [id number] [address] [place] [phone] Mar, Dental examination Z01.20 [facility] [address] [id number] [address] [place] [address] [phone] Feb, Encounter for dental examina tion and cleaning without abnormal findings Z01.20 [facility] [address] [id number] [id number] November, Encounter for dental examination Z01.20 [facility] [address] [facility] [id number] [place] [phone] Oct, Dental examination Z01.20 [facility] [address] [id number] [address] [place] [address] [phone] Oct, Encounter for dental examina tion and cleaning without abnormal findings Z01.20 [facility] [address] [id number] [address] [place] [address] [id number] Jul, Dental examination Z01.20 [facility] [address] [id number] [address] [place] [address] [phone] May, Encounter for dental examina tion Z01.20 [facility] [address] [id number] [address] [place] [address] [phone] Jan, Dental examination V72.2 IMMUNIZATIONS No Known Immunizations SOCIAL HISTORY Never Assessed REASON FOR VISIT BH f/u hearing voices. JjournotRN PLAN OF CARE Activity Details Follow Up 6 Weeks Reason: VITAL SIGNS Height 64.3 in 2017-11-27 Weight 240.7 lbs 2017-11-27 Heart Rate 76 bpm 2017-11-27 Respiratory Rate 22 2017-11-27 BMI 40.93 kg/m2 2017-11-27 Blood pressure systolic 124 mmHg 2017-11-27 Blood pressure diastolic 76 mmHg 2017-11-27 MEDICATIONS Medication Instructions Dosage Frequency Start Date End Date Duration S tatus Latuda 80 MG Orally Once a day 1 tablet with food 24h 30 days Active Oxybutynin Chloride 5 mg Orally Once a day 1 tablet 24h Active Topamax 25 MG Orally Once a day 1 tablet 24h 30 days Active Depakote ER 500 mg Orally 2 times a day 2 tablets 12h 30 days Active Latuda 20 mg Orally Once a day 1 tablet with food 24h November, 30 day(s) Active Docusate Sodium 100 mg Orally twice a day 1 capsule as needed 12h Active Loratadine 10 MG Orally Once a day 1 tablet 24h Active Imipramine HCl 10 mg Orally Once a day 2 tablets at bedtime 24h Active Aspirin 325 MG Orally Once a day 1 tablet 24h Active Levothyroxine Sodium 88 MCG Orally Once a day 1 tablet 24h Active Depo-Provera 150 MG/ML 1 ml A ctive Lorazepam 1 MG Orally Once a day 1 tablet at bedtime as needed 24h 30 days Active Zovirax 5 % Externally every 3 hrs 1 application to affected area 3h Not-Taking Acetaminophen 325 MG Orally every 6 hrs 1 tablet as needed 6h Active RESULTS No Results PROCEDURES Procedure Date Ordered Result Body Site [facility] VISIT ESTABLISHED PATIENT November 27, 2017 INSTRUCTIONS MEDICATIONS ADMINISTERED No Known Medications
--- OUTSIDE RECORDS SUMMARY | 2019-09-20 23:28 | XMS REPORT ---
Author Author Afshan BASS Organization [facility] Address [address] [place] [address] Care Team Providers Care Application Engineer Name Role Phone JOHN BASS Unavailable PROBLEMS Type Condition ICD9-CM Code ZCJ36-PS Code Onset Dates Condition S tatus SNOMED Code Problem Schizoaffective disorder, depressive type F25.1 Active [id number] ALLERGIES No Information ENCOUNTERS Encounter Location Date Diagnosis [facility] [address] [id number] [address] [place] [phone] May, [facility] [address] [id number] [address] [place] [phone] Apr, [facility] [address] [id number] [address] [place] [phone] Mar, [facility] [address] [phone] 15 Feb, 2018 Schizoaffective disorder, de pressive type F25.1 [facility] [address] [id number] [address] [place] [phone] Feb, Schizoaffective disorder, de pressive type F25.1 [facility] [address] [address] [id number] [address] [place] [phone] 08 Feb, 2018 Schizoaffective disorder, de pressive type F25.1 and BMI 40.0-44.9, adult Z68.41 [facility] [address] [id number] [address] [place] [address] [id number] 07 Feb, 2018 Dental examination Z01.20 [facility] [address] [facility] [id number] [address] [place] [phone] Jan, [facility] [address] [facility] [id number] [address] [place] [phone] Jan, Schizoaffective disorder, de pressive type F25.1 and BMI 40.0-44.9, adult Z68.41 [facility] [address] [facility] [id number] [address] [place] [phone] Dec, Schizoaffective disorder, de pressive type F25.1 [facility] [address] [facility] [id number] [address] [place] [phone] November, Schizoaffective disorder, de pressive type F25.1 and BMI 40.0-44.9, adult Z68.41 [facility] [address] [facility] [id number] [address] [place] [phone] Oct, Schizoaffective disorder, de pressive type F25.1 [facility] [address] [facility] [id number] [address] [place] [address] [phone] Oct, Dental examination Z01.20 [facility] [address] [facility] [id number] [address] [place] [phone] Sep, Schizoaffective disorder, de pressive type F25.1 [facility] [address] [facility] [id number] [address] [place] [phone] Aug, Schizoaffective disorder, de pressive type F25.1 and BMI 40.0-44.9, adult Z68.41 [facility] [address] [facility] [id number] [address] [place] [phone] Jul, Schizoaffective disorder, de pressive type F25.1 [facility] [address] [facility] [id number] [address] [place] [phone] Jul, Schizoaffective disorder, de pressive type F25.1 [facility] [address] [facility] [id number] [address] [place] [phone] Jul, Schizoaffective disorder, de pressive type F25.1 [facility] [address] [id number] [address] [place] [address] [id number] Jul, Dental examination Z01.20 [facility] [address] [id number] [address] [place] [address] [id number] Jul, Dental examination Z01.20 [facility] [address] [id number] [address] [place] [phone] Jun, Schizoaffective disorder, de pressive type F25.1 [facility] [address] [id number] [address] [place] [phone] May, Schizoaffective disorder, de pressive type F25.1 and BMI 40.0-44.9, adult Z68.41 [facility] [address] [id number] [address] [place] [phone] Apr, Schizoaffective disorder, de pressive type F25.1 [facility] [address] [facility] [id number] [address] [place] [phone] Mar, Schizoaffective disorder, de pressive type F25.1 [facility] [address] [id number] [address] [place] [address] [phone] Mar, Dental examination Z01.20 [place] [address] [facility] [id number] [place] [address] [phone] Feb, Dental examination Z01.20 [facility] [address] [facility] [id number] [address] [place] [phone] Feb, Schizoaffective disorder, de pressive type F25.1 [facility] [address] [id number] [address] [place] [phone] Feb, Schizoaffective disorder, de pressive type F25.1 [facility] [address] [id number] [address] [place] [phone] Feb, [facility] [address] [id number] [address] [place] [phone] Feb, Schizoaffective disorder, de pressive type F25.1 [facility] [address] [id number] [address] [place] [phone] Jan, Schizoaffective disorder, de pressive type F25.1 [facility] [address] [id number] [address] [place] [phone] Jan, Well woman exam with routine gynecological exam Z01.419 [facility] [address] [id number] [address] [place] [phone] Jan, Schizoaffective disorder, de pressive type F25.1 [facility] [address] [id number] [address] [place] [address] [id number] Dec, Encounter for dental examina tion and cleaning without abnormal findings Z01.20 [place] [address] [facility] [id number] [place] [id number] Dec, Dental examination Z01.20 [facility] [address] [id number] [address] [place] [phone] Dec, Schizoaffective disorder, de pressive type F25.1 [facility] [address] [id number] [address] [place] [phone] Oct, Schizoaffective disorder, de pressive type F25.1 [facility] [address] [id number] [address] [place] [phone] Oct, Schizoaffective disorder, de pressive type F25.1 [facility] [address] [id number] [address] [place] [address] [phone] Sep, Dental examination Z01.20 [facility] [address] [id number] [address] [place] [phone] Aug, Schizoaffective disorder, de pressive type F25.1 [facility] [address] [id number] [address] [place] [phone] Jul, Schizoaffective disorder, de pressive type F25.1 [facility] [address] [id number] [address] [place] [address] [id number] Jun, Encounter for dental examina tion and cleaning without abnormal findings Z01.20 [facility] [address] [id number] [id number] Jun, Dental examination Z01.20 [facility] [address] [id number] [address] [place] [phone] Mar, Dental examination Z01.20 [facility] [address] [id number] [address] [place] [address] [id number] Feb, Encounter for dental examina tion and cleaning without abnormal findings Z01.20 [facility] [address] [facility] [address] [id number] [place] [id number] November, Encounter for dental examination Z01.20 [facility] [address] [facility] [address] [id number] [place] [id number] Oct, Dental examination Z01.20 [facility] [address] [id number] [address] [place] [address] [phone] Oct, Encounter for dental examina tion and cleaning without abnormal findings Z01.20 [facility] [address] [id number] [address] [place] [address] [id number] Jul, Dental examination Z01.20 [facility] [address] [id number] [address] [place] [address] [id number] May, Encounter for dental examina tion Z01.20 [facility] [address] [id number] [address] [place] [address] [phone] Jan, Dental examination V72.2 IMMUNIZATIONS No Known Immunizations SOCIAL HISTORY Never Assessed REASON FOR VISIT f/u PLAN OF CARE Activity Details Follow Up 4 Months, prn Reason: VITAL SIGNS MEDICATIONS Unknown Medications RESULTS No Results PROCEDURES Procedure Date Ordered Result Body Site [facility] VISIT MENTAL HEALTH ESTAB PT January 01, 2018 Psychotherapy, patient &/family, 30 minutes, established pat ient January 01, 2018 INSTRUCTIONS MEDICATIONS ADMINISTERED No Known Medications
--- OUTSIDE RECORDS SUMMARY | 2019-09-20 23:28 | XMS REPORT ---
Author Author Afshan SOTO Organization [facility] Address [address] [place] [address] Care Team Providers Care Drier Attendant Name Role Phone MARY ANN SOTO Unavailable PROBLEMS Type Condition ICD9-CM Code [id number] Code Onset Dates Condition S tatus SNOMED Code Problem Bipolar affective disorder, current episode hypomanic F31.0 Active 74356551 Problem Schizoaffective disorder, depressive type F25.1 Active [id number] ALLERGIES Substance Reaction Event Type Date Status Risperidone Unknown Drug Allergy Feb, Active Risperdal Unknown Drug Allergy Feb, Active ENCOUNTERS Encounter Location Date Diagnosis [place] [address] [id number] [address] [place] [phone] May, [facility] [address] [id number] [address] [place] [phone] Apr, [facility] [address] [id number] [address] [place] [phone] Apr, [facility] [address] [id number] [address] [place] [phone] Mar, Schizoaffective disorder, de pressive type F25.1 and Bipolar affective disorder, current episode hypomanic F31.0 [facility] [address] [facility] [id number] [address] [place] [phone] Feb, Schizoaffective disorder, de pressive type F25.1 [facility] [address] [facility] [id number] [address] [place] [phone] Feb, Schizoaffective disorder, de pressive type F25.1 [facility] [address] [id number] [address] [place] [phone] Feb, Schizoaffective disorder, de pressive type F25.1 and BMI 40.0-44.9, adult Z68.41 [facility] [address] [id number] [address] [place] [address] [phone] Feb, Dental examination Z01.20 [facility] [address] [id number] [address] [place] [phone] Jan, [facility] [address] [id number] [address] [place] [phone] Jan, Schizoaffective disorder, de pressive type F25.1 and BMI 40.0-44.9, adult Z68.41 [facility] [address] [id number] [address] [place] [phone] Dec, Schizoaffective disorder, de pressive type F25.1 [facility] [address] [id number] [address] [place] [phone] November, Schizoaffective disorder, de pressive type F25.1 and BMI 40.0-44.9, adult Z68.41 [facility] [address] [id number] [address] [place] [phone] Oct, Schizoaffective disorder, de pressive type F25.1 [facility] [address] [id number] [address] [place] [address] [phone] Oct, Dental examination Z01.20 [facility] [address] [id number] [address] [place] [phone] Sep, Schizoaffective disorder, de pressive type F25.1 [facility] [address] [id number] [address] [place] [phone] Aug, Schizoaffective disorder, de pressive type F25.1 and BMI 40.0-44.9, adult Z68.41 [facility] [address] [id number] [address] [place] [phone] Jul, Schizoaffective disorder, de pressive type F25.1 [facility] [address] [id number] [address] [place] [phone] Jul, Schizoaffective disorder, de pressive type F25.1 [facility] [address] [id number] [address] [place] [phone] Jul, Schizoaffective disorder, de pressive type F25.1 [facility] [address] [id number] [address] [place] [address] [phone] Jul, Dental examination Z01.20 [facility] [address] [id number] [address] [place] [address] [phone] Jul, Dental examination Z01.20 [facility] [address] [facility] [id number] [address] [place] [phone] Jun, Schizoaffective disorder, de pressive type F25.1 [facility] [address] [id number] [address] [place] [phone] May, Schizoaffective disorder, de pressive type F25.1 and BMI 40.0-44.9, adult Z68.41 [facility] [address] [id number] [address] [place] [phone] Apr, Schizoaffective disorder, de pressive type F25.1 [facility] [address] [facility] [id number] [address] [place] [phone] Mar, Schizoaffective disorder, de pressive type F25.1 [facility] [address] [id number] [address] [place] [address] [phone] Mar, Dental examination Z01.20 [facility] [address] [address] [facility] [id number] [place] [address] [phone] Feb, Dental examination Z01.20 [facility] [address] [facility] [id number] [address] [place] [phone] Feb, Schizoaffective disorder, de pressive type F25.1 [facility] [address] [id number] [address] [place] [phone] Feb, Schizoaffective disorder, de pressive type F25.1 [facility] [address] [facility] [id number] [address] [place] [phone] Feb, [facility] [address] [facility] [id number] [address] [place] [phone] Feb, Schizoaffective disorder, de pressive type F25.1 [facility] [address] [facility] [id number] [address] [place] [phone] Jan, Schizoaffective disorder, de pressive type F25.1 [facility] [address] [facility] [id number] [address] [place] [phone] Jan, Well woman exam with routine gynecological exam Z01.419 [facility] [address] [facility] [id number] [address] [place] [phone] Jan, Schizoaffective disorder, de pressive type F25.[address] [place] [id number] [place] [address] [phone] Dec, Dental examination Z01.20 [facility] [address] [id number] [address] [place] [address] [phone] Dec, Encounter for dental examina tion and cleaning without abnormal findings Z01.20 [facility] [address] [facility] [id number] [address] [place] [phone] Dec, Schizoaffective disorder, de pressive type F25.1 [facility] [address] [id number] [address] [place] [phone] Oct, Schizoaffective disorder, de pressive type F25.1 [facility] [address] [facility] [id number] [address] [place] [phone] Oct, Schizoaffective disorder, de pressive type F25.1 [facility] [address] [id number] [address] [place] [address] [phone] Sep, Dental examination Z01.20 [facility] [address] [id number] [address] [place] [phone] Aug, Schizoaffective disorder, de pressive type F25.1 [facility] [address] [id number] [address] [place] [phone] Jul, Schizoaffective disorder, de pressive type F25.1 [facility] [address] [id number] [address] [place] [address] [phone] Jun, Encounter for dental examina tion and cleaning without abnormal findings Z01.20 [facility] [address] [id number] [phone] Jun, Dental examination Z01.20 [facility] [address] [id number] [address] [place] [phone] Mar, Dental examination Z01.20 [facility] [address] [id number] [address] [place] [address] [phone] Feb, Encounter for dental examina tion and cleaning without abnormal findings Z01.20 [facility] [address] [id number] [phone] November, Encounter for dental examination Z01.20 [facility] [address] [id number] [phone] Oct, Dental examination Z01.20 [facility] [address] [id number] [address] [place] [address] [phone] Oct, Encounter for dental examina tion and cleaning without abnormal findings Z01.20 [facility] [address] [id number] [address] [place] [address] [phone] Jul, Dental examination Z01.20 [facility] [address] [id number] [address] [place] [address] [phone] May, Encounter for dental examina tion Z01.20 [facility] [address] [id number] [address] [place] [address] [phone] Jan, Dental examination V72.2 IMMUNIZATIONS No Known Immunizations SOCIAL HISTORY Never Assessed REASON FOR VISIT ADULT OUTREACH CLASS [facility] PLAN OF CARE Activity Details Follow Up prn Reason:restorative VITAL SIGNS MEDICATIONS Medication Instructions Dosage Frequency Start Date End Date Duration S tatus Latuda 80 MG Orally Once a day 1 tablet with food 24h 30 days Active Oxybutynin Chloride 5 mg Orally Once a day 1 tablet 24h Active Topamax 25 MG Orally Once a day 1 tablet 24h 30 days Active Lorazepam 1 MG Orally Once a day 1 tablet at bedtime as needed 24h 30 days Active Imipramine HCl 10 mg Orally Once a day 2 tablets at bedtime 24h Active Zovirax 5 % Externally every 3 hrs 1 application to affected area 3h Not-Taking Depo-Provera 150 MG/ML 1 ml A ctive Aspirin 325 MG Orally Once a day 1 tablet 24h Active Levothyroxine Sodium 88 MCG Orally Once a day 1 tablet 24h Active Vol-Plus 27-1 MG Orally Once a day 1 tablet 24h Jan, 30 day(s) Active Acetaminophen 325 MG Orally every 6 hrs 1 tablet as needed 6h Active Depakote ER 500 mg Orally 2 times a day 1 tablets in the Am and 2 a t night 12h 30 days Active Latuda 20 mg Orally Once a day 1 tablet with food 24h November, 30 days Active Docusate Sodium 100 mg Orally twice a day 1 capsule as needed 12h Active Loratadine 10 MG Orally Once a day 1 tablet 24h Active RESULTS No Results PROCEDURES Procedure Date Ordered Result Body Site PERIODIC ORAL EXAMINATION Feb 09, 2018 INTRAORL-PERIAPICAL 1 FILM [id number] Feb 09, 2018 TOPICAL FLUORIDE VARNISH Feb 09, 2018 INTRAORL-PERIAPICAL EA ADD FILM Feb 09, 2018 INTRAORL-PERIAPICAL EA ADD FILM Feb 09, 2018 PROPHYLAXIS - ADULT Feb 09, 2018 INTRAORL-PERIAPICAL EA ADD FILM Feb 09, 2018 INSTRUCTIONS MEDICATIONS ADMINISTERED No Known Medications
--- OUTSIDE RECORDS SUMMARY | 2019-09-20 23:28 | XMS REPORT ---
Author Author Afshan OLIVO [facility] [address] Address [address] [place] [address] Care Team Providers Care Thermodynamicist Name Role Phone PALLAVI, DAWJAYCE Unavailable PROBLEMS Type Condition ICD9-CM Code FEV39-SJ Code Onset Dates Condition S tatus SNOMED Code Problem Schizoaffective disorder, depressive type F25.1 Active [id number] ALLERGIES No Information ENCOUNTERS Encounter Location Date Diagnosis [place] [address] [id number] [address] [place] [phone] Apr, [place] [address] [place] [address] [id number] [address] [place] [phone] Feb, [address] [id number] [place] [address] [id number] Feb, [place] [address] [id number] [address] [place] [phone] Jan, [place] [address] [id number] [address] [place] [phone] Jan, Schizoaffective disorder, de pressive type F25.1 and BMI 40.0-44.9, adult Z68.41 [facility] [address] [id number] [address] [place] [phone] Dec, Schizoaffective disorder, de pressive type F25.1 [place] [address] [id number] [address] [place] [phone] November, Schizoaffective disorder, de pressive type F25.1 and BMI 40.0-44.9, adult Z68.41 [facility] [address] [id number] [address] [place] [phone] Oct, Schizoaffective disorder, de pressive type F25.1 [facility] [address] [id number] [address] [place] [address] [phone] Oct, Dental examination Z01.20 [facility] [address] [id number] [address] [place] [phone] Sep, Schizoaffective disorder, de pressive type F25.1 [facility] [address] [id number] [address] [place] [phone] Aug, Schizoaffective disorder, de pressive type F25.1 and BMI 40.0-44.9, adult Z68.41 [facility] [address] [id number] [address] [place] [phone] Jul, Schizoaffective disorder, de pressive type F25.1 [facility] [address] [id number] [address] [place] [phone] Jul, Schizoaffective disorder, de pressive type F25.1 [facility] [address] [id number] [address] [place] [phone] Jul, Schizoaffective disorder, de pressive type F25.1 [facility] [address] [id number] [address] [place] [address] [phone] Jul, Dental examination Z01.20 [facility] [address] [id number] [address] [place] [address] [phone] Jul, Dental examination Z01.20 [facility] [address] [id number] [address] [place] [phone] Jun, Schizoaffective disorder, de pressive type F25.1 [facility] [address] [facility] [id number] [address] [place] [phone] May, Schizoaffective disorder, de pressive type F25.1 and BMI 40.0-44.9, adult Z68.41 [facility] [address] [id number] [address] [place] [phone] Apr, Schizoaffective disorder, de pressive type F25.1 [facility] [address] [id number] [address] [place] [phone] Mar, Schizoaffective disorder, de pressive type F25.1 [facility] [address] [id number] [address] [place] [address] [id number] 07 Mar, 2017 Dental examination Z01.[address] [id number] [id number] 30 Feb, 2017 Dental examination Z01.20 [facility] [address] [id number] [address] [place] [phone] Feb, Schizoaffective disorder, de pressive type F25.1 [facility] [address] [id number] [address] [place] [phone] Feb, Schizoaffective disorder, de pressive type F25.1 [facility] [address] [id number] [address] [place] [phone] Feb, [facility] [address] [id number] [address] [place] [phone] Feb, Schizoaffective disorder, de pressive type F25.1 [facility] [address] [id number] [address] [place] [phone] Jan, Schizoaffective disorder, de pressive type F25.1 [facility] [address] [id number] [address] [place] [phone] Jan, Well woman exam with routine gynecological exam Z01.419 [facility] [address] [id number] [address] [place] [phone] 05 Jan, 2017 Schizoaffective disorder, de pressive type F25.1 [facility] [address] [id number] [address] [place] [address] [id number] 27 Dec, 2016 Encounter for dental examina tion and cleaning without abnormal findings Z01.20 [facility] [address] [id number] [id number] Dec, Dental examination Z01.20 [facility] [address] [id number] [address] [place] [phone] Dec, Schizoaffective disorder, de pressive type F25.1 [facility] [address] [id number] [address] [place] [phone] Oct, Schizoaffective disorder, de pressive type F25.1 [facility] [address] [id number] [address] [place] [phone] Oct, Schizoaffective disorder, de pressive type F25.1 [facility] [address] [id number] [address] [place] [address] [phone] Sep, Dental examination Z01.20 [facility] [address] [id number] [address] [place] [phone] Aug, Schizoaffective disorder, de pressive type F25.1 [facility] [address] [id number] [address] [place] [phone] Jul, Schizoaffective disorder, de pressive type F25.1 [facility] [address] [id number] [address] [place] [address] [phone] Jun, Encounter for dental examina tion and cleaning without abnormal findings Z01.20 [facility] [address] [id number] [id number] Jun, Dental examination Z01.20 [facility] [address] [id number] [address] [place] [phone] Mar, Dental examination Z01.20 [facility] [address] [id number] [address] [place] [address] [phone] Feb, Encounter for dental examina tion and cleaning without abnormal findings Z01.20 [facility] [address] [id number] [phone] November, Encounter for dental examination Z01.[address] [facility] [address] [id number] [place] [phone] Oct, Dental examination Z01.20 [facility] [address] [id number] [address] [place] [address] [id number] Oct, Encounter for dental examina tion and cleaning without abnormal findings Z01.20 [facility] [address] [id number] [address] [place] [address] [phone] Jul, Dental examination Z01.20 [facility] [address] [id number] [address] [place] [address] [phone] May, Encounter for dental examina tion Z01.20 [facility] [address] [id number] [address] [place] [address] [phone] Jan, Dental examination V72.2 IMMUNIZATIONS No Known Immunizations SOCIAL HISTORY Never Assessed [facility]AN OF CARE VITAL SIGNS MEDICATIONS Medication Instructions Dosage Frequency Start Date End Date Duration S danyaus Lorazepam 1 MG Orally Once a day 1 tablet at bedtime as needed 24h 30 days Active RESULTS No Results PROCEDURES No Known procedures INSTRUCTIONS MEDICATIONS ADMINISTERED No Known Medications
--- OUTSIDE RECORDS SUMMARY | 2019-09-20 23:28 | XMS REPORT ---
Author Author Afshan OLIVO Organization [facility] [address] Address [address] [place] [address] Care Team Providers Care Filing Machine Operator Name Role Phone MICHELLE OLIVO Unavailable PROBLEMS Type Condition ICD9-CM Code AHD90-BQ Code Onset Dates Condition S tatus SNOMED Code Problem Bipolar affective disorder, current episode hypomanic F31.0 Active 22730263 Problem Schizoaffective disorder, depressive type F25.1 Active 24318885 ALLERGIES No Information ENCOUNTERS Encounter Location Date Diagnosis [place] [address] [place] [id number] [address] [place] [phone] May, [place] [address] [place] [id number] [address] [place] [phone] Apr, [place] [address] [place] [id number] [address] [place] [phone] Apr, [place] [address] [place] [id number] [address] [place] [phone] Mar, Schizoaffective disorder, de pressive type F25.1 and Bipolar affective disorder, current episode hypomanic F31.0 [place] [address] [place] [id number] [address] [place] [phone] Feb, Schizoaffective disorder, de pressive type F25.1 [place] [address] [address] [facility] [id number] [address] [place] [phone] Feb, Schizoaffective disorder, de pressive type F25.1 [place] [address] [address] [facility] [id number] [address] [place] [phone] Feb, Schizoaffective disorder, de pressive type F25.1 and BMI 40.0-44.9, adult Z68.41 [facility] [address] [id number] [place] [id number] Feb, Dental examination Z01.20 [facility] [address] [id number] [address] [place] [phone] Jan, [facility] [address] [id number] [address] [place] [phone] Jan, Schizoaffective disorder, de pressive type F25.1 and BMI 40.0-44.9, adult Z68.41 [facility] [address] [id number] [address] [place] [phone] Dec, Schizoaffective disorder, de pressive type F25.1 [facility] [address] [id number] [address] [place] [phone] November, Schizoaffective disorder, de pressive type F25.1 and BMI 40.0-44.9, adult Z68.41 [facility] [address] [id number] [address] [place] [phone] Oct, Schizoaffective disorder, de pressive type F25.1 [facility] [address] [id number] [address] [place] [address] [phone] Oct, Dental examination Z01.20 [facility] [address] [id number] [address] [place] [phone] Sep, Schizoaffective disorder, de pressive type F25.1 [facility] [address] [id number] [address] [place] [phone] Aug, Schizoaffective disorder, de pressive type F25.1 and BMI 40.0-44.9, adult Z68.41 [facility] [address] [id number] [address] [place] [phone] Jul, Schizoaffective disorder, de pressive type F25.1 [facility] [address] [id number] [address] [place] [phone] Jul, Schizoaffective disorder, de pressive type F25.1 [facility] [address] [id number] [address] [place] [phone] Jul, Schizoaffective disorder, de pressive type F25.1 [facility] [address] [id number] [address] [place] [address] [phone] Jul, Dental examination Z01.20 [facility] [address] [id number] [address] [place] [address] [phone] Jul, Dental examination Z01.20 [facility] [address] [id number] [address] [place] [phone] Jun, Schizoaffective disorder, de pressive type F25.1 [facility] [address] [id number] [address] [place] [phone] May, Schizoaffective disorder, de pressive type F25.1 and BMI 40.0-44.9, adult Z68.41 [facility] [address] [facility] [id number] [address] [place] [phone] Apr, Schizoaffective disorder, de pressive type F25.1 [facility] [address] [facility] [id number] [address] [place] [phone] Mar, Schizoaffective disorder, de pressive type F25.1 [facility] [address] [id number] [address] [place] [address] [phone] Mar, Dental examination Z01.20 [facility] [id number] [place] [address] [phone] Feb, Dental examination Z01.20 [facility] [address] [id number] [address] [place] [phone] Feb, Schizoaffective disorder, de pressive type F25.1 [facility] [address] [facility] [id number] [address] [place] [phone] Feb, Schizoaffective disorder, de pressive type F25.1 [facility] [address] [id number] [address] [place] [phone] Feb, [facility] [address] [id number] [address] [place] [phone] Feb, Schizoaffective disorder, de pressive type F25.1 [facility] [address] [id number] [address] [place] [phone] Jan, Schizoaffective disorder, de pressive type F25.1 [facility] [address] [id number] [address] [place] [phone] Jan, Well woman exam with routine gynecological exam Z01.419 [facility] [address] [id number] [address] [place] [phone] Jan, Schizoaffective disorder, de pressive type F25.1 [facility] [address] [id number] [address] [place] [address] [phone] Dec, Encounter for dental examina tion and cleaning without abnormal findings Z01.[id number] [place] [address] [phone] Dec, Dental examination Z01.20 [facility] [address] [id number] [address] [place] [phone] Dec, Schizoaffective disorder, de pressive type F25.1 [facility] [address] [id number] [address] [place] [phone] Oct, Schizoaffective disorder, de pressive type F25.1 [facility] [address] [id number] [address] [place] [phone] Oct, Schizoaffective disorder, de pressive type F25.1 [facility] [address] [id number] [address] [place] [address] [phone] Sep, Dental examination Z01.20 [facility] [address] [id number] [address] [place] [phone] 08 Aug, 2016 Schizoaffective disorder, de pressive type F25.1 [facility] [address] [id number] [address] [place] [phone] Jul, Schizoaffective disorder, de pressive type F25.1 [facility] [address] [id number] [address] [place] [address] [phone] Jun, Encounter for dental examina tion and cleaning without abnormal findings Z01.20 [facility] [address] [id number] [phone] Jun, Dental examination Z01.20 [facility] [address] [id number] [address] [place] [phone] Mar, Dental examination Z01.20 [facility] [address] [id number] [address] [place] [address] [phone] Feb, Encounter for dental examina tion and cleaning without abnormal findings Z01.20 [facility] [address] [id number] [phone] November, Encounter for dental examination Z01.20 [facility] [address] [facility] [address] [id number] [phone] Oct, Dental examination Z01.20 [facility] [address] [id number] [address] [place] [address] [phone] Oct, Encounter for dental examina tion and cleaning without abnormal findings Z01.20 [facility] [address] [id number] [address] [place] [address] [phone] Jul, Dental examination Z01.20 [facility] [address] [id number] [address] [place] [address] [phone] May, Encounter for dental examina tion Z01.20 [facility] [address] [id number] [address] [place] [address] [phone] Jan, Dental examination V72.2 IMMUNIZATIONS No Known Immunizations SOCIAL HISTORY Never Assessed REASON FOR VISIT f/u PLAN OF CARE Activity Details Follow Up 2 Months Reason: Pending Test VALPROIC ACID/DEPAKOTE VITAL SIGNS Height 64.3 in 2018-03-10 Weight 229 lbs 2018-03-10 Heart Rate 88 bpm 2018-03-10 Respiratory Rate 20 2018-03-10 BMI 38.94 kg/m2 2018-03-10 Blood pressure systolic 138 mmHg 2018-03-10 Blood pressure diastolic 82 mmHg 2018-03-10 MEDICATIONS Medication Instructions Dosage Frequency Start Date End Date Duration S tatus Acetaminophen 325 MG Orally every 6 hrs 1 tablet as needed 6h Active Latuda 20 mg Orally Once a day 1 tablet with food 24h 30 day(s) Active Loratadine 10 MG Orally Once a day 1 tablet 24h Active Aspirin 325 MG Orally Once a day 1 tablet 24h Active Topamax 25 MG Orally Once a day 1 tablet 24h 30 days Active Latuda 120 MG Orally Once a day 1 tablet with food 24h 30 days Active Depakote ER 500 mg Orally 2 times a day 2 tablet 12h Mar, 30 days Active Depakote ER 500 mg Orally 2 times a day 1 tablet in tablet in the Am and 2 tabs at night 12h 30 days Active Vol-Plus 27-1 MG Orally Once a day 1 tablet 24h Jan, 30 day(s) Active Docusate Sodium 100 mg Orally twice a day 1 capsule as needed 12h Active Imipramine HCl 10 mg Orally Once a day 2 tablets at bedtime 24h Active Depo-Provera 150 MG/ML 1 ml A ctive Levothyroxine Sodium 88 MCG Orally Once a day 1 tablet 24h Active Lorazepam 1 MG Orally Once a day 1 tablet at bedtime as needed 24h 30 days Active Oxybutynin Chloride 5 mg Orally Once a day 1 tablet 24h Active RESULTS No Results PROCEDURES Procedure Date Ordered Result Body Site [facility] VISIT ESTABLISHED PATIENT Mar 10, 2018 LAB NOT BILLED BY [facility] Mar 10, 2018 INSTRUCTIONS MEDICATIONS ADMINISTERED No Known Medications
--- OUTSIDE RECORDS SUMMARY | 2019-09-20 23:29 | XMS REPORT ---
Author Author Afshan GUTIERREZ Organization [facility] Address [address] [place] [address] Care Team Providers Care Slps Name Role Phone JUANITA GUTIERREZ Unavailable PROBLEMS Type Condition ICD9-CM Code PDC82-QK Code Onset Dates Condition S tatus SNOMED Code Problem Encounter for dental examination Z01.20 Active 218839154 Assessment Dental examination Z01.20 Mar, Active [id number] ALLERGIES Substance Reaction Event Type Date Status N.K.D.A. Unknown Non Drug Allergy Mar, Unknown SOCIAL HISTORY No smoking Hx information available PLAN OF CARE VITAL SIGNS Blood pressure systolic 133 mmHg 2016-03-12 Blood pressure diastolic 85 mmHg 2016-03-12 MEDICATIONS Medication Instructions Dosage Frequency Start Date End Date Duration S tatus Divalproex Sodium 500 MG Orally Once a day 1 tablet 24h Active Lorazepam 1 tab Active Imipramine HCl 10 MG Act lance Zovirax 5 % Externally every 3 hrs 1 application to affected area 3h Active Doc-Q-Lace Active Loratadine 10 MG Orally Once a day 1 tablet 24h Active Oxybutynin Chloride 5 MG Orally Twice a day 1 tablet 12h Active Aspirin 81 MG Orally Once a day 1 tablet 24h Active Acetaminophen 325 MG Orally every 6 hrs 1 tablet as needed 6h Active Topamax 100 MG Orally Twice a day 1 tablet 12h Active Latuda 80 MG Orally Once a day 1 tablet with food 24h Active Levothyroxine Sodium 75 MCG Orally Once a day 1 tablet 24h Active Depo-Provera 150 MG/ML 1 ml A ctive RESULTS No Results PROCEDURES Procedure Date Ordered Related Diagnosis Body Site RESIN COMPOS - 3 SURFACES ANTERIOR Mar 12, 2016 Dental Outreach adjust balance Mar 12, 2016 Billing Notes on claim Mar 12, 2016 IMMUNIZATIONS No Known Immunizations
--- OUTSIDE RECORDS SUMMARY | 2019-09-20 23:29 | XMS REPORT ---
Author Author Afshan BASS [facility] Address [address] [place] [address] Care Team Providers Care Health Support Specialist Name Role Phone JOHN BASS Unavailable PROBLEMS Type Condition ICD9-CM Code CWO82-RE Code Onset Dates Condition S tatus SNOMED Code Problem Schizoaffective disorder, depressive type F25.1 Active [id number] ALLERGIES No Information ENCOUNTERS Encounter Location Date Diagnosis [place] [address] [phone] Dec, [place] [address] [phone] November, [place] [address] [place] [id number] [address] [place] [phone] Oct, [place] [address] [place] [id number] [place] [phone] Sep, Schizoaffective disorder, de pressive type F25.1 [place] [address] [place] [id number] [address] [place] [phone] Aug, Schizoaffective disorder, de pressive type F25.1 and BMI 40.0-44.9, adult Z68.41 [place] [address] [place] [id number] [address] [place] [phone] Jul, Schizoaffective disorder, de pressive type F25.1 [place] [address] [place] [id number] [address] [place] [phone] Jul, Schizoaffective disorder, de pressive type F25.1 [place] [address] [place] [id number] [address] [place] [phone] Jul, Schizoaffective disorder, de pressive type F25.1 [facility] [address] [id number] [address] [place] [address] [phone] Jul, Dental examination Z01.20 [facility] [address] [id number] [address] [place] [address] [phone] Jul, Dental examination Z01.20 [facility] [address] [id number] [address] [place] [phone] Jun, Schizoaffective disorder, de pressive type F25.1 [facility] [address] [id number] [address] [place] [phone] May, Schizoaffective disorder, de pressive type F25.1 and BMI 40.0-44.9, adult Z68.41 [facility] [address] [facility] [id number] [address] [place] [phone] Apr, Schizoaffective disorder, de pressive type F25.1 [facility] [address] [id number] [address] [place] [phone] Mar, Schizoaffective disorder, de pressive type F25.1 [facility] [address] [id number] [address] [place] [address] [phone] Mar, Dental examination Z01.[id number] [place] [address] [phone] Feb, Dental examination Z01.20 [facility] [address] [facility] [id number] [address] [place] [phone] Feb, Schizoaffective disorder, de pressive type F25.1 [facility] [address] [facility] [id number] [address] [place] [phone] Feb, Schizoaffective disorder, de pressive type F25.1 [facility] [address] [facility] [id number] [address] [place] [phone] Feb, [facility] [address] [id number] [address] [place] [phone] Feb, Schizoaffective disorder, de pressive type F25.1 [facility] [address] [id number] [address] [place] [phone] Jan, Schizoaffective disorder, de pressive type F25.1 [facility] [address] [id number] [address] [place] [phone] Jan, Well woman exam with routine gynecological exam Z01.419 [facility] [address] [id number] [address] [place] [phone] Jan, Schizoaffective disorder, de pressive type F25.1 [facility] [address] [id number] [address] [place] [address] [phone] Dec, Encounter for dental examina tion and cleaning without abnormal findings Z01.[id number] [place] [address] [phone] Dec, Dental examination Z01.20 [facility] [address] [id number] [address] [place] [phone] Dec, Schizoaffective disorder, de pressive type F25.1 [facility] [address] [id number] [address] [place] [phone] Oct, Schizoaffective disorder, de pressive type F25.1 [facility] [address] [id number] [address] [place] [phone] Oct, Schizoaffective disorder, de pressive type F25.1 [facility] [address] [id number] [address] [place] [address] [id number] Sep, Dental examination Z01.20 [facility] [address] [id number] [address] [place] [phone] Aug, Schizoaffective disorder, de pressive type F25.1 [facility] [address] [id number] [address] [place] [phone] Jul, Schizoaffective disorder, de pressive type F25.1 [facility] [address] [id number] [address] [place] [address] [phone] Jun, Encounter for dental examina tion and cleaning without abnormal findings Z01.20 [facility] [address] [facility] [id number] [phone] Jun, Dental examination Z01.20 [facility] [address] [id number] [address] [place] [phone] Mar, Dental examination Z01.20 [facility] [address] [id number] [address] [place] [address] [phone] Feb, Encounter for dental examina tion and cleaning without abnormal findings Z01.20 [facility] [address] [id number] [phone] November, Encounter for dental examination Z01.20 [facility] [address] [id number] [phone] Oct, Dental examination Z01.20 [facility] [address] [id number] [address] [place] [address] [phone] Oct, Encounter for dental examina tion and cleaning without abnormal findings Z01.20 [facility] [address] [id number] [address] [place] [address] [phone] Jul, Dental examination Z01.20 [facility] [address] [id number] [address] [place] [address] [phone] May, Encounter for dental examina tion Z01.20 [facility] [address] [id number] [address] [place] [address] [phone] Jan, Dental examination V72.2 IMMUNIZATIONS No Known Immunizations SOCIAL HISTORY Never Assessed REASON FOR VISIT BH f/u PLAN OF CARE Activity Details Follow Up 2 Weeks, 1 hour. Next availa ble Reason: VITAL SIGNS MEDICATIONS Unknown Medications RESULTS No Results PROCEDURES Procedure Date Ordered Result Body Site [facility] VISIT MENTAL HEALTH ESTAB PT January 27, 2017 Psychotherapy, patient &/family, 45 minutes, established pat ient January 27, 2017 INSTRUCTIONS MEDICATIONS ADMINISTERED No Known Medications
--- OUTSIDE RECORDS SUMMARY | 2019-09-20 23:29 | XMS REPORT ---
Author Author Afshan FINN [facility] [employer] Address Unknown Phone Unavailable Care Team Providers Care Sheep Or Calf Grader Name Role Phone FREDY FINN Unavailable Allergies, Adverse Reactions, Alerts Substance Reaction Event Type N.K.D.A. Info Not Available Non Drug Allergy Problems Problem Type Condition Code Onset Dates Condition Statu s Assessment Dental examination Z01.20 Active Problem Encounter for dental examination Z01.20 Active Medications Medication Code System Code Instructions Start Date End Date Status Dosage Lorazepam ND 0 Oral 1 tab Loratadine [facility] [address]-77 10 MG Orally Once a day 1 tablet Zovirax [facility] [address]-33 5 % Externally every 3 hrs 1 application to affected area Topamax [facility] [address]-66 100 MG Orally Twice a day 1 tablet Oxybutynin Chloride [facility] [address]-86 5 MG Orally Twice a day 1 tablet Levothyroxine Sodium [facility] [address]-00 75 MCG Orally Once a day 1 tablet Depo-Provera [facility] [address]-78 150 MG/ML Intramuscular 1 ml Divalproex Sodium [facility] [address]-87 500 MG Orally Once a day 1 tablet Imipramine HCl [facility] [address]-72 10 MG Orally not defined Aspirin [facility] [address]-30 81 MG Orally Once a day 1 tablet Acetaminophen [facility] [address]-28 325 MG Orally every 6 hrs 1 tablet as needed Latuda [facility] [address]-29 80 MG Orally Once a day 1 tablet with food Docusate Sodium [facility] [address]-56 100 MG Orally Once a day 1 capsule as needed Procedures Procedure Coding System Code Date Billing Notes on claim CPT-4 EC109 Jul 09, 016 RESIN COMPOS - 3 SURFACES ANTERIOR CPT-4 D2332 May 09, 2015 Results No Known Results Summary Purpose eClinicalWorks Submission
--- OUTSIDE RECORDS SUMMARY | 2019-09-20 23:29 | XMS REPORT ---
Author Author Afshan MONTOYA Organization [facility] Address [address] [place] [address] Phone Unavailable Care Team Providers Care Marshmallow Maker Name Role Phone RAMÍREZ MONTOYA Unavailable Unavailable PROBLEMS Type Condition ICD9-CM Code PCL96-OT Code Onset Dates Condition S tatus SNOMED Code Problem Schizoaffective disorder, depressive type F25.1 Active [id number] ALLERGIES No Information ENCOUNTERS Encounter Location Date Diagnosis [place] [address] [address] Dec, [place] [address] [address] November, [place] [address] [address] Oct, Schizoaffective disorder, de pressive type F25.1 [facility] [address] [place] [id number] [address] [place] [address] [phone] Oct, Dental examination Z01.20 [place] [address] [place] [id number] [address] [place] [phone] Sep, Schizoaffective disorder, de pressive type F25.1 [place] [address] [place] [id number] [address] [place] [phone] Aug, Schizoaffective disorder, de pressive type F25.1 and BMI 40.0-44.9, adult Z68.41 [place] [address] [place] [id number] [address] [place] [phone] Jul, Schizoaffective disorder, de pressive type F25.1 [facility] [address] [place] [id number] [address] [place] [phone] Jul, Schizoaffective disorder, de pressive type F25.1 [facility] [address] [id number] [address] [place] [phone] Jul, Schizoaffective disorder, de pressive type F25.1 [facility] [address] [id number] [address] [place] [address] [id number] Jul, Dental examination Z01.20 [facility] [address] [id number] [address] [place] [address] [phone] Jul, Dental examination Z01.20 [facility] [address] [id number] [address] [place] [phone] Jun, Schizoaffective disorder, de pressive type F25.1 [facility] [address] [id number] [address] [place] [phone] May, Schizoaffective disorder, de pressive type F25.1 and BMI 40.0-44.9, adult Z68.41 [facility] [address] [id number] [address] [place] [phone] Apr, Schizoaffective disorder, de pressive type F25.1 [facility] [address] [id number] [address] [place] [phone] Mar, Schizoaffective disorder, de pressive type F25.1 [facility] [address] [id number] [address] [place] [address] [phone] Mar, Dental examination Z01.20 [facility] [address] [id number] [phone] Feb, Dental examination Z01.20 [facility] [address] [id number] [address] [place] [phone] Feb, Schizoaffective disorder, de pressive type F25.1 [facility] [address] [id number] [address] [place] [phone] Feb, Schizoaffective disorder, de pressive type F25.1 [facility] [address] [facility] [id number] [address] [place] [phone] Feb, [facility] [address] [facility] [id number] [address] [place] [phone] Feb, Schizoaffective disorder, de pressive type F25.1 [facility] [address] [facility] [id number] [address] [place] [phone] Jan, Schizoaffective disorder, de pressive type F25.1 [facility] [address] [facility] [id number] [address] [place] [phone] Jan, Well woman exam with routine gynecological exam Z01.419 [facility] [address] [facility] [id number] [address] [place] [phone] Jan, Schizoaffective disorder, de pressive type F25.[address] [place] [id number] [place] [address] [phone] Dec, Dental examination Z01.20 [facility] [address] [id number] [address] [place] [address] [id number] Dec, Encounter for dental examina tion and cleaning without abnormal findings Z01.20 [facility] [address] [facility] [id number] [address] [place] [phone] Dec, Schizoaffective disorder, de pressive type F25.1 [facility] [address] [facility] [id number] [address] [place] [phone] Oct, Schizoaffective disorder, de pressive type F25.1 [facility] [address] [id number] [address] [place] [phone] Oct, Schizoaffective disorder, de pressive type F25.1 [facility] [address] [id number] [address] [place] [address] [phone] Sep, Dental examination Z01.20 [facility] [address] [id number] [address] [place] [phone] Aug, Schizoaffective disorder, de pressive type F25.1 [facility] [address] [id number] [address] [place] [phone] Jul, Schizoaffective disorder, de pressive type F25.[facility] [address] [id number] [phone] Jun, Dental examination Z01.20 [facility] [address] [id number] [address] [place] [address] [phone] Jun, Encounter for dental examina tion and cleaning without abnormal findings Z01.20 [facility] [address] [id number] [address] [place] [phone] Mar, Dental examination Z01.20 [facility] [address] [id number] [address] [place] [address] [phone] Feb, Encounter for dental examina tion and cleaning without abnormal findings Z01.20 [facility] [address] [id number][place] [phone] November, Encounter for dental examination Z01.20 [facility] [address] [id number][place] [id number] Oct, Dental examination Z01.20 [facility] [address] [id number] [address] [place] [address] [phone] Oct, Encounter for dental examina tion and cleaning without abnormal findings Z01.20 [facility] [address] [id number] [address] [place] [address] [phone] Jul, Dental examination Z01.20 [facility] [address] [id number] [address] [place] [address] [phone] May, Encounter for dental examina tion Z01.20 [facility] [address] [id number] [address] [place] [address] [phone] Jan, Dental examination V72.2 IMMUNIZATIONS No Known Immunizations SOCIAL HISTORY Never Assessed REASON FOR VISIT ADULT OUTREACH CLASS [facility] PLAN OF CARE Activity Details Follow Up 3 Months Reason:ON SITE RECA LL VITAL SIGNS MEDICATIONS Unknown Medications RESULTS No Results PROCEDURES Procedure Date Ordered Result Body Site PROPHYLAXIS - ADULT Mar 12, 2017 TOPICAL FLUORIDE VARNISH Mar 12, 2017 INSTRUCTIONS MEDICATIONS ADMINISTERED No Known Medications
--- OUTSIDE RECORDS SUMMARY | 2019-09-20 23:29 | XMS REPORT ---
Author Author Afshan BASS [facility] Address [address] [place] [address] Care Team Providers Care Senior Financial Reporting Accountant Name Role Phone JOHN BASS Unavailable PROBLEMS Type Condition ICD9-CM Code WFD24-HR Code Onset Dates Condition S tatus SNOMED Code Problem Schizoaffective disorder, depressive type F25.1 Active [id number] ALLERGIES No Information ENCOUNTERS Encounter Location Date Diagnosis [place] [address] [place] [id number] [address] [place] [phone] Dec, [place] [address] [address] November, [place] [address] [place] [id number] [address] [place] [phone] Oct, Schizoaffective disorder, de pressive type F25.1 [facility] [address] [place] [id number] [address] [place] [address] [phone] Oct, Dental examination Z01.20 [place] [address] [place] [id number] [address] [place] [phone] Sep, Schizoaffective disorder, de pressive type F25.1 [facility] [address] [place] [id number] [address] [place] [phone] Aug, Schizoaffective disorder, de pressive type F25.1 and BMI 40.0-44.9, adult Z68.41 [facility] [address] [place] [id number] [address] [place] [phone] Jul, Schizoaffective disorder, de pressive type F25.1 [place] [address] [place] [id number] [address] [place] [phone] Jul, Schizoaffective disorder, de pressive type F25.1 [facility] [address] [id number] [address] [place] [phone] Jul, Schizoaffective disorder, de pressive type F25.1 [facility] [address] [id number] [address] [place] [address] [phone] Jul, Dental examination Z01.20 [facility] [address] [id number] [address] [place] [address] [phone] Jul, Dental examination Z01.20 [facility] [address] [id number] [address] [place] [phone] Jun, Schizoaffective disorder, de pressive type F25.1 [facility] [address] [id number] [address] [place] [phone] May, Schizoaffective disorder, de pressive type F25.1 and BMI 40.0-44.9, adult Z68.41 [facility] [address] [facility] [id number] [address] [place] [phone] Apr, Schizoaffective disorder, de pressive type F25.1 [facility] [address] [facility] [id number] [address] [place] [phone] Mar, Schizoaffective disorder, de pressive type F25.1 [facility] [address] [id number] [address] [place] [address] [phone] Mar, Dental examination Z01.20 [facility] [address] [id number] [id number] Feb, Dental examination Z01.20 [facility] [address] [facility] [id number] [address] [place] [phone] Feb, Schizoaffective disorder, de pressive type F25.1 [facility] [address] [facility] [id number] [address] [place] [phone] Feb, Schizoaffective disorder, de pressive type F25.1 [facility] [address] [id number] [address] [place] [phone] Feb, [facility] [address] [id number] [address] [place] [phone] Feb, Schizoaffective disorder, de pressive type F25.1 [facility] [address] [id number] [address] [place] [phone] Jan, Schizoaffective disorder, de pressive type F25.1 [facility] [address] [id number] [address] [place] [phone] Jan, Well woman exam with routine gynecological exam Z01.419 [facility] [address] [facility] [id number] [address] [place] [phone] Jan, Schizoaffective disorder, de pressive type F25.1 [facility] [address] [id number] [address] [place] [address] [phone] Dec, Encounter for dental examina tion and cleaning without abnormal findings Z01.[id number] [place] [address] [phone] Dec, Dental examination Z01.20 [facility] [address] [facility] [id number] [address] [place] [phone] Dec, Schizoaffective disorder, de pressive type F25.1 [facility] [address] [id number] [address] [place] [phone] Oct, Schizoaffective disorder, de pressive type F25.1 [facility] [address] [id number] [address] [place] [phone] Oct, Schizoaffective disorder, de pressive type F25.1 [facility] [address] [id number] [address] [place] [address] [phone] Sep, Dental examination Z01.20 [facility] [address] [id number] [address] [place] [phone] 08 Aug, 2016 Schizoaffective disorder, de pressive type F25.1 [facility] [address] [id number] [address] [place] [phone] Jul, Schizoaffective disorder, de pressive type F25.1 [facility] [address] [id number] [address] [place] [address] [phone] Jun, Encounter for dental examina tion and cleaning without abnormal findings Z01.20 [facility] [address] [id number] [phone] Jun, Dental examination Z01.20 [facility] [address] [id number] [address] [place] [phone] Mar, Dental examination Z01.20 [facility] [address] [id number] [address] [place] [address] [phone] Feb, Encounter for dental examina tion and cleaning without abnormal findings Z01.20 [facility] [address] [id number] [phone] November, Encounter for dental examination Z01.20 [facility] [address] [id number][place] [phone] Oct, Dental examination Z01.20 [facility] [address] [id number] [address] [place] [address] [phone] Oct, Encounter for dental examina tion and cleaning without abnormal findings Z01.20 [facility] [address] [id number] [address] [place] [address] [phone] Jul, Dental examination Z01.20 [facility] [address] [id number] [address] [place] [address] [phone] May, Encounter for dental examina tion Z01.20 [facility] [address] [id number] [address] [place] [address] [phone] Jan, Dental examination V72.2 IMMUNIZATIONS No Known Immunizations SOCIAL HISTORY Never Assessed REASON FOR VISIT f/u PLAN OF CARE Activity Details Follow Up 3 months Reason: VITAL SIGNS MEDICATIONS Unknown Medications RESULTS No Results PROCEDURES Procedure Date Ordered Result Body Site [facility] VISIT MENTAL HEALTH ESTAB PT Apr 23, 2017 Psychotherapy, patient &/family, 30 minutes, established patient Apr 23, 2017 INSTRUCTIONS MEDICATIONS ADMINISTERED No Known Medications
--- OUTSIDE RECORDS SUMMARY | 2019-09-20 23:29 | XMS REPORT ---
Author Author Afshan OLIVO Organization [facility] Address [address] [place] [address] Care Team Providers Care Manager Loss Prevention Name Role Phone MICHELLE OLIVO Unavailable PROBLEMS Type Condition ICD9-CM Code SFL66-OW Code Onset Dates Condition S tatus SNOMED Code Problem Schizoaffective disorder, depressive type F25.1 Active [id number] Problem Encounter for dental examination Z01.20 Active 008514279 ALLERGIES Substance Reaction Event Type Date Status Risperidone Unknown Drug Allergy Jul, Active Risperdal Unknown Drug Allergy Jul, Active SOCIAL HISTORY No smoking Hx information available PLAN OF CARE Activity Details Follow Up 4 Weeks Reason: VITAL SIGNS Height 64.3 in 2016-07-23 Weight 248.8 lbs 2016-07-23 Heart Rate 84 bpm 2016-07-23 Respiratory Rate 20 2016-07-23 BMI 42.30 kg/m2 2016-07-23 Blood pressure systolic 140 mmHg 2016-07-23 Blood pressure diastolic 106 mmHg 2016-07-23 MEDICATIONS Medication Instructions Dosage Frequency Start Date End Date Duration S tatus Depo-Provera 150 MG/ML 1 ml A ctive Aspirin 325 MG Orally Once a day 1 tablet 24h Active Zovirax 5 % Externally every 3 hrs 1 application to affected area 3h Active Loratadine 10 MG Orally Once a day 1 tablet 24h Active Latuda 120 MG Orally Once a day 1 tablet with food 24h Active Oxybutynin Chloride 5 mg Orally Once a day 1 tablet 24h Active Levothyroxine Sodium 75 MCG Orally Once a day 1 tablet 24h Active Divalproex Sodium 500 MG Orally twice a day 2 tablets 12h Active Docusate Sodium 100 MG Orally Once a day 1 capsule as needed 24h Active Topamax 100 MG Orally Once a day 2 tablets 24h Active Acetaminophen 325 MG Orally every 6 hrs 1 tablet as needed 6h Active Lorazepam 2 MG Orally Once a day 1 tablet at bedtime as needed 24h Active Imipramine HCl 10 mg Orally Once a day 2 tablets at bedtime 24h Active RESULTS No Results PROCEDURES Procedure Date Ordered Related Diagnosis Body Site MH Office Visit, Est Pt., Level 3 Jul 23, 2016 IMMUNIZATIONS No Known Immunizations
--- OUTSIDE RECORDS SUMMARY | 2019-09-20 23:29 | XMS REPORT ---
Author Author Afshan GUTIERREZ Organization [facility] Address [address] [place] [address] Care Team Providers Care Travel Assistant Name Role Phone BRENDA JUANITA Unavailable PROBLEMS Type Condition ICD9-CM Code EGG92-TB Code Onset Dates Condition S tatus SNOMED Code Problem Schizoaffective disorder, depressive type F25.1 Active 47871706 ALLERGIES No Information ENCOUNTERS Encounter Location Date Diagnosis [place] [address] [place] [id number] [address] [place] [phone] Dec, [place] [address] [phone] November, [facility] [address] [place] [id number] [address] [place] [address] [phone] Oct, Dental examination Z01.20 [place] [address] [place] [id number] [address] [place] [phone] Sep, Schizoaffective disorder, de pressive type F25.1 [place] [address] [place] [id number] [address] [place] [phone] Aug, Schizoaffective disorder, de pressive type F25.1 and BMI 40.0-44.9, adult Z68.41 [facility] [address] [place] [id number] [address] [place] [phone] Jul, Schizoaffective disorder, de pressive type F25.1 [facility] [address] [place] [id number] [address] [place] [phone] Jul, Schizoaffective disorder, de pressive type F25.1 [place] [address] [place] [id number] [address] [place] [phone] Jul, Schizoaffective disorder, de pressive type F25.1 [facility] [address] [id number] [address] [place] [place] [address] [phone] Jul, Dental examination Z01.20 [facility] [address] [id number] [address] [place] [place] [address] [phone] Jul, Dental examination Z01.20 [facility] [address] [facility] [id number] [address] [place] [phone] Jun, Schizoaffective disorder, de pressive type F25.1 [facility] [address] [facility] [id number] [address] [place] [phone] May, Schizoaffective disorder, de pressive type F25.1 and BMI 40.0-44.9, adult Z68.41 [facility] [address] [facility] [id number] [address] [place] [phone] Apr, Schizoaffective disorder, de pressive type F25.1 [facility] [address] [facility] [id number] [address] [place] [phone] Mar, Schizoaffective disorder, de pressive type F25.1 [facility] [address] [id number] [address] [place] [address] [phone] Mar, Dental examination Z01.[id number] [place] [address] [phone] Feb, Dental examination Z01.20 [facility] [address] [facility] [id number] [address] [place] [phone] Feb, Schizoaffective disorder, de pressive type F25.1 [facility] [address] [facility] [id number] [address] [place] [phone] Feb, Schizoaffective disorder, de pressive type F25.1 [facility] [address] [facility] [id number] [address] [place] [phone] Feb, [facility] [address] [id number] [address] [place] [phone] Feb, Schizoaffective disorder, de pressive type F25.1 [facility] [address] [id number] [address] [place] [phone] Jan, Schizoaffective disorder, de pressive type F25.1 [facility] [address] [id number] [address] [place] [phone] Jan, Well woman exam with routine gynecological exam Z01.419 [facility] [address] [id number] [address] [place] [phone] Jan, Schizoaffective disorder, de pressive type F25.1 [facility] [address] [id number] [address] [place] [place] [address] [phone] Dec, Encounter for dental examina tion and cleaning without abnormal findings Z01.[id number] [place] [address] [phone] Dec, Dental examination Z01.20 [facility] [address] [id number] [address] [place] [phone] Dec, Schizoaffective disorder, de pressive type F25.1 [facility] [address] [facility] [id number] [address] [place] [phone] Oct, Schizoaffective disorder, de pressive type F25.1 [facility] [address] [id number] [address] [place] [phone] Oct, Schizoaffective disorder, de pressive type F25.1 [facility] [address] [id number] [address] [place] [place] [address] [phone] Sep, Dental examination Z01.20 [facility] [address] [id number] [address] [place] [phone] Aug, Schizoaffective disorder, de pressive type F25.1 [facility] [address] [id number] [address] [place] [phone] Jul, Schizoaffective disorder, de pressive type F25.1 [facility] [address] [id number] [address] [place] [address] [phone] Jun, Encounter for dental examina tion and cleaning without abnormal findings Z01.20 [facility] [address] [id number] [phone] Jun, Dental examination Z01.20 [facility] [address] [id number] [address] [place] [phone] Mar, Dental examination Z01.20 [facility] [address] [id number] [address] [place] [place] [address] [phone] Feb, Encounter for dental examina tion and cleaning without abnormal findings Z01.20 [facility] [address] [id number] [id number] November, Encounter for dental examination Z01.20 [facility] [address] [id number] [id number] Oct, Dental examination Z01.20 [facility] [address] [id number] [address] [place] [address] [phone] Oct, Encounter for dental examina tion and cleaning without abnormal findings Z01.20 [facility] [address] [id number] [address] [place] [address] [phone] Jul, Dental examination Z01.20 [facility] [address] [id number] [address] [place] [address] [phone] May, Encounter for dental examina tion Z01.20 [facility] [address] [id number] [address] [place] [address] [phone] Jan, Dental examination V72.2 IMMUNIZATIONS No Known Immunizations SOCIAL HISTORY Never Assessed REASON FOR VISIT PLAN OF CARE VITAL SIGNS MEDICATIONS Unknown Medications RESULTS No Results PROCEDURES Procedure Date Ordered Result Body Site INTRAORL-PERIAPICAL 1 FILM [id number] Mar 04, 2017 RESIN COMPOS - 3 SURFACES ANTERIOR Mar 04, 2017 INSTRUCTIONS MEDICATIONS ADMINISTERED No Known Medications
--- OUTSIDE RECORDS SUMMARY | 2019-09-20 23:29 | XMS REPORT ---
Author Author Afshan MONTOYA Organization [facility] Address [address] [place] [address] Phone Unavailable Care Team Providers Care Sewage Plant Operator Name Role Phone RAMÍREZ MONTOYA Unavailable Unavailable PROBLEMS Type Condition ICD9-CM Code AAK91-TD Code Onset Dates Condition S tatus SNOMED Code Problem Schizoaffective disorder, depressive type F25.1 Active 82855409 ALLERGIES Substance Reaction Event Type Date Status Risperidone Unknown Drug Allergy Jul, Active Risperdal Unknown Drug Allergy Jul, Active ENCOUNTERS Encounter Location Date Diagnosis [facility] [place] [address] [id number] [address] [place] [phone] Jan, [facility] [place] [id number] [place] [phone] Dec, [facility] [place] [address] [id number] [address] [place] [phone] November, Schizoaffective disorder, de pressive type F25.1 and BMI 40.0-44.9, adult Z68.41 [facility] [place] [address] [id number] [address] [place] [phone] Oct, Schizoaffective disorder, de pressive type F25.1 [facility] [address] [id number] [address] [place] [address] [id number] Oct, Dental examination Z01.20 [facility] [place] [address] [facility] [id number] [address] [place] [phone] Sep, Schizoaffective disorder, de pressive type F25.1 [facility] [place] [address] [facility] [id number] [address] [place] [phone] Aug, Schizoaffective disorder, de pressive type F25.1 and BMI 40.0-44.9, adult Z68.41 [facility] [place] [address] [id number] [address] [place] [phone] Jul, Schizoaffective disorder, de pressive type F25.1 [facility] [place] [address] [id number] [address] [place] [phone] Jul, Schizoaffective disorder, de pressive type F25.1 [facility] [place] [address] [id number] [address] [place] [phone] Jul, Schizoaffective disorder, de pressive type F25.1 [facility] [address] [id number] [address] [place] [address] [id number] Jul, Dental examination Z01.20 [facility] [address] [id number] [address] [place] [address] [phone] Jul, Dental examination Z01.20 [facility] [place] [address] [facility] [id number] [address] [place] [phone] Jun, Schizoaffective disorder, de pressive type F25.1 [facility] [place] [address] [facility] [id number] [address] [place] [phone] May, Schizoaffective disorder, de pressive type F25.1 and BMI 40.0-44.9, adult Z68.41 [facility] [place] [address] [facility] [id number] [address] [place] [phone] Apr, Schizoaffective disorder, de pressive type F25.1 [facility] [place] [address] [id number] [address] [place] [phone] Mar, Schizoaffective disorder, de pressive type F25.1 [facility] [address] [id number] [address] [place] [address] [id number] Mar, Dental examination Z01.20 [facility] [address] [id number] [id number] Feb, Dental examination Z01.20 [facility] [place] [address] [facility] [id number] [address] [place] [phone] Feb, Schizoaffective disorder, de pressive type F25.1 [facility] [place] [address] [facility] [id number] [address] [place] [phone] Feb, Schizoaffective disorder, de pressive type F25.1 [facility] [place] [address] [facility] [id number] [address] [place] [phone] Feb, [facility] [place] [address] [facility] [id number] [address] [place] [phone] Feb, Schizoaffective disorder, de pressive type F25.1 [facility] [place] [address] [facility] [id number] [address] [place] [phone] Jan, Schizoaffective disorder, de pressive type F25.1 [facility] [place] [address] [facility] [id number] [address] [place] [phone] Jan, Well woman exam with routine gynecological exam Z01.419 [facility] [place] [address] [facility] [id number] [address] [place] [phone] Jan, Schizoaffective disorder, de pressive type F25.[address] [id number] [place] [address] [id number] Dec, Dental examination Z01.20 [facility] [address] [facility] [id number] [address] [place] [address] [id number] Dec, Encounter for dental examina tion and cleaning without abnormal findings Z01.20 [facility] [place] [address] [facility] [id number] [address] [place] [phone] Dec, Schizoaffective disorder, de pressive type F25.1 [facility] [place] [address] [facility] [id number] [address] [place] [phone] Oct, Schizoaffective disorder, de pressive type F25.1 [facility] [place] [address] [facility] [id number] [address] [place] [phone] Oct, Schizoaffective disorder, de pressive type F25.1 [facility] [address] [id number] [address] [place] [address] [phone] Sep, Dental examination Z01.20 [facility] [place] [address] [id number] [address] [place] [phone] 08 Aug, 2016 Schizoaffective disorder, de pressive type F25.1 [facility] [place] [address] [id number] [address] [place] [phone] Jul, Schizoaffective disorder, de pressive type F25.1 [facility] [address] [id number] [id number] Jun, Dental examination Z01.20 [facility] [address] [id number] [address] [place] [address] [phone] Jun, Encounter for dental examina tion and cleaning without abnormal findings Z01.20 [facility] [place] [address] [id number] [address] [place] [phone] Mar, Dental examination Z01.20 [facility] [address] [id number] [address] [place] [address] [phone] Feb, Encounter for dental examina tion and cleaning without abnormal findings Z01.20 [facility] [address] [id number] [phone] November, Encounter for dental examination Z01.20 [facility] [address] [id number] [place] [id number] Oct, Dental examination Z01.20 [facility] [address] [id number] [address] [place] [address] [phone] Oct, Encounter for dental examina tion and cleaning without abnormal findings Z01.20 [facility] [address] [id number] [address] [place] [address] [id number] Jul, Dental examination Z01.20 [facility] [address] [id number] [address] [place] [address] [phone] May, Encounter for dental examina tion Z01.20 [facility] [address] [id number] [address] [place] [phone] Jan, Dental examination V72.2 IMMUNIZATIONS No Known Immunizations SOCIAL HISTORY Never Assessed REASON FOR VISIT ADULT OUTREACH CLASS [facility] PLAN OF CARE Activity Details Follow Up 3 Months Reason:ON SITE RECA LL VITAL SIGNS MEDICATIONS Medication Instructions Dosage Frequency Start Date End Date Duration S tatus Zovirax 5 % Externally every 3 hrs 1 application to affected area 3h Unknown Latuda 80 MG Orally Once a day 1 tablet with food 24h 30 days Unknown Depakote ER 500 mg Orally 2 times a day 2 tablets 12h 25 Oct, 2016 30 days Unknown Imipramine HCl 10 mg Orally Once a day 2 tablets at bedtime 24h Unknown Lorazepam 1 MG Orally Once a day 1 tablet at bedtime as needed 24h 30 days Unknown Loratadine 10 MG Orally Once a day 1 tablet 24h Unknown Oxybutynin Chloride 5 mg Orally Once a day 1 tablet 24h Unknown Aspirin 325 MG Orally Once a day 1 tablet 24h Unknown Levothyroxine Sodium 88 MCG Orally Once a day 1 tablet 24h Unknown Acetaminophen 325 MG Orally every 6 hrs 1 tablet as needed 6h Unknown Topamax 25 MG Orally Once a day 1 tablet 24h 30 days Unknown Docusate Sodium 100 mg Orally twice a day 1 capsule as needed 12h Unknown Depo-Provera 150 MG/ML 1 ml U nknown RESULTS No Results PROCEDURES Procedure Date Ordered Result Body Site PROPHYLAXIS - ADULT Jul 08, 2017 TOPICAL FLUORIDE VARNISH Jul 08, 2017 INSTRUCTIONS MEDICATIONS ADMINISTERED No Known Medications
--- OUTSIDE RECORDS SUMMARY | 2019-09-20 23:29 | XMS REPORT ---
Author Author Afshan OLIVO Organization [facility] Address [address] [place] [address] Care Team Providers Care Physician Relations Specialist Name Role Phone PALLAVI, MICHELLE Unavailable PROBLEMS Type Condition ICD9-CM Code RAT14-IW Code Onset Dates Condition S tatus SNOMED Code Problem Schizoaffective disorder, depressive type F25.1 Active [id number] ALLERGIES No Information ENCOUNTERS Encounter Location Date Diagnosis [address] [id number] [place] [phone] Jan, [address] [address] [id number] [address] [place] [phone] Dec, [address] [place] [address] [place] [phone] November, Schizoaffective disorder, de pressive type F25.1 and BMI 40.0-44.9, adult Z68.41 [address] [address] [id number] [address] [place] [phone] Oct, Schizoaffective disorder, de pressive type F25.1 [facility] [address] [facility] [id number] [address] [place] [address] [phone] Oct, Dental examination Z01.20 [facility] [address] [id number] [address] [place] [phone] Sep, Schizoaffective disorder, de pressive type F25.1 [address] [address] [id number] [address] [place] [phone] 14 Aug, 2017 Schizoaffective disorder, de pressive type F25.1 and BMI 40.0-44.9, adult Z68.41 [address] [place] [address] [id number] [address] [place] [phone] Jul, Schizoaffective disorder, de pressive type F25.1 [facility] [address] [id number] [address] [place] [phone] Jul, Schizoaffective disorder, de pressive type F25.1 [facility] [address] [id number] [address] [place] [phone] Jul, Schizoaffective disorder, de pressive type F25.1 [facility] [address] [id number] [address] [place] [address] [phone] Jul, Dental examination Z01.20 [facility] [address] [id number] [address] [place] [address] [id number] Jul, Dental examination Z01.20 [facility] [address] [id number] [address] [place] [phone] Jun, Schizoaffective disorder, de pressive type F25.1 [facility] [address] [id number] [address] [place] [phone] May, Schizoaffective disorder, de pressive type F25.1 and BMI 40.0-44.9, adult Z68.41 [facility] [address] [facility] [id number] [address] [place] [phone] Apr, Schizoaffective disorder, de pressive type F25.1 [facility] [address] [facility] [id number] [address] [place] [phone] Mar, Schizoaffective disorder, de pressive type F25.1 [facility] [address] [id number] [address] [place] [address] [id number] Mar, Dental examination Z01.20 [facility] [address] [id number] [id number] Feb, Dental examination Z01.20 [facility] [address] [id number] [address] [place] [phone] Feb, Schizoaffective disorder, de pressive type F25.1 [facility] [address] [facility] [id number] [address] [place] [phone] Feb, Schizoaffective disorder, de pressive type F25.1 [facility] [address] [facility] [id number] [address] [place] [phone] Feb, [facility] [address] [facility] [id number] [address] [place] [phone] Feb, Schizoaffective disorder, de pressive type F25.1 [facility] [address] [facility] [id number] [address] [place] [phone] Jan, Schizoaffective disorder, de pressive type F25.1 [facility] [address] [facility] [id number] [address] [place] [phone] Jan, Well woman exam with routine gynecological exam Z01.419 [facility] [address] [facility] [id number] [address] [place] [phone] Jan, Schizoaffective disorder, de pressive type F25.1 [facility] [address] [id number] [address] [place] [address] [phone] Dec, Encounter for dental examina tion and cleaning without abnormal findings Z01.[id number] [place] [address] [id number] Dec, Dental examination Z01.20 [facility] [address] [facility] [id number] [address] [place] [phone] Dec, Schizoaffective disorder, de pressive type F25.1 [facility] [address] [facility] [id number] [address] [place] [phone] Oct, Schizoaffective disorder, de pressive type F25.1 [facility] [address] [facility] [id number] [address] [place] [phone] Oct, Schizoaffective disorder, de pressive type F25.1 [facility] [address] [id number] [address] [place] [address] [id number] Sep, Dental examination Z01.20 [facility] [address] [id number] [address] [place] [phone] 08 Aug, 2016 Schizoaffective disorder, de pressive type F25.1 [facility] [address] [id number] [address] [place] [phone] Jul, Schizoaffective disorder, de pressive type F25.1 [facility] [address] [id number] [address] [place] [address] [id number] Jun, Encounter for dental examina tion and cleaning without abnormal findings Z01.20 [facility] [address] [id number] [id number] Jun, Dental examination Z01.20 [facility] [address] [id number] [address] [place] [phone] Mar, Dental examination Z01.20 [facility] [address] [id number] [address] [place] [address] [id number] Feb, Encounter for dental examina tion and cleaning without abnormal findings Z01.20 [facility] [address] [id number] [id number] November, Encounter for dental examination Z01.20 [facility] [address] [place] [address] AVE [id number] [id number] Oct, Dental examination Z01.20 [facility] [address] [id number] [address] [place] [address] [id number] Oct, Encounter for dental examina tion and cleaning without abnormal findings Z01.20 [facility] [address] [id number] [address] [place] [address] [phone] Jul, Dental examination Z01.20 [facility] [address] [id number] [address] [place] [address] [phone] May, Encounter for dental examina tion Z01.20 [facility] [address] [id number] [address] [place] [id number] Jan, Dental examination V72.2 IMMUNIZATIONS No Known Immunizations SOCIAL HISTORY Never Assessed REASON FOR VISIT med refill PLAN OF CARE VITAL SIGNS MEDICATIONS Medication Instructions Dosage Frequency Start Date End Date Duration S tatus Topamax 25 MG Orally Once a day 1 tablet 24h 30 days Active Depakote ER 500 mg Orally 2 times a day 2 tablets 12h Oct, 30 days Active RESULTS No Results PROCEDURES No Known procedures INSTRUCTIONS MEDICATIONS ADMINISTERED No Known Medications
--- OUTSIDE RECORDS SUMMARY | 2019-09-20 23:29 | XMS REPORT ---
Author Author Afshan BASS [facility] Address [address] [place] [address] Care Team Providers Care Channel Marketing Specialist Name Role Phone JOHN BASS Unavailable PROBLEMS Type Condition ICD9-CM Code QRC09-ZS Code Onset Dates Condition S tatus SNOMED Code Problem Schizoaffective disorder, depressive type F25.1 Active [id number] ALLERGIES No Information ENCOUNTERS Encounter Location Date Diagnosis [place] [address] [address] [place] [id number] [address] [place] [phone] Apr, [place] [address] [place] [id number] [address] [place] [phone] Feb, [id number] [place] [phone] Feb, [facility] [address] [facility] [id number] [address] [place] [phone] Jan, [place] [address] [address] [facility] [id number] [address] [place] [phone] Jan, Schizoaffective disorder, de pressive type F25.1 and BMI 40.0-44.[address], [address] [facility] [address] [facility] [id number] [address] [place] [phone] Dec, Schizoaffective disorder, de pressive type F25.1 [place] [address] [facility] [id number] [address] [place] [phone] November, Schizoaffective disorder, de pressive type F25.1 and BMI 40.0-44.[address], [address] [facility] [address] [facility] [id number] [address] [place] [phone] Oct, Schizoaffective disorder, de pressive type F25.1 [facility] [address] [id number] [address] [place] [phone] Oct, Dental examination Z01.20 [facility] [address] [id number] [address] [place] [phone] Sep, Schizoaffective disorder, de pressive type F25.1 [facility] [address] [id number] [address] [place] [phone] Aug, Schizoaffective disorder, de pressive type F25.1 and BMI 40.0-44.9, adult Z68.41 [facility] [address] [id number] [address] [place] [phone] Jul, Schizoaffective disorder, de pressive type F25.1 [facility] [address] [id number] [address] [place] [phone] Jul, Schizoaffective disorder, de pressive type F25.1 [facility] [address] [id number] [address] [place] [phone] Jul, Schizoaffective disorder, de pressive type F25.1 [facility] [address] [id number] [address] [place] [address] [phone] Jul, Dental examination Z01.20 [facility] [address] [id number] [address] [place] [address] [phone] Jul, Dental examination Z01.20 [facility] [address] [id number] [address] [place] [phone] Jun, Schizoaffective disorder, de pressive type F25.1 [facility] [address] [facility] [id number] [address] [place] [phone] May, Schizoaffective disorder, de pressive type F25.1 and BMI 40.0-44.9, adult Z68.41 [facility] [address] [id number] [address] [place] [phone] Apr, Schizoaffective disorder, de pressive type F25.1 [facility] [address] [id number] [address] [place] [phone] Mar, Schizoaffective disorder, de pressive type F25.1 [facility] [address] [id number] [address] [place] [address] [phone] Mar, 2017 Dental examination Z01.20 [place] [id number] [facility] [id number] [place] [phone] Feb, Dental examination Z01.20 [facility] [address] [id number] [address] [place] [phone] Feb, Schizoaffective disorder, de pressive type F25.1 [facility] [address] [id number] [address] [place] [phone] Feb, Schizoaffective disorder, de pressive type F25.1 [facility] [address] [id number] [address] [place] [phone] Feb, [facility] [address] [id number] [address] [place] [phone] Feb, Schizoaffective disorder, de pressive type F25.1 [facility] [address] [id number] [address] [place] [phone] Jan, Schizoaffective disorder, de pressive type F25.1 [facility] [address] [id number] [address] [place] [phone] Jan, Well woman exam with routine gynecological exam Z01.419 [facility] [address] [id number] [address] [place] [phone] 05 Jan, 2017 Schizoaffective disorder, de pressive type F25.1 [facility] [address] [id number] [address] [place] [address] [phone] 27 Dec, 2016 Encounter for dental examina tion and cleaning without abnormal findings Z01.20 [facility] [address] [id number] [place] [id number] Dec, Dental examination Z01.20 [facility] [address] [id number] [address] [place] [phone] Dec, Schizoaffective disorder, de pressive type F25.1 [facility] [address] [id number] [address] [place] [phone] Oct, Schizoaffective disorder, de pressive type F25.1 [facility] [address] [id number] [address] [place] [phone] Oct, Schizoaffective disorder, de pressive type F25.1 [facility] [address] [id number] [address] [place] [phone] Sep, Dental examination Z01.20 [facility] [address] [id number] [address] [place] [phone] Aug, Schizoaffective disorder, de pressive type F25.1 [facility] [address] [id number] [address] [place] [phone] Jul, Schizoaffective disorder, de pressive type F25.1 [facility] [address] [id number] [address] [place] [address] [phone] Jun, Encounter for dental examina tion and cleaning without abnormal findings Z01.20 [facility] [address] [id number] [place] [id number] Jun, Dental examination Z01.20 [facility] [address] [id number] [address] [place] [phone] Mar, Dental examination Z01.20 [facility] [address] [id number] [address] [place] [address] [phone] Feb, Encounter for dental examina tion and cleaning without abnormal findings Z01.20 [facility] [address] [id number] [phone] November, Encounter for dental examination Z01.[address] [facility] [address] [id number] [place] [phone] Oct, Dental examination Z01.20 [facility] [address] [id number] [address] [place] [address] [phone] Oct, Encounter for dental examina tion and cleaning without abnormal findings Z01.20 [facility] [address] [id number] [address] [place] [address] [phone] Jul, Dental examination Z01.20 [facility] [address] [id number] [address] [place] [address] [phone] May, Encounter for dental examina tion Z01.20 [facility] [address] [id number] [address] [place] [phone] Jan, Dental examination V72.2 IMMUNIZATIONS No Known Immunizations SOCIAL HISTORY Never Assessed REASON FOR VISIT f/u PLAN OF CARE Activity Details Follow Up 3 Months Reason: VITAL SIGNS MEDICATIONS Unknown Medications RESULTS No Results PROCEDURES Procedure Date Ordered Result Body Site [facility] VISIT MENTAL HEALTH ESTAB PT September 29, 2017 Psychotherapy, patient &/family, 30 minutes, established pat ient September 29, 2017 INSTRUCTIONS MEDICATIONS ADMINISTERED No Known Medications
--- OUTSIDE RECORDS SUMMARY | 2019-09-20 23:29 | XMS REPORT ---
Author Author Afshan OLIVO [facility] Address [address] [place] [address] Care Team Providers Care Investigative Analyst Name Role Phone PALLAVI, MICHELLE Unavailable PROBLEMS Type Condition ICD9-CM Code QGH55-IX Code Onset Dates Condition S tatus SNOMED Code Problem Schizoaffective disorder, depressive type F25.1 Active [id number] ALLERGIES Substance Reaction Event Type Date Status Risperidone Unknown Drug Allergy Feb, Active Risperdal Unknown Drug Allergy Feb, Active ENCOUNTERS Encounter Location Date Diagnosis [place] [address] [phone] Dec, [place] [address] [address] [place] [id number] [address] [place] [phone] November, [facility] [address] [place] [id number] [address] [place] [address] [phone] Oct, Dental examination Z01.20 [place] [address] [address] [place] [id number] [address] [place] [phone] Sep, Schizoaffective disorder, de pressive type F25.1 [place] [address] [address] [place] [id number] [address] [place] [phone] Aug, Schizoaffective disorder, de pressive type F25.1 and BMI 40.0-44.9, adult Z68.41 [place] [address] [address] [place] [id number] [address] [place] [phone] Jul, Schizoaffective disorder, de pressive type F25.1 [place] [address] [address] [place] [id number] [address] [place] [phone] Jul, Schizoaffective disorder, de pressive type F25.1 [facility] [address] [id number] [address] [place] [phone] Jul, Schizoaffective disorder, de pressive type F25.1 [facility] [address] [id number] [address] [place] [address] [phone] Jul, Dental examination Z01.20 [facility] [address] [id number] [address] [place] [address] [phone] Jul, Dental examination Z01.20 [facility] [address] [id number] [address] [place] [phone] Jun, Schizoaffective disorder, de pressive type F25.1 [facility] [address] [id number] [address] [place] [phone] May, Schizoaffective disorder, de pressive type F25.1 and BMI 40.0-44.9, adult Z68.41 [facility] [address] [id number] [address] [place] [phone] Apr, Schizoaffective disorder, de pressive type F25.1 [facility] [address] [id number] [address] [place] [phone] Mar, Schizoaffective disorder, de pressive type F25.1 [facility] [address] [id number] [address] [place] [address] [phone] Mar, Dental examination Z01.20 [place] [address] [facility] [id number] [place] [address] [phone] Feb, Dental examination Z01.20 [facility] [address] [id number] [address] [place] [phone] Feb, Schizoaffective disorder, de pressive type F25.1 [facility] [address] [id number] [address] [place] [phone] Feb, Schizoaffective disorder, de pressive type F25.1 [facility] [address] [id number] [address] [place] [phone] Feb, [facility] [address] [id number] [address] [place] [phone] Feb, Schizoaffective disorder, de pressive type F25.1 [facility] [address] [id number] [address] [place] [phone] Jan, Schizoaffective disorder, de pressive type F25.1 [facility] [address] [facility] [id number] [address] [place] [phone] Jan, Well woman exam with routine gynecological exam Z01.419 [facility] [address] [facility] [id number] [address] [place] [phone] Jan, Schizoaffective disorder, de pressive type F25.1 [facility] [address] [id number] [address] [place] [address] [phone] Dec, Encounter for dental examina tion and cleaning without abnormal findings Z01.[address] [place] [address] [id number] [place] [address] [phone] Dec, Dental examination Z01.20 [facility] [address] [facility] [id number] [address] [place] [phone] Dec, Schizoaffective disorder, de pressive type F25.1 [facility] [address] [facility] [id number] [address] [place] [phone] Oct, Schizoaffective disorder, de pressive type F25.1 [facility] [address] [id number] [address] [place] [phone] Oct, Schizoaffective disorder, de pressive type F25.1 [facility] [address] [id number] [address] [place] [address] [phone] Sep, Dental examination Z01.20 [facility] [address] [id number] [address] [place] [phone] Aug, Schizoaffective disorder, de pressive type F25.1 [facility] [address] [id number] [address] [place] [phone] Jul, Schizoaffective disorder, de pressive type F25.1 [facility] [address] [id number] [address] [place] [address] [phone] Jun, Encounter for dental examina tion and cleaning without abnormal findings Z01.20 [facility] [address] [id number] [id number] Jun, Dental examination Z01.20 [facility] [address] [id number] [address] [place] [phone] Mar, Dental examination Z01.20 [facility] [address] [id number] [address] [place] [address] [phone] Feb, Encounter for dental examina tion and cleaning without abnormal findings Z01.20 [facility] [address] [id number] [phone] November, Encounter for dental examination Z01.20 [facility] [address] [facility] [address] [id number] [phone] Oct, Dental examination Z01.20 [facility] [address] [id number] [address] [place] [address] [phone] Oct, Encounter for dental examina tion and cleaning without abnormal findings Z01.20 [facility] [address] [id number] [address] [place] [address] [phone] Jul, Dental examination Z01.20 [facility] [address] [id number] [address] [place] [address] [phone] May, Encounter for dental examina tion Z01.20 [facility] [address] [id number] [address] [place] [address] [phone] Jan, Dental examination V72.2 IMMUNIZATIONS No Known Immunizations SOCIAL HISTORY Never Assessed REASON FOR VISIT F/U Jayesh PLAN OF CARE Activity Details Follow Up 4 Weeks Reason: VITAL SIGNS Height 64.3 in 2017-02-25 Weight 247.4 lbs 2017-02-25 Heart Rate 80 bpm 2017-02-25 Respiratory Rate 18 2017-02-25 BMI 42.07 kg/m2 2017-02-25 Blood pressure systolic 140 mmHg 2017-02-25 Blood pressure diastolic 90 mmHg 2017-02-25 MEDICATIONS Medication Instructions Dosage Frequency Start Date End Date Duration S tatus Oxybutynin Chloride 5 mg Orally Once a day 1 tablet 24h Active Docusate Sodium 100 mg Orally twice a day 1 capsule as needed 12h Active Zovirax 5 % Externally every 3 hrs 1 application to affected area 3h Active Imipramine HCl 10 mg Orally Once a day 2 tablets at bedtime 24h Active Acetaminophen 325 MG Orally every 6 hrs 1 tablet as needed 6h Active Latuda 80 MG Orally Once a day 1 tablet with food 24h 30 days Active Topamax 50 MG Orally Once a day 1 tablet 24h 30 days Active Levothyroxine Sodium 88 MCG Orally Once a day 1 tablet 24h Active Depo-Provera 150 MG/ML 1 ml A ctive Loratadine 10 MG Orally Once a day 1 tablet 24h Active Lorazepam 1 MG Orally Once a day 1 1/2 tablets 24h 3 0 days Active Aspirin 325 MG Orally Once a day 1 tablet 24h Active Divalproex Sodium 500 mg Orally twice a day 2 tablets 12h 30 days Active Depakote ER 500 mg Orally 2 times a day 2 tablets 12h Oct, 30 days Active RESULTS No Results PROCEDURES Procedure Date Ordered Result Body Site [facility] VISIT ESTABLISHED PATIENT Feb 25, 2017 INSTRUCTIONS MEDICATIONS ADMINISTERED No Known Medications
--- OUTSIDE RECORDS SUMMARY | 2019-09-20 23:29 | XMS REPORT ---
Author Author Afshan OLIVO Organization [facility] Address [address] [place] [address] Care Team Providers Care Arabic Professor Name Role Phone PALLAVI, MICHELLE Unavailable PROBLEMS Type Condition ICD9-CM Code QGT56-CN Code Onset Dates Condition S tatus SNOMED Code Problem Schizoaffective disorder, depressive type F25.1 Active 92437917 ALLERGIES No Information ENCOUNTERS Encounter Location Date Diagnosis [place] [id number] [place] [phone] Jan, [place] [address] [place] [id number] [address] [place] [phone] Dec, [place] [id number] [place] [phone] November, Schizoaffective disorder, de pressive type F25.1 and BMI 40.0-44.9, adult Z68.41 [place] [address] [place] [id number] [address] [place] [phone] Oct, Schizoaffective disorder, de pressive type F25.1 [facility] [address] [facility] [id number] [address] [place] [address] [phone] Oct, Dental examination Z01.20 [facility] [address] [place] [id number] [address] [place] [phone] Sep, Schizoaffective disorder, de pressive type F25.1 [place] [address] [place] [id number] [address] [place] [phone] 14 Aug, 2017 Schizoaffective disorder, de pressive type F25.1 and BMI 40.0-44.9, adult Z68.41 [place] [address] [id number] [address] [place] [phone] Jul, Schizoaffective disorder, de pressive type F25.1 [facility] [address] [id number] [address] [place] [phone] Jul, Schizoaffective disorder, de pressive type F25.1 [facility] [address] [id number] [address] [place] [phone] Jul, Schizoaffective disorder, de pressive type F25.1 [facility] [address] [id number] [address] [place] [address] [phone] Jul, Dental examination Z01.20 [facility] [address] [id number] [address] [place] [address] [phone] Jul, Dental examination Z01.20 [facility] [address] [id number] [address] [place] [phone] Jun, Schizoaffective disorder, de pressive type F25.1 [facility] [address] [id number] [address] [place] [phone] May, Schizoaffective disorder, de pressive type F25.1 and BMI 40.0-44.9, adult Z68.41 [facility] [address] [facility] [id number] [address] [place] [phone] Apr, Schizoaffective disorder, de pressive type F25.1 [facility] [address] [facility] [id number] [address] [place] [phone] Mar, Schizoaffective disorder, de pressive type F25.1 [facility] [address] [id number] [address] [place] [address] [phone] Mar, Dental examination Z01.20 [facility] [place] [address] [facility] [address] [id number] [phone] Feb, Dental examination Z01.20 [facility] [address] [id number] [address] [place] [phone] Feb, Schizoaffective disorder, de pressive type F25.1 [facility] [address] [facility] [id number] [address] [place] [phone] Feb, Schizoaffective disorder, de pressive type F25.1 [facility] [address] [facility] [id number] [address] [place] [phone] Feb, [facility] [address] [facility] [id number] [address] [place] [phone] Feb, Schizoaffective disorder, de pressive type F25.1 [facility] [address] [facility] [id number] [address] [place] [phone] Jan, Schizoaffective disorder, de pressive type F25.1 [facility] [address] [facility] [id number] [address] [place] [phone] Jan, Well woman exam with routine gynecological exam Z01.419 [facility] [address] [facility] [id number] [address] [place] [phone] Jan, Schizoaffective disorder, de pressive type F25.1 [facility] [address] [id number] [address] [place] [address] [phone] Dec, Encounter for dental examina tion and cleaning without abnormal findings Z01.[address] [place] [id number] [place] [address] [phone] Dec, Dental examination Z01.20 [facility] [address] [facility] [id number] [address] [place] [phone] Dec, Schizoaffective disorder, de pressive type F25.1 [facility] [address] [facility] [id number] [address] [place] [phone] Oct, Schizoaffective disorder, de pressive type F25.1 [facility] [address] [facility] [id number] [address] [place] [phone] Oct, Schizoaffective disorder, de pressive type F25.1 [facility] [address] [id number] [address] [place] [address] [phone] Sep, Dental examination Z01.20 [facility] [address] [id number] [address] [place] [phone] 08 Aug, 2016 Schizoaffective disorder, de pressive type F25.1 [facility] [address] [id number] [address] [place] [phone] Jul, Schizoaffective disorder, de pressive type F25.1 [facility] [address] [id number] [address] [place] [address] [phone] Jun, Encounter for dental examina tion and cleaning without abnormal findings Z01.20 [facility] [address] [id number] [phone] Jun, Dental examination Z01.20 [facility] [address] [id number] [address] [place] [phone] Mar, Dental examination Z01.20 [facility] [address] [id number] [address] [place] [address] [phone] Feb, Encounter for dental examina tion and cleaning without abnormal findings Z01.20 [facility] [address] [id number][place] [phone] November, Encounter for dental examination Z01.20 [facility] [address] [place] [address] AVE [id number][place] [phone] Oct, Dental examination Z01.20 [facility] [address] [id number] [address] [place] [address] [phone] Oct, Encounter for dental examina tion and cleaning without abnormal findings Z01.20 [facility] [address] [id number] [address] [place] [address] [phone] Jul, Dental examination Z01.20 [facility] [address] [id number] [address] [place] [address] [phone] May, Encounter for dental examina tion Z01.20 [facility] [address] [id number] [address] [place] [phone] Jan, Dental examination V72.2 IMMUNIZATIONS No Known Immunizations SOCIAL HISTORY Never Assessed REASON FOR VISIT Script change PLAN OF CARE VITAL SIGNS MEDICATIONS Medication Instructions Dosage Frequency Start Date End Date Duration S tatus Depakote ER 500 mg Orally 2 times a day 2 tablets 12h Oct, 30 days Active RESULTS No Results PROCEDURES No Known procedures INSTRUCTIONS MEDICATIONS ADMINISTERED No Known Medications
--- OUTSIDE RECORDS SUMMARY | 2019-09-20 23:29 | XMS REPORT ---
Author Author Afshan OLIVO Organization [facility] Address [address] [place] [address] Care Team Providers Care Director Of Religious Life Name Role Phone MICHELLE OLIVO Unavailable PROBLEMS Type Condition ICD9-CM Code [id number] Code Onset Dates Condition S tatus SNOMED Code Problem Schizoaffective disorder, depressive type F25.1 Active 92880243 Problem Encounter for dental examination Z01.20 Active 294421399 ALLERGIES Substance Reaction Event Type Date Status Risperidone Unknown Drug Allergy Oct, Active Risperdal Unknown Drug Allergy Oct, Active SOCIAL HISTORY Never Assessed PLAN OF CARE Activity Details Follow Up 3 Months Reason: VITAL SIGNS Height 64.3 in 2016-10-22 Weight 239.9 lbs 2016-10-22 Heart Rate 80 bpm 2016-10-22 Respiratory Rate 20 2016-10-22 BMI 40.79 kg/m2 2016-10-22 Blood pressure systolic 148 mmHg 2016-10-22 Blood pressure diastolic 90 mmHg 2016-10-22 MEDICATIONS Medication Instructions Dosage Frequency Start Date End Date Duration S tatus Acetaminophen 325 MG Orally every 6 hrs 1 tablet as needed 6h Active Oxybutynin Chloride 5 mg Orally Once a day 1 tablet 24h Active Levothyroxine Sodium 88 MCG Orally Once a day 1 tablet 24h Active Zovirax 5 % Externally every 3 hrs 1 application to affected area 3h Active Docusate Sodium 100 mg Orally twice a day 1 capsule as needed 12h Active Latuda 120 MG Orally Once a day 1 tablet with food 24h Active Imipramine HCl 10 mg Orally Once a day 2 tablets at bedtime 24h Active Depo-Provera 150 MG/ML 1 ml A ctive Lorazepam 2 MG Orally Once a day 1 tablet at bedtime as needed 24h Active Topamax 100 MG Orally Once a day 1 tablet 24h 30 day s Active Aspirin 325 MG Orally Once a day 1 tablet 24h Active Loratadine 10 MG Orally Once a day 1 tablet 24h Active Divalproex Sodium 500 MG Orally twice a day 2 tablets 12h Active RESULTS No Results PROCEDURES No Known procedures IMMUNIZATIONS No Known Immunizations
--- OUTSIDE RECORDS SUMMARY | 2019-09-20 23:29 | XMS REPORT ---
Author Author Afshan GUTIERREZ Organization [facility] Address [address] [place] [address] Care Team Providers Care Temporary Help Agency Referral Clerk Name Role Phone JUANITA GUTIERREZ Unavailable PROBLEMS Type Condition ICD9-CM Code AFW29-BW Code Onset Dates Condition S tatus SNOMED Code Problem Schizoaffective disorder, depressive type F25.1 Active 47134972 Problem Encounter for dental examination Z01.20 Active 192811844 ALLERGIES Unknown Allergies SOCIAL HISTORY No smoking Hx information available PLAN OF CARE VITAL SIGNS MEDICATIONS Medication Instructions Dosage Frequency Start Date End Date Duration S tatus Topiramate Active RESULTS No Results PROCEDURES Procedure Date Ordered Related Diagnosis Body Site PERIODIC ORAL EXAMINATION Jun 12, 2016 INTRAORL-PERIAPICAL 1 FILM [id number] Jun 12, 2016 INTRAORL-PERIAPICAL EA ADD FILM Jun 12, 2016 INTRAORL-PERIAPICAL EA ADD FILM Jun 12, 2016 BITEWINGS - FOUR FILMS Jun 12, 2016 IMMUNIZATIONS No Known Immunizations
--- OUTSIDE RECORDS SUMMARY | 2019-09-20 23:29 | XMS REPORT ---
Author Author Afshan MONTOYA [facility] Address [address] [place] [address] Phone Unavailable Care Team Providers Care Staff Attorney Name Role Phone RAMÍREZ MONTOYA Unavailable Unavailable PROBLEMS Type Condition ICD9-CM Code EVL45-BE Code Onset Dates Condition S tatus SNOMED Code Problem Encounter for dental examination Z01.20 Active [id number] Assessment Encounter for dental examina tion and cleaning without abnormal findings Z01.20 Jun, Active 132290215 ALLERGIES Substance Reaction Event Type Date Status N.K.D.A. Unknown Non Drug Allergy Jun, Unknown SOCIAL HISTORY No smoking Hx information available PLAN OF CARE VITAL SIGNS MEDICATIONS No Known Medications RESULTS No Results PROCEDURES Procedure Date Ordered Related Diagnosis Body Site PROPHYLAXIS - ADULT Jun 12, 2016 TOPICAL FLUORIDE VARNISH Jun 12, 2016 IMMUNIZATIONS No Known Immunizations
--- OUTSIDE RECORDS SUMMARY | 2019-09-20 23:30 | XMS REPORT ---
Author Author Afshan MONTOYA [facility] Address [address] [place] [address] Phone Unavailable Care Team Providers Care Drum Handler Name Role Phone RAMÍREZ MONTOYA Unavailable Unavailable PROBLEMS Type Condition ICD9-CM Code NSL10-PS Code Onset Dates Condition S tatus SNOMED Code Problem Schizoaffective disorder, depressive type F25.1 Active 91162349 ALLERGIES Substance Reaction Event Type Date Status Risperidone Unknown Drug Allergy Dec, Active Risperdal Unknown Drug Allergy Dec, Active ENCOUNTERS Encounter Location Date Diagnosis [place] [address] [address] [place] [id number] [address] [place] [phone] November, [facility] [address] [place] [id number] [place] [phone] Oct, [facility] [address] [place] [id number] [address] [place] [phone] Sep, [facility] [address] [place] [id number] [place] [phone] Aug, Schizoaffective disorder, de pressive type F25.1 and BMI 40.0-44.9, adult Z68.41 [facility] [address] [place] [id number] [address] [place] [phone] Jul, Schizoaffective disorder, de pressive type F25.1 [facility] [address] [place] [id number] [address] [place] [phone] Jul, Schizoaffective disorder, de pressive type F25.1 [facility] [address] [place] [id number] [address] [place] [phone] Jul, Schizoaffective disorder, de pressive type F25.1 [facility] [address] [place] [id number] [address] [place] [address] [phone] Jul, Dental examination Z01.20 [facility] [address] [id number] [address] [place] [address] [phone] Jul, Dental examination Z01.20 [facility] [address] [facility] [id number] [address] [place] [phone] Jun, Schizoaffective disorder, de pressive type F25.1 [facility] [address] [facility] [id number] [address] [place] [phone] May, Schizoaffective disorder, de pressive type F25.1 and BMI 40.0-44.9, adult Z68.41 [facility] [address] [facility] [id number] [address] [place] [phone] Apr, Schizoaffective disorder, de pressive type F25.1 [facility] [address] [facility] [id number] [address] [place] [phone] Mar, Schizoaffective disorder, de pressive type F25.1 [facility] [address] [id number] [address] [place] [address] [phone] Mar, Dental examination Z01.[id number] [place] [address] [phone] Feb, Dental examination Z01.20 [facility] [address] [id number] [address] [place] [phone] Feb, Schizoaffective disorder, de pressive type F25.1 [facility] [address] [id number] [address] [place] [phone] Feb, Schizoaffective disorder, de pressive type F25.1 [facility] [address] [facility] [id number] [address] [place] [phone] Feb, [facility] [address] [facility] [id number] [address] [place] [phone] Feb, Schizoaffective disorder, de pressive type F25.1 [facility] [address] [id number] [address] [place] [phone] Jan, Schizoaffective disorder, de pressive type F25.1 [facility] [address] [id number] [address] [place] [phone] Jan, Well woman exam with routine gynecological exam Z01.419 [facility] [address] [id number] [address] [place] [phone] Jan, Schizoaffective disorder, de pressive type F25.1 [facility] [address] [id number] [address] [place] [address] [phone] Dec, Encounter for dental examina tion and cleaning without abnormal findings Z01.20 [place] [address] [facility] [address] [id number] [place] [id number] Dec, Dental examination Z01.20 [facility] [address] [id number] [address] [place] [phone] Dec, Schizoaffective disorder, de pressive type F25.1 [facility] [address] [id number] [address] [place] [phone] Oct, Schizoaffective disorder, de pressive type F25.1 [facility] [address] [id number] [address] [place] [phone] Oct, Schizoaffective disorder, de pressive type F25.1 [facility] [address] [id number] [address] [place] [address] [id number] Sep, Dental examination Z01.20 [facility] [address] [id number] [address] [place] [phone] Aug, Schizoaffective disorder, de pressive type F25.1 [facility] [address] [id number] [address] [place] [phone] Jul, Schizoaffective disorder, de pressive type F25.1 [facility] [address] [id number] [address] [place] [address] [phone] Jun, Encounter for dental examina tion and cleaning without abnormal findings Z01.20 [facility] [address] [facility] [address] [id number] [phone] Jun, Dental examination Z01.20 [facility] [address] [id number] [address] [place] [phone] Mar, Dental examination Z01.20 [facility] [address] [id number] [address] [place] [address] [phone] Feb, Encounter for dental examina tion and cleaning without abnormal findings Z01.20 [facility] [address] [facility] [address] [id number] [phone] November, Encounter for dental examination Z01.20 [facility] [address] [facility] [address] [id number][place] [id number] Oct, Dental examination Z01.20 [facility] [address] [id number] [address] [place] [address] [phone] Oct, Encounter for dental examina tion and cleaning without abnormal findings Z01.20 [facility] [address] [id number] [address] [place] [address] [phone] Jul, Dental examination Z01.20 [facility] [address] [id number] [address] [place] [address] [phone] May, Encounter for dental examina tion Z01.20 [facility] [address] [id number] [address] [place] [address] [phone] Jan, Dental examination V72.2 IMMUNIZATIONS No Known Immunizations SOCIAL HISTORY Never Assessed REASON FOR VISIT ADULT OUTREACH CLASS [facility] PLAN OF CARE Activity Details Follow Up WITH DR GUTIERREZ Reason:RESTORAT MING VITAL SIGNS MEDICATIONS Medication Instructions Dosage Frequency Start Date End Date Duration S tatus Imipramine HCl 10 mg Orally Once a day 2 tablets at bedtime 24h Active Docusate Sodium 100 mg Orally twice a day 1 capsule as needed 12h Active Zovirax 5 % Externally every 3 hrs 1 application to affected area 3h Active Oxybutynin Chloride 5 mg Orally Once a day 1 tablet 24h Active Depo-Provera 150 MG/ML 1 ml A ctive Latuda 120 MG Orally Once a day 1 tablet with food 24h 30 days Active Depakote ER 500 mg Orally 2 times a day 2 tablets 12h Oct, 30 days Active Loratadine 10 MG Orally Once a day 1 tablet 24h Active Acetaminophen 325 MG Orally every 6 hrs 1 tablet as needed 6h Active Levothyroxine Sodium 88 MCG Orally Once a day 1 tablet 24h Active Topamax 50 MG Orally Once a day 1 tablet 24h 30 days Active Aspirin 325 MG Orally Once a day 1 tablet 24h Active Lorazepam 2 MG Orally Once a day 1 tablet at bedtime as needed 24h 30 days Active Divalproex Sodium 500 mg Orally twice a day 2 tablets 12h 30 days Active RESULTS No Results PROCEDURES Procedure Date Ordered Result Body Site PROPHYLAXIS - ADULT December 30, 2016 INSTRUCTIONS MEDICATIONS ADMINISTERED No Known Medications
--- OUTSIDE RECORDS SUMMARY | 2019-09-20 23:30 | XMS REPORT ---
Author Author Afshan BASS Organization [facility] Address [address] [place] [address] Care Team Providers Care Emergency Medical Technician Name Role Phone JOHN BASS Unavailable PROBLEMS Type Condition ICD9-CM Code XEE52-CK Code Onset Dates Condition S tatus SNOMED Code Problem Schizoaffective disorder, depressive type F25.1 Active [id number] ALLERGIES No Information ENCOUNTERS Encounter Location Date Diagnosis [facility] [address] [place] [id number] [address] [place] [phone] Jan, [place] [address] [phone] Dec, [facility] [address] [place] [id number] [address] [place] [phone] November, Schizoaffective disorder, de pressive type F25.1 and BMI 40.0-44.9, adult Z68.41 [place] [address] [place] [id number] [address] [place] [phone] Oct, Schizoaffective disorder, de pressive type F25.1 [facility] [address] [facility] [id number] [address] [place] [address] [phone] Oct, Dental examination Z01.20 [facility] [address] [facility] [id number] [address] [place] [phone] Sep, Schizoaffective disorder, de pressive type F25.1 [facility] [address] [facility] [id number] [address] [place] [phone] 14 Aug, 2017 Schizoaffective disorder, de pressive type F25.1 and BMI 40.0-44.9, adult Z68.41 [place] [id number] [id number] [address] [place] [phone] Jul, Schizoaffective disorder, de pressive type F25.1 [facility] [address] [id number] [address] [place] [phone] Jul, Schizoaffective disorder, de pressive type F25.1 [facility] [address] [id number] [address] [place] [phone] Jul, Schizoaffective disorder, de pressive type F25.1 [facility] [address] [id number] [address] [place] [address] [id number] Jul, Dental examination Z01.20 [facility] [address] [id number] [address] [place] [address] [phone] Jul, Dental examination Z01.20 [facility] [address] [facility] [id number] [address] [place] [phone] Jun, Schizoaffective disorder, de pressive type F25.1 [facility] [address] [id number] [address] [place] [phone] May, Schizoaffective disorder, de pressive type F25.1 and BMI 40.0-44.9, adult Z68.41 [facility] [address] [facility] [id number] [address] [place] [phone] Apr, Schizoaffective disorder, de pressive type F25.1 [facility] [address] [facility] [id number] [address] [place] [phone] Mar, Schizoaffective disorder, de pressive type F25.1 [facility] [address] [id number] [address] [place] [address] [phone] Mar, Dental examination Z01.20 [facility] [id number] [id number] Feb, Dental examination Z01.20 [facility] [address] [id number] [address] [place] [phone] Feb, Schizoaffective disorder, de pressive type F25.1 [facility] [address] [facility] [id number] [address] [place] [phone] Feb, Schizoaffective disorder, de pressive type F25.1 [facility] [address] [facility] [id number] [address] [place] [phone] Feb, [facility] [address] [facility] [id number] [address] [place] [phone] Feb, Schizoaffective disorder, de pressive type F25.1 [facility] [address] [facility] [id number] [address] [place] [phone] Jan, Schizoaffective disorder, de pressive type F25.1 [facility] [address] [facility] [id number] [address] [place] [phone] Jan, Well woman exam with routine gynecological exam Z01.419 [facility] [address] [facility] [id number] [address] [place] [phone] Jan, Schizoaffective disorder, de pressive type F25.1 [facility] [address] [id number] [address] [place] [address] [phone] Dec, Encounter for dental examina tion and cleaning without abnormal findings Z01.[address] [place] [id number] [place] [address] [phone] Dec, Dental examination Z01.20 [facility] [address] [facility] [id number] [address] [place] [phone] Dec, Schizoaffective disorder, de pressive type F25.1 [facility] [address] [facility] [id number] [address] [place] [phone] Oct, Schizoaffective disorder, de pressive type F25.1 [facility] [address] [facility] [id number] [address] [place] [phone] Oct, Schizoaffective disorder, de pressive type F25.1 [facility] [address] [id number] [address] [place] [address] [id number] Sep, Dental examination Z01.20 [facility] [address] [id number] [address] [place] [phone] 08 Aug, 2016 Schizoaffective disorder, de pressive type F25.1 [facility] [address] [id number] [address] [place] [phone] Jul, Schizoaffective disorder, de pressive type F25.1 [facility] [address] [id number] [address] [place] [address] [phone] Jun, Encounter for dental examina tion and cleaning without abnormal findings Z01.20 [facility] [address] [facility] [address] [id number] [phone] Jun, Dental examination Z01.20 [facility] [address] [id number] [address] [place] [phone] Mar, Dental examination Z01.20 [facility] [address] [id number] [address] [place] [address] [phone] Feb, Encounter for dental examina tion and cleaning without abnormal findings Z01.20 [facility] [address] [facility] [address] [id number] [phone] November, Encounter for dental examination Z01.20 [facility] [address] [id number] [id number] Oct, Dental examination Z01.20 [facility] [address] [id number] [address] [place] [address] [phone] Oct, Encounter for dental examina tion and cleaning without abnormal findings Z01.20 [facility] [address] [id number] [address] [place] [address] [phone] Jul, Dental examination Z01.20 [facility] [address] [id number] [address] [place] [address] [phone] May, Encounter for dental examina tion Z01.20 [facility] [address] [facility] [id number] [address] [place] [phone] Jan, Dental examination V72.2 IMMUNIZATIONS No Known Immunizations SOCIAL HISTORY Never Assessed REASON FOR VISIT f/u PLAN OF CARE Activity Details Follow Up 4 Weeks Reason: VITAL SIGNS MEDICATIONS Unknown Medications RESULTS No Results PROCEDURES Procedure Date Ordered Result Body Site [facility] VISIT MENTAL HEALTH ESTAB PT Jun 26, 2017 Psychotherapy, patient &/family, 45 minutes, established patient Jun 26, 2017 INSTRUCTIONS MEDICATIONS ADMINISTERED No Known Medications
--- OUTSIDE RECORDS SUMMARY | 2019-09-20 23:30 | XMS REPORT ---
Author Author Afshan UMANZOR Organization [employer] Address Unknown Phone Unavailable Care Team Providers Care Architectural Draftsperson Name Role Phone RAMÍREZ UMANZOR CP Unavailable Allergies No Known Allergies Problems Problem Type Condition ICD-9 Code Onset Dates Condition Statu s Assessment Dental examination V72.2 Active Medications No Known Medications Procedures Procedure Coding System Code Date Full mouth debridement CPT-4 D4355 January 24, 2015 LTD ORAL EVALUATION - PROBLEM FOCUS CPT-4 D0140 January 24, 2015 Results No Known Results Summary Purpose [employer] Submission
--- OUTSIDE RECORDS SUMMARY | 2019-09-20 23:30 | XMS REPORT ---
Author Author Afshan SANCHEZ [facility] [employer] Address Unknown Phone Unavailable Care Team Providers Care Secondary Education Professor Name Role Phone AMBER SANCHEZ CP Unavailable Allergies No Known Allergies Problems Problem Type Condition Code Onset Dates Condition Statu s Assessment Encounter for dental examination Z01.20 Active Problem Encounter for dental examination Z01.20 Active Medications Medication Code System Code Instructions Start Date End Date Status Dosage Imipramine HCl [facility] [address]-90 10 MG Orally not defined Topamax [facility] [address]-53 100 MG Orally Twice a day 1 tablet Aspirin [facility] [address]-26 81 MG Orally Once a day 1 tablet Latuda [facility] [address]-06 80 MG Orally Once a day 1 tablet with food Lorazepam [facility] 0 Oral 1 tab Depo-Provera [facility] [address]-84 150 MG/ML Intramuscular 1 ml Oxybutynin Chloride [facility] [address]-22 5 MG Orally Twice a day 1 tablet Docusate Sodium [facility] [address]-12 100 MG Orally Once a day 1 capsule as needed Zovirax [facility] [address]-82 5 % Externally every 3 hrs 1 application to affected area Levothyroxine Sodium [facility] [address]-00 75 MCG Orally Once a day 1 tablet Loratadine [facility] [address]-94 10 MG Orally Once a day 1 tablet Divalproex Sodium [facility] [address]-09 500 MG Orally Once a day 1 tablet Acetaminophen [facility] [address]-89 325 MG Orally every 6 hrs 1 tablet as needed Procedures Procedure Coding System Code Date TOPICAL FLUORIDE VARNISH CPT-4 D1206 May 09, 2015 Periodontal maint procedures CPT-4 D4910 May 09, 2015 Results No Known Results Summary Purpose [employer] Submission
--- OUTSIDE RECORDS SUMMARY | 2019-09-20 23:30 | XMS REPORT ---
Author Author Afshan GUTIERREZ Organization [facility] Address [address] [place] [address] Care Team Providers Care Chief Librarian Extension Department Name Role Phone BRENDA JUANITA Unavailable PROBLEMS Type Condition ICD9-CM Code GNY37-RG Code Onset Dates Condition S tatus SNOMED Code Problem Schizoaffective disorder, depressive type F25.1 Active [id number] ALLERGIES Substance Reaction Event Type Date Status Risperidone Unknown Drug Allergy Dec, Active Risperdal Unknown Drug Allergy Dec, Active ENCOUNTERS Encounter Location Date Diagnosis [place] [address] [phone] November, [place] [address] [phone] Oct, [place] [address] [phone] Sep, [place] [address] [address] Aug, Schizoaffective disorder, de pressive type F25.1 and BMI 40.0-44.9, adult Z68.41 [place] [address] [place] [id number] [address] [place] [phone] Jul, Schizoaffective disorder, de pressive type F25.1 [facility] [address] [place] [id number] [address] [place] [phone] Jul, Schizoaffective disorder, de pressive type F25.1 [place] [address] [place] [id number] [address] [place] [phone] Jul, Schizoaffective disorder, de pressive type F25.1 [facility] [address] [id number] [address] [place] [address] [phone] Jul, Dental examination Z01.20 [facility] [address] [id number] [address] [place] [address] [phone] Jul, Dental examination Z01.20 [facility] [address] [id number] [address] [place] [phone] Jun, Schizoaffective disorder, de pressive type F25.1 [facility] [address] [id number] [address] [place] [phone] May, Schizoaffective disorder, de pressive type F25.1 and BMI 40.0-44.9, adult Z68.41 [facility] [address] [id number] [address] [place] [phone] Apr, Schizoaffective disorder, de pressive type F25.1 [facility] [address] [id number] [address] [place] [phone] Mar, Schizoaffective disorder, de pressive type F25.1 [facility] [address] [place] [address] [id number] [address] [place] [address] [phone] Mar, Dental examination Z01.[id number] [place] [address] [phone] Feb, Dental examination Z01.20 [facility] [address] [id number] [address] [place] [phone] Feb, Schizoaffective disorder, de pressive type F25.1 [facility] [address] [id number] [address] [place] [phone] Feb, Schizoaffective disorder, de pressive type F25.1 [facility] [address] [id number] [address] [place] [phone] Feb, [facility] [address] [id number] [address] [place] [phone] Feb, Schizoaffective disorder, de pressive type F25.1 [facility] [address] [id number] [address] [place] [phone] Jan, Schizoaffective disorder, de pressive type F25.1 [facility] [address] [id number] [address] [place] [phone] Jan, Well woman exam with routine gynecological exam Z01.419 [facility] [address] [id number] [address] [place] [phone] Jan, Schizoaffective disorder, de pressive type F25.1 [facility] [address] [address] [id number] [address] [place] [address] [phone] Dec, Encounter for dental examina tion and cleaning without abnormal findings Z01.20 [place] [id number] [facility] [id number] [place] [address] [phone] Dec, Dental examination Z01.20 [facility] [address] [id number] [address] [place] [phone] Dec, Schizoaffective disorder, de pressive type F25.1 [facility] [address] [facility] [id number] [address] [place] [phone] Oct, Schizoaffective disorder, de pressive type F25.1 [facility] [address] [facility] [id number] [address] [place] [phone] Oct, Schizoaffective disorder, de pressive type F25.1 [facility] [address] [place] [address] [id number] [address] [place] [address] [phone] Sep, Dental examination Z01.20 [facility] [address] [id number] [address] [place] [phone] Aug, Schizoaffective disorder, de pressive type F25.1 [facility] [address] [facility] [id number] [address] [place] [phone] Jul, Schizoaffective disorder, de pressive type F25.1 [facility] [address] [place] [address] [id number] [address] [place] [address] [phone] Jun, Encounter for dental examina tion and cleaning without abnormal findings Z01.20 [facility] [address] [facility] [address] [id number] [phone] Jun, Dental examination Z01.20 [facility] [address] [id number] [address] [place] [phone] Mar, Dental examination Z01.20 [facility] [address] [address] [id number] [address] [place] [address] [phone] Feb, Encounter for dental examina tion and cleaning without abnormal findings Z01.20 [facility] [address] [facility] [address] [id number] [phone] November, Encounter for dental examination Z01.20 [facility] [address] [facility] [address] [id number] [place] [phone] Oct, Dental examination Z01.20 [facility] [address] [id number] [address] [place] [address] [phone] Oct, Encounter for dental examina tion and cleaning without abnormal findings Z01.20 [facility] [address] [id number] [address] [place] [address] [phone] Jul, Dental examination Z01.20 [facility] [address] [address] [id number] [address] [place] [address] [phone] May, Encounter for dental examina tion Z01.20 [facility] [address] [address] [id number] [address] [place] [address] [phone] Jan, Dental examination V72.2 IMMUNIZATIONS No Known Immunizations SOCIAL HISTORY Never Assessed REASON FOR VISIT PLAN OF CARE Activity Details Follow Up prn Reason:Restorative VITAL SIGNS MEDICATIONS Medication Instructions Dosage Frequency Start Date End Date Duration S tatus Depakote ER 500 mg Orally 2 times a day 2 tablets 12h 25 Oct, 2016 30 days Active Topamax 50 MG Orally Once a day 1 tablet 24h 30 days Active Docusate Sodium 100 mg Orally twice a day 1 capsule as needed 12h Active Lorazepam 2 MG Orally Once a day 1 tablet at bedtime as needed 24h 30 days Active Oxybutynin Chloride 5 mg Orally Once a day 1 tablet 24h Active Aspirin 325 MG Orally Once a day 1 tablet 24h Active Zovirax 5 % Externally every 3 hrs 1 application to affected area 3h Active Divalproex Sodium 500 mg Orally twice a day 2 tablets 12h 30 days Active Imipramine HCl 10 mg Orally Once a day 2 tablets at bedtime 24h Active Latuda 120 MG Orally Once a day 1 tablet with food 24h 30 days Active Acetaminophen 325 MG Orally every 6 hrs 1 tablet as needed 6h Active Depo-Provera 150 MG/ML 1 ml A ctive Levothyroxine Sodium 88 MCG Orally Once a day 1 tablet 24h Active Loratadine 10 MG Orally Once a day 1 tablet 24h Active RESULTS No Results PROCEDURES Procedure Date Ordered Result Body Site PERIODIC ORAL EXAMINATION December 30, 2016 BITEWINGS - FOUR FILMS December 30, 2016 INSTRUCTIONS MEDICATIONS ADMINISTERED No Known Medications
--- OUTSIDE RECORDS SUMMARY | 2019-09-20 23:30 | XMS REPORT ---
Author Author Afshan MONTOYA [facility] [employer] Address Unknown Phone Unavailable Care Team Providers Care Sales Trainer Name Role Phone RAMÍREZ MONTOYA CP Unavailable Allergies, Adverse Reactions, Alerts Substance Reaction Event Type N.K.D.A. Info Not Available Non Drug Allergy Problems Problem Type Condition Code Onset Dates Condition Statu s Assessment Encounter for dental examina tion and cleaning without abnormal findings Z01.20 Active Problem Encounter for dental examination Z01.20 Active Medications Medication Code System Code Instructions Start Date End Date Status Dosage Latuda [facility] [address]-06 80 MG Orally Once a day 1 tablet with food Topamax [facility] [address]-62 100 MG Orally Twice a day 1 tablet Loratadine [facility] [address]-37 10 MG Orally Once a day 1 tablet Lorazepam [place] 0 Oral 1 tab Depo-Provera [facility] [address]-70 150 MG/ML Intramuscular 1 ml Doc-Q-Lace NDC 0 not defined Divalproex Sodium [facility] [address]-24 500 MG Orally Once a day 1 tablet Aspirin [facility] [address]-64 81 MG Orally Once a day 1 tablet Levothyroxine Sodium [facility] [address]-21 75 MCG Orally Once a day 1 tablet Acetaminophen [facility] [address]-13 325 MG Orally every 6 hrs 1 tablet as needed Imipramine HCl [facility] [address]-00 10 MG Orally not defined Oxybutynin Chloride [facility] [address]-09 5 MG Orally Twice a day 1 tablet Zovirax [facility] [address]-88 5 % Externally every 3 hrs 1 application to affected area Procedures Procedure Coding System Code Date TOPICAL FLUORIDE VARNISH CPT-4 D1206 Feb 19, 2016 PROPHYLAXIS - ADULT CPT-4 D1110 Feb 19, 2016 Results No Known Results Summary Purpose [employer]Clinical[employer] Submission
--- OUTSIDE RECORDS SUMMARY | 2019-09-20 23:30 | XMS REPORT | Continuity of Care Document ---
Author Organization Unknown Address Unknown Phone Unavailable Allergies Active Description Code Type Severity Reaction Onset Reported/Identified Relationship to Patient Clinical Status Yes No Known Drug Allergies [id number] Drug Allergy Unknown N/A 02/25/2008 Medications There is no data. Problems Date Dx Coded Attending Type Code Diagnosis Diagnosed By 09/29/2014 Ot V76.12 11/01/2014 Ot V76.12 11/01/2014 Ot V76.12 11/01/2014 Ot V76.12 11/01/2014 Ot V76.12 11/01/2014 GELLENDER DOBRIANNA Ot V76.12 11/01/2014 Ot V76.12 12/02/2014 GELLENDER DOBRIANNA Ot 959.7 12/02/2014 GELLENDER DO, BRIANNA Garcia Ot E000.8 12/02/2014 GELLENDER DO, BRIANNA Garcia Ot E888.9 12/14/2014 GELLENDER DO, BRIANNA Garcia Ot 959.7 12/14/2014 GELLENDER DO, BRIANNA Garcia Ot E000.8 12/14/2014 GELLENDER DO, BRIANNA Garcia Ot E888.9 03/07/2015 GELLENDER DO, BRIANNA Garcia Ot V76.12 10/09/2015 Ot Z12.31 10/26/2015 Ot Z12.31 ENC NTR SCREEN MAMMOGRAM FOR MALIGNANT NE 11/08/2015 Ot Z12.31 ENC NTR SCREEN MAMMOGRAM FOR MALIGNANT NE 03/31/2016 GELLENDER DO, BRIANNA Garcia Ot M54.9 DORSALGIA, UNSPECIFIED 04/03/2016 GELLENDER DO, BRIANNA Garcia Ot M54.9 DORSALGIA, UNSPECIFIED 04/18/2016 GELLENDER DO, BRIANNA Garcia Ot M54.9 DORSALGIA, UNSPECIFIED 04/30/2016 GELLENDER DO, BRIANNA Garcia Ot M54.9 DORSALGIA, UNSPECIFIED 11/11/2016 Ot V76.12 OTH SCREEN MAMMO- MALIGN NEOPLASM OF [place]IAN[place] 11/11/2016 Ot V76.12 OTH SCREEN MAMMO- MALIGN NEOPLASM OF [place] 11/11/2016 GELLENDER DO, BRIANNA Garcia Ot V76.12 OTH SCREEN MAMMO-MALIGN NEOPLASM OF [place] 11/11/2016 Ot V76.12 OTH SCREEN MAMMO- MALIGN NEOPLASM OF [place] 11/11/2016 GELLENDER DO, BRIANNA Garcia Ot 959.7 LOWER LEG INJURY NOS 11/11/2016 GELLENDER DO, BRIANNA Garcia Ot E000.8 OTHER EXTERNAL CAUSE STATUS 11/11/2016 GELLENDER DO, BRIANNA Garcia Ot E888.9 FALL NOS 11/11/2016 Ot Z12.31 ENC NTR SCREEN MAMMOGRAM FOR MALIGNANT NE 11/11/2016 GELLENDER DO, BRIANNA Garcia Ot M54.9 DORSALGIA, UNSPECIFIED 11/11/2016 GELLENDER DO, BRIANNA Garcia Ot Z12.31 ENCNTR SCREEN MAMMOGRAM FOR MALIGNANT NE 11/11/2016 GELLENDER DO, BRIANNA Garcia Ot Z12.31 ENCNTR SCREEN MAMMOGRAM FOR MALIGNANT NE 11/11/2016 GELLENDER DO, BRIANNA Radha Ot Z12.31 ENCNTR SCREEN MAMMOGRAM FOR MALIGNANT NE 11/11/2016 GELLENDER DO, BRIANNA Garcia Ot Z12.31 ENCNTR SCREEN MAMMOGRAM FOR MALIGNANT NE 12/11/2016 GELLENDER DO, BRIANNA Garcia Ot Z12.31 ENCNTR SCREEN MAMMOGRAM FOR MALIGNANT NE 12/15/2016 GELLENDER DO, BRIANNA Garcia Ot Z12.31 ENCNTR SCREEN MAMMOGRAM FOR MALIGNANT NE 12/04/2017 GELLENDER DO, BRIANNA Garcia Ot Z12.31 ENCNTR SCREEN MAMMOGRAM FOR MALIGNANT NE 12/14/2017 GELLENDER DO, BRIANNA Garcia Ot R92.8 OTH ABN AND INCONCLUSIVE FINDINGS ON DX 12/14/2017 GELLENDER DO, BRIANNA Garcia Ot R92.8 OTH ABN AND INCONCLUSIVE FINDINGS ON DX 12/15/2017 GELLENDER DO, BRIANNA Garcia Ot N63.11 UNSPECIFIED LUMP IN THE RIGHT BREAST, UP 12/23/2017 GELLENDER DO, BRIANNA Radha Ot Z12.31 ENCNTR SCREEN MAMMOGRAM FOR MALIGNANT NE 12/30/2017 GELLENDER DO, BRIANNA Radha Ot Z12.31 ENCNTR SCREEN MAMMOGRAM FOR MALIGNANT NE 01/07/2018 GELLENDER DO, BRIANNA Radha Ot N63.11 UNSPECIFIED LUMP IN THE RIGHT BREAST, UP 01/13/2018 GELLENDER DO, BRIANNA Garcia Ot N63.11 UNSPECIFIED LUMP IN THE RIGHT BREAST, UP 06/23/2018 GELLENDER DO, BRIANNA Garcia Ot R92.8 OTH ABN AND INCONCLUSIVE FINDINGS ON DX 06/24/2018 GELLENDER DO, BRIANNA Garcia Ot V76.12 OTH SCREEN MAMMO-MALIGN NEOPLASM OF [place] 06/24/2018 Ot V76.12 OTH SCREEN MAMMO- MALIGN NEOPLASM OF [place] 06/24/2018 GLADYSLENDER DO, BRIANNA Garcia Ot 959.7 LOWER LEG INJURY NOS 06/24/2018 GELLENDER DO, BRIANNA Garcia Ot E000.8 OTHER EXTERNAL CAUSE STATUS 06/24/2018 GELLENDER DO, BRIANNA Garcia Ot E888.9 FALL NOS 06/24/2018 Ot Z12.31 ENC NTR SCREEN MAMMOGRAM FOR MALIGNANT NE 06/24/2018 GELLENDER DO, BRIANNA Garcia Ot M54.9 DORSALGIA, UNSPECIFIED 06/24/2018 GELLENDER DO, BRIANNA Garcia Ot Z12.31 ENCNTR SCREEN MAMMOGRAM FOR MALIGNANT NE 06/24/2018 GELLENDER DO, BRIANNA Garcia Ot Z12.31 ENCNTR SCREEN MAMMOGRAM FOR MALIGNANT NE 06/24/2018 GELLENDER DO, BRIANNA Garcia Ot N63.11 UNSPECIFIED LUMP IN THE RIGHT BREAST, UP 06/24/2018 GELLENDER DO, BRIANNA Garcia Ot R92.8 OTH ABN AND INCONCLUSIVE FINDINGS ON DX 06/26/2018 GELLENDER DO, BRIANNA Garcia Ot N63.10 UNSPECIFIED LUMP IN THE RIGHT BREAST, UN 07/15/2018 GELLENDER DO, BRIANNA Garcia Ot N63.10 UNSPECIFIED LUMP IN THE RIGHT BREAST, UN 07/21/2018 GELLENDER DO, BRIANNA Garcia Ot N63.10 UNSPECIFIED LUMP IN THE RIGHT BREAST, UN 01/24/2019 GELLENDER DO, BRIANNA Garcia Ot N63.11 UNSPECIFIED LUMP IN THE RIGHT BREAST, UP 01/28/2019 GELLENDER DO, BRIANNA Garcia Ot N63.11 UNSPECIFIED LUMP IN THE RIGHT BREAST, UP 06/21/2019 GELLENDER DO, BRIANNA Radha Ot N63.20 UNSPECIFIED LUMP IN THE LEFT BREAST, UNS 06/21/2019 Ot V76.12 OTH SCREEN MAMMO- MALIGN NEOPLASM OF [place] 06/21/2019 GELLENDER DO, BRIANNA Garcia Ot 959.7 LOWER LEG INJURY NOS 06/21/2019 GELLENDER DO, BRIANNA Garcia Ot E000.8 OTHER EXTERNAL CAUSE STATUS 06/21/2019 GELLENDER DO, BRIANNA Garcia Ot E888.9 FALL NOS 06/21/2019 Ot Z12.31 ENC NTR SCREEN MAMMOGRAM FOR MALIGNANT NE 06/21/2019 GELLENDER DO, BRIANNA Garcia Ot M54.9 DORSALGIA, UNSPECIFIED 06/21/2019 GELLENDER DO, BRIANNA Garcia Ot Z12.31 ENCNTR SCREEN MAMMOGRAM FOR MALIGNANT NE 06/21/2019 GELLENDER DO, BRIANNA Garcia Ot Z12.31 ENCNTR SCREEN MAMMOGRAM FOR MALIGNANT NE 06/21/2019 GELLENDER DO, BRIANNA Garcia Ot N63.11 UNSPECIFIED LUMP IN THE RIGHT BREAST, UP 06/21/2019 GELLENDER DO, BRIANNA Garcia Ot N63.10 UNSPECIFIED LUMP IN THE RIGHT BREAST, UN 06/21/2019 GELLENDER DO, BRIANNA Garcia Ot N63.11 UNSPECIFIED LUMP IN THE RIGHT BREAST, UP 06/21/2019 GELLENDER DO, BRIANNA Garcia Ot N63.20 UNSPECIFIED LUMP IN THE LEFT BREAST, UNS 06/27/2019 GELLENDER DO, BRIANNA Garcia Ot N63.10 UNSPECIFIED LUMP IN THE RIGHT BREAST, UN 07/27/2019 GELLENDER DO, BRIANNA Garcia Ot N63.10 UNSPECIFIED LUMP IN THE RIGHT BREAST, UN Procedures There is no data. Results Test Result Range PDM - 09 PANEL (PROFILE 1) - 01/05/19 11 :34 Prescribed Drug 1 Lorazepam NRG Creatinine 18.4 mg/dL > or = 20.0 pH 6.66 4.5 - 9.0 Oxidant NEGATIVE mcg/mL <200 Amphetamines NEGATIVE ng/mL <500 medMATCH Amphetamines CONSISTENT NRG Benzodiazepines POSITIVE ng/mL <100 Marijuana Metabolite NEGATIVE ng/mL <20 medMATCH Marijuana Metab CONSISTENT NRG Cocaine Metabolite NEGATIVE ng/mL <150 medMATCH Cocaine Metab CONSISTENT NRG Opiates NEGATIVE ng/mL <100 medMATCH Opiates CONSISTENT NRG Oxycodone NEGATIVE ng/mL <100 medMATCH Oxycodone CONSISTENT NRG COMMENT NRG Alphahydroxyalprazolam NEGATIVE ng/mL <25 medMATCH aOH alprazolam CONSISTENT NRG Alphahydroxymidazolam NEGATIVE ng/mL < 50 medMATCH aOH midazolam CONSISTENT NRG Alphahydroxytriazolam NEGATIVE ng/mL < 50 medMATCH aOH triazolam CONSISTENT NRG Aminoclonazepam NEGATIVE ng/mL <25 medMATCH Aminoclonazepam CONSISTENT NRG Hydroxyethylflurazepam NEGATIVE ng/mL <50 medMATCH OH,Et flurazepam CONSISTENT NR G Lorazepam 101 ng/mL <50 medMATCH Lorazepam CONSISTENT NRG Nordiazepam NEGATIVE ng/mL <50 medMATCH Nordiazepam CONSISTENT NRG Oxazepam NEGATIVE ng/mL <50 medMATCH Oxazepam CONSISTENT NRG Temazepam NEGATIVE ng/mL <50 medMATCH Temazepam CONSISTENT NRG Specific [place] 1.003 > or = 1.003 Barbiturates NEGATIVE ng/mL <300 medMATCH Barbiturates CONSISTENT NRG Methadone Metabolite NEGATIVE ng/mL <100 medMATCH Methadone Metab CONSISTENT NRG Phencyclidine NEGATIVE ng/mL <25 medMATCH Phencyclidine CONSISTENT NRG Encounters ACCT No. Visit Date/Time Discharge Status Pt. Type Provider Facility Loc./Unit Complaint [id number] 09/07/2019 10:40:00 09/07/2019 23:59: 59 CLS Outpatient MILA CUR[facility]AN [facility] [id number] 01/05/2019 10:40:00 Document Registration [id number] 06/22/2019 13:28:00 019 23:59:59 CLS Outpatient BRIANNA VIDES DO [facility] RAD 6MO F/U ON RT B REAST NODULE [id number] 12/27/2018 13:25:00 019 23:59:59 CLS Outpatient BRIANNA VIDES DO [facility] RAD YEARLY,ABN MAMM O [id number] 06/24/2018 12:38:00 018 23:59:59 CLS Outpatient BRIANNA VIDES DO [facility] RAD ABNORMAL MAMMO [id number] 12/14/2017 14:34:00 018 23:59:59 CLS Outpatient BRIANNA VIDES DO [facility] RAD ABNORMAL MAMMOG MANUEL [id number] 12/03/2017 11:15:00 018 23:59:59 CLS Outpatient BRIANNA VIDES DO [facility] RAD YEARLY MAMMOGRA M [id number] 11/11/2016 14:23:00 017 23:59:59 CLS Outpatient BRIANNA VIDES DO [facility] RAD Z12.31 SCREENIN G [id number] 03/28/2016 14:53:00 016 23:59:59 CLS Outpatient BRIANNA VIDES DO [facility] RAD BACK PAIN [id number] 11/01/2014 13:55:00 015 23:59:59 CLS Outpatient BRIANNA VIDES DO [facility] RAD FALL [id number] 07/22/2013 11:04:00 014 23:59:59 CLS Outpatient BRIANNA VIDES DO [facility] RAD SCREENING [id number] 10/05/2015 11:45:00 Document Registration [id number] 09/08/2014 10:37:00 Document Registration [id number] 07/08/2012 10:35:00 Document Registration [id number] 07/03/2011 10:33:00 Document Registration [id number] 07/02/2010 10:15:00 Document Registration [id number] 05/29/2009 09:41:00 Document Registration
--- OUTSIDE RECORDS SUMMARY | 2019-09-20 23:30 | XMS REPORT ---
Author Author Afshan OLIVO Organization [facility] Address [address] [place] [address] Care Team Providers Care Sales And Distribution Clerk Name Role Phone MICHELLE OLIVO Unavailable PROBLEMS Type Condition ICD9-CM Code [id number] Code Onset Dates Condition S tatus SNOMED Code Problem Schizoaffective disorder, depressive type F25.1 Active [id number] Problem Encounter for dental examination Z01.20 Active [id number] ALLERGIES Substance Reaction Event Type Date Status Risperidone Unknown Drug Allergy Aug, Active Risperdal Unknown Drug Allergy Aug, Active SOCIAL HISTORY Never Assessed PLAN OF CARE Activity Details Follow Up 4 Weeks Reason: VITAL SIGNS Height 64.3 in 2016-08-13 Weight 240.0 lbs 2016-08-13 Heart Rate 100 bpm 2016-08-13 Respiratory Rate 20 2016-08-13 BMI 40.81 kg/m2 2016-08-13 Blood pressure systolic 146 mmHg 2016-08-13 Blood pressure diastolic 98 mmHg 2016-08-13 MEDICATIONS Medication Instructions Dosage Frequency Start Date End Date Duration S tatus Aspirin 325 MG Orally Once a day 1 tablet 24h Active Oxybutynin Chloride 5 mg Orally Once a day 1 tablet 24h Active Imipramine HCl 10 mg Orally Once a day 2 tablets at bedtime 24h Active Lorazepam 2 MG Orally Once a day 1 tablet at bedtime as needed 24h Active Depo-Provera 150 MG/ML 1 ml A ctive Topamax 100 MG Orally Once a day 2 tablets 24h Active Latuda 120 MG Orally Once a day 1 tablet with food 24h Active Levothyroxine Sodium 100 MCG Orally Once a day 1 tablet 24h Active Acetaminophen 325 MG Orally every 6 hrs 1 tablet as needed 6h Active Divalproex Sodium 500 MG Orally twice a day 2 tablets 12h Active Zovirax 5 % Externally every 3 hrs 1 application to affected area 3h Active Loratadine 10 MG Orally Once a day 1 tablet 24h Active Docusate Sodium 100 MG Orally Once a day 1 capsule as needed 24h Active RESULTS No Results PROCEDURES No Known procedures IMMUNIZATIONS No Known Immunizations
--- OUTSIDE RECORDS SUMMARY | 2019-09-20 23:30 | XMS REPORT ---
Author Author Afshan CROSS Organization [facility] Address [address] [place] [address] Care Team Providers Care Photogrammetric Stereo Compiler Name Role Phone DEB CROSS Unavailable PROBLEMS Type Condition ICD9-CM Code EAO38-RE Code Onset Dates Condition S tatus SNOMED Code Problem Schizoaffective disorder, depressive type F25.1 Active [id number] ALLERGIES Substance Reaction Event Type Date Status Risperidone Unknown Drug Allergy Jul, Active Risperdal Unknown Drug Allergy Jul, Active ENCOUNTERS Encounter Location Date Diagnosis [facility] [address] [facility] [id number] [address] [place] [phone] Jan, [facility] [address] [facility] [id number] [address] [place] [phone] Dec, [facility] [address] [facility] [id number] [address] [place] [phone] November, Schizoaffective disorder, de pressive type F25.1 and BMI 40.0-44.9, adult Z68.41 [facility] [address] [facility] [id number] [address] [place] [phone] Oct, Schizoaffective disorder, de pressive type F25.1 [facility] [address] [id number] [place] [id number] Oct, Dental examination Z01.20 [facility] [address] [facility] [id number] [address] [place] [phone] Sep, Schizoaffective disorder, de pressive type F25.1 [facility] [address] [facility] [id number] [address] [place] [phone] Aug, Schizoaffective disorder, de pressive type F25.1 and BMI 40.0-44.9, adult Z68.41 [facility] [address] [id number] [address] [place] [phone] Jul, Schizoaffective disorder, de pressive type F25.1 [facility] [address] [facility] [id number] [address] [place] [phone] Jul, Schizoaffective disorder, de pressive type F25.1 [facility] [address] [id number] [address] [place] [phone] Jul, Schizoaffective disorder, de pressive type F25.1 [facility] [address] [id number] [address] [place] [id number] Jul, Dental examination Z01.20 [facility] [address] [id number] [address] [place] [phone] Jul, Dental examination Z01.20 [facility] [address] [facility] [id number] [address] [place] [phone] Jun, Schizoaffective disorder, de pressive type F25.1 [facility] [address] [facility] [id number] [address] [place] [phone] May, Schizoaffective disorder, de pressive type F25.1 and BMI 40.0-44.9, adult Z68.41 [facility] [address] [facility] [id number] [address] [place] [phone] Apr, Schizoaffective disorder, de pressive type F25.1 [facility] [address] [facility] [id number] [address] [place] [phone] Mar, Schizoaffective disorder, de pressive type F25.1 [facility] [address] [id number] [address] [place] [phone] Mar, Dental examination Z01.[address] [id number] [id number] 30 Aug, 2017 Dental examination Z01.20 [facility] [address] [facility] [id number] [address] [place] [phone] Feb, Schizoaffective disorder, de pressive type F25.1 [facility] [address] [facility] [id number] [address] [place] [phone] Feb, Schizoaffective disorder, de pressive type F25.1 [facility] [address] [facility] [id number] [address] [place] [phone] Feb, [facility] [address] [id number] [address] [place] [phone] Feb, Schizoaffective disorder, de pressive type F25.1 [facility] [address] [facility] [id number] [address] [place] [phone] Jan, Schizoaffective disorder, de pressive type F25.1 [facility] [address] [facility] [id number] [address] [place] [phone] Jan, Well woman exam with routine gynecological exam Z01.419 [facility] [address] [facility] [id number] [address] [place] [phone] Jan, Schizoaffective disorder, de pressive type F25.1 [place] [id number] [facility] [address] [id number] [id number] Dec, Dental examination Z01.20 [facility] [address] [id number] [address] [place] [phone] Dec, Encounter for dental examina tion and cleaning without abnormal findings Z01.20 [facility] [address] [facility] [id number] [address] [place] [phone] Dec, Schizoaffective disorder, de pressive type F25.1 [facility] [address] [facility] [id number] [address] [place] [phone] Oct, Schizoaffective disorder, de pressive type F25.1 [facility] [address] [facility] [id number] [address] [place] [phone] Oct, Schizoaffective disorder, de pressive type F25.1 [facility] [address] [id number] [address] [place] [phone] Sep, Dental examination Z01.20 [facility] [address] [id number] [address] [place] [phone] Aug, Schizoaffective disorder, de pressive type F25.1 [facility] [address] [id number] [address] [place] [phone] Jul, Schizoaffective disorder, de pressive type F25.1 [facility] [address] [id number] [id number] Jun, Dental examination Z01.20 [facility] [address] [id number] [address] [place] [phone] Jun, Encounter for dental examina tion and cleaning without abnormal findings Z01.20 [facility] [address] [id number] [address] [place] [phone] Mar, Dental examination Z01.20 [facility] [address] [id number] [address] [place] [phone] Feb, Encounter for dental examina tion and cleaning without abnormal findings Z01.20 [facility] [address] [id number] [phone] November, Encounter for dental examination Z01.20 [facility] [address] [id number] [id number] Oct, Dental examination Z01.20 [facility] [address] [id number] [address] [place] [phone] Oct, Encounter for dental examina tion and cleaning without abnormal findings Z01.20 [facility] [address] [id number] [address] [place] [phone] Jul, Dental examination Z01.20 [facility] [address] [facility] [id number] [place] [phone] May, Encounter for dental examina tion Z01.20 [facility] [address] [facility] [id number] [place] [id number] Jan, Dental examination V72.2 IMMUNIZATIONS No Known Immunizations SOCIAL HISTORY Never Assessed REASON FOR VISIT PLAN OF CARE Activity Details Follow Up 6 Months Reason:LULU VITAL SIGNS MEDICATIONS Medication Instructions Dosage Frequency [...] 1 application to affected area 3h Active Depo-Provera 150 MG/ML 1 ml A ctive Lorazepam 1 MG Orally Once a day 1 tablet at bedtime as needed 24h 30 days Active Divalproex Sodium 500 mg Orally twice a day 2 tablets 12h 30 days Active Docusate Sodium 100 mg Orally twice a day 1 capsule as needed 12h Active Levothyroxine Sodium 88 MCG Orally Once a day 1 tablet 24h Active Acetaminophen 325 MG Orally every 6 hrs 1 tablet as needed 6h Active Topamax 25 MG Orally Once a day 1 tablet 24h 30 days Active Oxybutynin Chloride 5 mg Orally Once a day 1 tablet 24h Active Depakote ER 500 mg Orally 2 times a day 2 tablets 12h 25 Oct, 2016 30 days Active Latuda 80 MG Orally Once a day 1 tablet with food 24h 30 days Active RESULTS No Results PROCEDURES Procedure Date Ordered Result Body Site PERIODIC ORAL EXAMINATION Jul 08, 2017 BITEWINGS - FOUR FILMS Jul 08, 2017 INSTRUCTIONS MEDICATIONS ADMINISTERED No Known Medications
--- OUTSIDE RECORDS SUMMARY | 2019-09-20 23:30 | XMS REPORT ---
Author Author Afshan OLIVO [facility] Address [address] [place] [address] Care Team Providers Care Secondary Special Education Teacher Name Role Phone PALLAVI, DAWJAYCE Unavailable PROBLEMS Type Condition ICD9-CM Code WIP28-IR Code Onset Dates Condition S tatus SNOMED Code Problem Schizoaffective disorder, depressive type F25.1 Active 06561125 ALLERGIES Substance Reaction Event Type Date Status Risperidone Unknown Drug Allergy Dec, Active Risperdal Unknown Drug Allergy Dec, Active ENCOUNTERS Encounter Location Date Diagnosis [address] [id number] November, [place] [address] [id number] Oct, [place] [address] [id number] Sep, [place] [address] [address] Aug, Schizoaffective disorder, de pressive type F25.1 and BMI 40.0-44.9, adult Z68.41 [place] [address] [address] [place] [id number] [place] [phone] Jul, Schizoaffective disorder, de pressive type F25.1 [facility] [address] [place] [id number] [address] [place] [phone] Jul, Schizoaffective disorder, de pressive type F25.1 [facility] [address] [place] [id number] [address] [place] [phone] Jul, Schizoaffective disorder, de pressive type F25.1 [place] [id number] [id number] [address] [place] [address] [id number] Jul, Dental examination Z01.20 [facility] [address] [id number] [address] [place] [phone] Jul, Dental examination Z01.20 [facility] [address] [facility] [id number] [address] [place] [phone] Jun, Schizoaffective disorder, de pressive type F25.1 [facility] [address] [id number] [address] [place] [phone] May, Schizoaffective disorder, de pressive type F25.1 and BMI 40.0-44.[address], [address] [facility] [address] [facility] [id number] [address] [place] [phone] Apr, Schizoaffective disorder, de pressive type F25.1 [facility] [address] [facility] [id number] [address] [place] [phone] Mar, Schizoaffective disorder, de pressive type F25.1 [facility] [address] [id number] [address] [place] [address] [phone] Mar, Dental examination Z01.20 [place] [address] [facility] [address] [id number] [place] [phone] Feb, Dental examination Z01.20 [facility] [address] [facility] [id number] [address] [place] [phone] Feb, Schizoaffective disorder, de pressive type F25.1 [facility] [address] [id number] [address] [place] [phone] Feb, Schizoaffective disorder, de pressive type F25.1 [facility] [address] [id number] [address] [place] [phone] Feb, [facility] [address] [facility] [id number] [address] [place] [phone] Feb, Schizoaffective disorder, de pressive type F25.1 [facility] [address] [id number] [address] [place] [phone] Jan, Schizoaffective disorder, de pressive type F25.1 [facility] [address] [id number] [address] [place] [phone] Jan, Well woman exam with routine gynecological exam Z01.419 [facility] [address] [id number] [address] [place] [phone] Jan, Schizoaffective disorder, de pressive type F25.1 [facility] [address] [id number] [address] [place] [address] [phone] 27 Dec, 2016 Encounter for dental examina tion and cleaning without abnormal findings Z01.20 [place] [address] [facility] [address] [id number] [id number] 27 Dec, [address] [facility] [address] [id number] [address] [place] [phone] Dec, Schizoaffective disorder, de pressive type F25.1 [facility] [address] [id number] [address] [place] [phone] Oct, Schizoaffective disorder, de pressive type F25.1 [facility] [address] [id number] [address] [place] [phone] Oct, Schizoaffective disorder, de pressive type F25.1 [facility] [address] [id number] [address] [place] [phone] Sep, Dental examination Z01.20 [facility] [address] [id number] [address] [place] [phone] 08 Aug, 2016 Schizoaffective disorder, de pressive type F25.1 [facility] [address] [id number] [address] [place] [phone] Jul, Schizoaffective disorder, de pressive type F25.1 [facility] [address] [id number] [address] [place] [address] [phone] Jun, Encounter for dental examina tion and cleaning without abnormal findings Z01.20 [facility] [address] [id number] [phone] Jun, Dental examination Z01.20 [facility] [address] [id number] [address] [place] [phone] Mar, Dental examination Z01.20 [facility] [address] [id number] [address] [place] [address] [phone] Feb, Encounter for dental examina tion and cleaning without abnormal findings Z01.20 [facility] [address] [facility] [address] [id number] [id number] November, Encounter for dental examination Z01.20 [facility] [address] [facility] [address] [id number] [id number] Oct, Dental examination Z01.20 [facility] [address] [id number] [address] [place] [phone] Oct, Encounter for dental examina tion and cleaning without abnormal findings Z01.20 [facility] [address] [id number] [address] [place] [address] [phone] Jul, Dental examination Z01.20 [facility] [address] [id number] [address] [place] [phone] May, Encounter for dental examina tion Z01.20 [facility] [address] [id number] [address] [place] [phone] Jan, Dental examination V72.2 IMMUNIZATIONS No Known Immunizations SOCIAL HISTORY Never Assessed REASON FOR VISIT KAYLEIGH croft/jorje Barraza MA PLAN OF CARE Activity Details Follow Up 2 Months Reason: VITAL SIGNS Height 64.3 in 2016 Weight 240.7 lbs 2016 Heart Rate 84 bpm 2016 Respiratory Rate 20 2016 BMI 40.93 kg/m2 2016 Blood pressure systolic 134 mmHg 2016 Blood pressure diastolic 84 mmHg 2016 MEDICATIONS Medication Instructions Dosage Frequency Start Date End Date Duration S tatus Loratadine 10 MG Orally Once a day 1 tablet 24h Active Topamax 50 MG Orally Once a day 1 tablet 24h 30 days Active Docusate Sodium 100 mg Orally twice a day 1 capsule as needed 12h Active Depo-Provera 150 MG/ML 1 ml A ctive Divalproex Sodium 500 mg Orally twice a day 2 tablets 12h 30 days Active Acetaminophen 325 MG Orally [...] 1 application to affected area 3h Active Depakote ER 500 mg Orally 2 times a day 2 tablets 12h Oct, 30 days Active Levothyroxine Sodium 88 MCG Orally Once a day 1 tablet 24h Active Imipramine HCl 10 mg Orally Once a day 2 tablets at bedtime 24h Active RESULTS No Results PROCEDURES No Known procedures INSTRUCTIONS MEDICATIONS ADMINISTERED No Known Medications
--- OUTSIDE RECORDS SUMMARY | 2019-09-20 23:30 | XMS REPORT ---
Author Author Afshan BASS Organization [facility] Address [address] [place] [address] Care Team Providers Care Manager Wealth Management Name Role Phone JOHN BASS Unavailable PROBLEMS Type Condition ICD9-CM Code LHL21-EL Code Onset Dates Condition S tatus SNOMED Code Problem Schizoaffective disorder, depressive type F25.1 Active [id number] ALLERGIES No Information ENCOUNTERS Encounter Location Date Diagnosis [facility] [address] [place] [id number] [address] [place] [phone] Jan, [place] [address] [address] Dec, [facility] [address] [place] [id number] [address] [place] [phone] November, Schizoaffective disorder, de pressive type F25.1 and BMI 40.0-44.9, adult Z68.41 [place] [address] [address] [place] [id number] [address] [place] [phone] Oct, Schizoaffective disorder, de pressive type F25.1 [facility] [address] [facility] [id number] [address] [place] [address] [id number] Oct, Dental examination Z01.20 [facility] [address] [facility] [id number] [address] [place] [phone] Sep, Schizoaffective disorder, de pressive type F25.1 [facility] [address] [facility] [id number] [address] [place] [phone] 14 Aug, 2017 Schizoaffective disorder, de pressive type F25.1 and BMI 40.0-44.9, adult Z68.41 [place] [address] [id number] [address] [place] [phone] Jul, Schizoaffective disorder, de pressive type F25.1 [facility] [address] [id number] [address] [place] [phone] Jul, Schizoaffective disorder, de pressive type F25.1 [facility] [address] [id number] [address] [place] [phone] Jul, Schizoaffective disorder, de pressive type F25.1 [facility] [address] [id number] [address] [place] [address] [phone] Jul, Dental examination Z01.20 [facility] [address] [id number] [address] [place] [address] [phone] Jul, Dental examination Z01.20 [facility] [address] [facility] [id number] [address] [place] [phone] Jun, Schizoaffective disorder, de pressive type F25.1 [facility] [address] [id number] [address] [place] [phone] May, Schizoaffective disorder, de pressive type F25.1 and BMI 40.0-44.9, adult Z68.41 [facility] [address] [facility] [id number] [address] [place] [phone] Apr, Schizoaffective disorder, de pressive type F25.1 [facility] [address] [facility] [id number] [address] [place] [phone] Mar, Schizoaffective disorder, de pressive type F25.1 [facility] [address] [id number] [address] [place] [address] [phone] Mar, Dental examination Z01.20 [facility] On license of [facility] [id number] [id number] Feb, Dental examination Z01.20 [facility] [address] [id number] [address] [place] [phone] Feb, Schizoaffective disorder, de pressive type F25.1 [facility] [address] [facility] [id number] [address] [place] [phone] Feb, Schizoaffective disorder, de pressive type F25.1 [facility] [address] [facility] [id number] [address] [place] [phone] Feb, [facility] [address] [facility] [id number] [address] [place] [phone] Feb, Schizoaffective disorder, de pressive type F25.1 [facility] [address] [facility] [id number] [address] [place] [phone] Jan, Schizoaffective disorder, de pressive type F25.1 [facility] [address] [facility] [id number] [address] [place] [phone] Jan, Well woman exam with routine gynecological exam Z01.419 [facility] [address] [facility] [id number] [address] [place] [phone] Jan, Schizoaffective disorder, de pressive type F25.1 [facility] [address] [id number] [address] [place] [address] [phone] Dec, Encounter for dental examina tion and cleaning without abnormal findings Z01.[address] [place] [id number] [place] [address] [phone] Dec, Dental examination Z01.20 [facility] [address] [facility] [id number] [address] [place] [phone] Dec, Schizoaffective disorder, de pressive type F25.1 [facility] [address] [facility] [id number] [address] [place] [phone] Oct, Schizoaffective disorder, de pressive type F25.1 [facility] [address] [facility] [id number] [address] [place] [phone] Oct, Schizoaffective disorder, de pressive type F25.1 [facility] [address] [id number] [address] [place] [address] [id number] Sep, Dental examination Z01.20 [facility] [address] [id number] [address] [place] [phone] 08 Aug, 2016 Schizoaffective disorder, de pressive type F25.1 [facility] [address] [id number] [address] [place] [phone] Jul, Schizoaffective disorder, de pressive type F25.1 [facility] [address] [id number] [address] [place] [address] [id number] Jun, Encounter for dental examina tion and cleaning without abnormal findings Z01.20 [facility] [address] [facility] [address] [id number] [id number] Jun, Dental examination Z01.20 [facility] [address] [id number] [address] [place] [phone] Mar, Dental examination Z01.20 [facility] [address] [id number] [address] [place] [address] [phone] Feb, Encounter for dental examina tion and cleaning without abnormal findings Z01.20 [facility] [address] [facility] [address] [id number] [id number] November, Encounter for dental examination Z01.20 [facility] [address] [id number] [id number] Oct, Dental examination Z01.20 [facility] [address] [id number] [address] [place] [address] [phone] Oct, Encounter for dental examina tion and cleaning without abnormal findings Z01.20 [facility] [address] [id number] [address] [place] [address] [phone] Jul, Dental examination Z01.20 [facility] [address] [id number] [address] [place] [address] [phone] May, Encounter for dental examina tion Z01.20 [facility] [address] [facility] [id number] [address] [place] [id number] Jan, Dental examination V72.2 IMMUNIZATIONS No Known Immunizations SOCIAL HISTORY Never Assessed REASON FOR VISIT f/u PLAN OF CARE Activity Details Follow Up 4 Weeks Reason: VITAL SIGNS MEDICATIONS Unknown Medications RESULTS No Results PROCEDURES Procedure Date Ordered Result Body [facility] M[facility]ALTH ESTAB PT Jul 28, 2017 Psychotherapy, patient &/family, 30 minutes, established patient Jul 28, 2017 INSTRUCTIONS MEDICATIONS ADMINISTERED No Known Medications
== END 2019-09-20 21:19 | disposition home or self-care (01) ==
LOC: EDUNIT# 20:12 → ER 20:13
DX: S01.111A Laceration without foreign body of right eyelid and periocular area, initial encounter (principal); Z23 Encounter for immunization; W10.9XXA Fall (on) (from) unspecified stairs and steps, initial encounter
CPT/HCPCS: 12051; 90715

== ENCOUNTER → 2020-02-01 | Outpatient (CLI) | payer MEDICARE, MEDICAID ==
--- NOTE | 2020-02-01 16:22 | Diagnostic Imaging Report ---
EXAMINATION: Digital mammogram bilateral diagnostic with CAD. INDICATION: 6 month followup nodule right breast. COMPARISON: This study was compared to the prior exams of 06/22/2019, 12/27/2018, 06/24/2018, 12/03/2017, and 11/11/2016. PERSONAL HISTORY: At this time, there are no current complaints. FINDINGS: The previous studies have noted a stable nodule in the midportion of the right breast. That finding is again evident and no different. The fibroglandular tissue in both breasts is heterogeneously dense. This does limit the sensitivity of this exam. Overall, there does not appear to have been any significant change. There is no primary or secondary sign of malignancy noted. IMPRESSION: 1. The nodule in the right breast appears stable. Most likely, this is a benign process. 2. There is no evidence for malignancy. 3. The patient should have her annual screening mammogram on schedule in January 2021. ACR BI-RADS Category 1: Negative. Result letter will be mailed to the patient. Note: At least 10% of breast cancer is not imaged by mammography. Dictated by: Dictated on workstation # [id number]
== END ==
LOC: RAD 14:15
PROVIDERS: ATTEND Family Medicine
DX: N63.10 Unspecified lump in the right breast, unspecified quadrant (principal)
CPT/HCPCS: 77066; G0279; 77062

== ENCOUNTER → 2021-01-23 | Outpatient (CLI) | payer MEDICARE, MEDICAID ==
--- NOTE | 2021-01-23 13:30 | Diagnostic Imaging Report ---
INDICATION: Digital 2-D and 3-D screening mammography with CAD. Compared with studies 01/2020, 06/2019 and 12/2018. FINDINGS: There are scattered fibroglandular densities in the breasts present. There is no mass, architecture distortions, spiculated lesion, suspicious calcifications or interval change. There were no findings to suggest malignancy. IMPRESSION: Stable negative mammograms. ACR BI-RADS Category 2: Benign findings. Result letter will be mailed to the patient. Note: At least 10% of breast cancer is not imaged by mammography. Dictated by: Dictated on workstation # [id number]
== END ==
LOC: RAD 10:51
PROVIDERS: ATTEND Family Medicine
DX: Z12.31 Encounter for screening mammogram for malignant neoplasm of breast (principal)
CPT/HCPCS: 77063; 77067

== ENCOUNTER → 2022-01-24 | Outpatient (CLI) | payer MEDICARE, MEDICAID ==
--- NOTE | 2022-01-24 13:04 | Diagnostic Imaging Report ---
INDICATION: Routine screening. Comparison is made with prior mammogram from 01/23/2021 and 02/01/2020. 2-D and 3-D bilateral screening mammography was performed with CAD. Scattered fibroglandular densities are identified bilaterally. The parenchymal pattern is stable. No mass or malignant-appearing microcalcifications are seen. There are benign calcifications noted. Axillae are unremarkable. IMPRESSION: No mammographic features suspicious for malignancy are identified. ACR BI-RADS Category 2: Benign findings. Result letter will be mailed to the patient. Note: At least 10% of breast cancer is not imaged by mammography. BI-RADS Category 2 Dictated by: Dictated on workstation # [id number]
== END ==
LOC: RAD 11:00
PROVIDERS: ATTEND Family Medicine
DX: Z12.31 Encounter for screening mammogram for malignant neoplasm of breast (principal)
CPT/HCPCS: 77063; 77067

== ENCOUNTER → 2023-01-30 | Outpatient (CLI) | payer MEDICARE, MEDICAID ==
--- NOTE | 2023-01-30 13:39 | Diagnostic Imaging Report ---
Indication: Bilateral digital 2-D and 3-D screening with CAD. The current study was also evaluated with a Computer Aided Detection (CAD) system. COMPARISON: 01/24, 01/23 and 01/2020 FINDINGS: density 2 No breast mass, spiculated lesion, architectural distortion or changes to suggest malignancy. IMPRESSION: BI-RADS Category 1 ACR BI-RADS Category 1: Negative. Result letter will be mailed to the patient. Note: At least 10% of breast cancer is not imaged by mammography. Dictated by: Dictated on workstation # [id number]
== END ==
LOC: RAD 09:39
PROVIDERS: ATTEND Family Medicine
DX: Z12.31 Encounter for screening mammogram for malignant neoplasm of breast (principal)
CPT/HCPCS: 77063; 77067